=== PATIENT | male | born 1940 | race Hispanic/Latino ===

== ENCOUNTER 2016-03-29 14:00 | Inpatient (IN) | payer MEDICARE, OTHER ==
[2016-03-29] MEDS ORDERED: XOPENEX IH ONE (16:47)
[2016-03-29] MEDS ORDERED: MAGNESIUM SULFATE 2GM/50ML 50 ML IV ONE (16:47)
[2016-03-29] MEDS ORDERED: ATROVENT IH ONE (16:47)
--- NOTE | 2016-03-29 16:55 | Emergency Department Report ---
ED Shortness of Breath HPI - General Chief Complaint: Dyspnea/Respdistress Stated Complaint: DIFF BREATHING Time Seen by Provider: 03/29/16 16:40 Source: patient, EMS, old records reviewed Mode of arrival: Stretcher Limitations: No Limitations - History of Present Illness Initial Comments: 75-year-old male with a past medical history of COPD presents to the hospital complaining of shortness of breath 1 week. Patient using his Combivent without improvement. Symptoms with exertion. Improved with rest. He denies home oxygen or nebulizer use. Patient denies cough, fever, or chest pain. - Related Data Previous Rx's Medication Instructions Recorded Last Taken Type Pantoprazole [Protonix] 40 mg PO QDAY #30 tablet 03/13/16 Unknown Rx Allergies Allergy/AdvReac Type Severity Reaction Status Date / Time No Known Allergies Allergy Verified 03/29/16 15:03 ED Review of Systems ROS: Stated complaint: DIFF BREATHING Other details as noted in HPI Comment: All other systems reviewed and negative Other: Constitutional: No fevers chills Eyes: No eye pain visual changes ENT: No ear pain or throat pain Neck: Denies pain Respiratory: as per hpi Cardiovascular: Denies chest pain, palpitations, syncope GI: Denies abdominal pain, nausea, vomiting, diarrhea, : Denies dysuria, urinary frequency, or urgency Musculoskeletal: Denies back pain, joint swelling Skin: Denies rash, lesions, erythema Neurologic: Denies headache, numbness, weakness Psychiatric: Denies suicidal ideation, hallucinations ED Past Medical Hx - Past Medical History Hx Hypertension: Yes Hx GERD: Yes Hx COPD: Yes Additional medical history: Macular degeneration. SBO. hernia (doesn't remember what type) - Surgical History Hx Appendectomy: Yes Additional Surgical History: BLOOD CLOTS BEHIND RIGHT EYE REMOVED. CATARACT SURGERY BOTH EYES REMOVED. HERNIA REPAIR - Social History Smoking Status: Former Smoker - Medications Home Medications: Home Medications Medication Instructions Recorded Confirmed Last Taken Type Pantoprazole [Protonix] 40 mg PO QDAY #30 tablet 03/13/16 Unknown Rx ED Physical Exam - General Limitations: No Limitations - Other Other exam information: General: No limitations, patient is alert in no acute distress Head exam: Atraumatic, normocephalic Eyes exam: Normal appearance, pupils equal reactive to light, extraocular movements intact ENT: Moist mucous membrane, normal oropharynx Neck exam: Normal inspection, full range of motion, no meningismus nontender Respiratory exam: Inspiratory and expiratory wheeze, tachypnea, accessory muscle use Cardiovascular: Mild tachycardia Abdomen: Soft, nondistended, and nontender, with normal bowel sounds, no rebound, or guarding Extremity: Full range of motion normal inspection no deformity, no calf tenderness, asymmetry, or edema Back: Normal Inspection, full range of motion, no tenderness Neurologic: Alert, oriented x3, cranial nerves intact, no motor or sensory deficit Psychiatric: normal affect, normal mood Skin: Warm, dry, intactm ED Course Vital Signs 03/29/16 16:47 Pulse Rate [ 111 H Anterior Bilateral Throughout] Respiratory 26 H Rate [Anterior Bilateral Throughout] - Reevaluation(s) Reevaluation #1: 03/29/16 17:53 Physician he feels better after breathing treatments but still has significant tachypnea with movement. ED Medical Decision Making - Lab Data Result diagrams: 03/29/16 16:58 03/29/16 16:51 Lab Results 03/29/16 03/29/16 Range/Units 16:51 16:58 WBC 12.5 H (4.5-11.0) K/mm3 RBC 4.37 (3.65-5.03) M/mm3 Hgb 12.4 (11.8-15.2) gm/dl Hct 37.9 (35.5-45.6) % MCV 87 (84-94) fl MCH 28 (28-32) pg MCHC 33 (32-34) % RDW 14.4 (13.2-15.2) % Plt Count 280 (140-440) K/mm3 Lymph % (Auto) 13.8 (13.4-35.0) % [place] % (Auto) 8.3 H (0.0-7.3) % Eos % (Auto) 1.4 (0.0-4.3) % Baso % (Auto) 0.9 (0.0-1.8) % Lymph # 1.7 (1.2-5.4) K/mm3 [place] # 1.0 H (0.0-0.8) K/mm3 Eos # 0.2 (0.0-0.4) K/mm3 Baso # 0.1 (0.0-0.1) K/mm3 Seg Neutrophils % 75.6 H (40.0-70.0) % Seg Neutrophils # 9.4 H (1.8-7.7) K/mm3 Sodium 142 (137-145) mmol/L Potassium 4.0 (3.6-5.0) mmol/L Chloride 97.4 L (98-107) mmol/L Carbon Dioxide 29 (22-30) mmol/L Anion Gap 20 mmol/L BUN 17 (9-20) mg/dL Creatinine 0.5 L (0.8-1.5) mg/dL Estimated GFR > 60 ml/min BUN/Creatinine Ratio 34.00 % Glucose 120 H (75-100) mg/dL Calcium 9.5 (8.4-10.2) mg/dL Total Creatine Kinase 53 L (55-170) units/L CK-MB (CK-2) 1.9 (0.0-4.0) ng/mL CK-MB (CK-2) Rel Index 3.5 (0-4) Troponin T < 0.010 (0.00-0.029) ng/mL NT-Pro-B Natriuret Pep 102.7 (0-900) pg/mL - EKG Data -: EKG Interpreted by Me (sinus tach incomplete RBBB rate 112) - Radiology Data Radiology results: image reviewed (cxr portable: increased interstial markings likley chronic) - Medical Decision Making Patient treated with Xopenex, Atrovent, and Solu-Medrol and will be admitted to the hospital for further treatment of compartment syndrome - Differential Diagnosis COPD, pneumonia, asthma, bronchitis, CHF Critical Care Time: No Critical care attestation.: If time is entered above; I have spent that time in minutes in the direct care of this critically ill patient, excluding procedure time. ED Disposition Clinical Impression: COPD exacerbation Disposition: OP ADMITTED IP TO THIS HOSP Is pt being admited?: Yes Does the pt Need Aspirin: No Condition: Stable Time of Disposition: 17:53 (Dr Peña/hosp)
[2016-03-29 17:28] LABS: Basophils % (Auto) 0.9 % (0.0-1.8); Eosinophils % (Auto) 1.4 % (0.0-4.3); Hematocrit 37.9 % (35.5-45.6); Hemoglobin 12.4 gm/dl (11.8-15.2); Mean Corpuscular HGB Conc 33 % (32-34); Mean Corpuscular Hemoglobin 28 pg (28-32); Mean Corpuscular Volume 87 fl (84-94); Platelet Count 280 K/mm3 (140-440); Red Blood Count 4.37 M/mm3 (3.65-5.03); Red Cell Distribution Width 14.4 % (13.2-15.2); White Blood Count 12.5 K/mm3 (4.5-11.0)
[2016-03-29 17:30] LABS: Creatine Kinase MB 1.9 ng/mL (0.0-4.0)
[2016-03-29 17:31] LABS: Blood Urea Nitrogen 17 mg/dL (9-20); Calcium 9.5 mg/dL (8.4-10.2); Carbon Dioxide 29 mmol/L (22-30); Chloride 97.4 mmol/L (98-107); Creatine Kinase 53 units/L (55-170); Glucose 120 mg/dL (75-100); Sodium 142 mmol/L (137-145)
[2016-03-29 17:32] LABS: Anion Gap 20 mmol/L
[2016-03-29] MEDS ORDERED: APRESOLINE IV PRN (18:41)
--- NOTE | 2016-03-29 18:48 | History and Physical Report ---
History of Present Illness Date of examination: 03/29/16 History of present illness: 75-year-old man with a history of COPD who was just discharged from the hospital today returned with complaints shortness of breath. He has been using his nebulizer treatment without any significant improvement. He denies cough, fever chills Patient denies chest pain, palpitation, abdominal pain, hematochezia, dysuria, frequency, focal weakness, dysarthria, fever chills, polydipsia polyuria, hot or cold intolerance, easy bruisability, or rash or bleeding from mucosal membrane, rhinorrhea, epistaxis, earache, tinnitus, blurry vision, eye discharge , anxiety, depression. Other review of systems negative PAST SURGICAL HISTORY: Appendectomy, hernia repair, cataract extraction SOCIAL HISTORY: Quit smoking 8 years ago, drinks 2 beers a day, no drugs FAMILY HISTORY: Hypertension Medications and Allergies Allergies Allergy/AdvReac Type Severity Reaction Status Date / Time No Known Allergies Allergy Verified 03/29/16 15:03 Home Medications Medication Instructions Recorded Confirmed Last Taken Type Ergocalciferol (Vitamin D2) 400 unit PO DAILY 03/29/16 03/29/16 03/29/16 History [Vitamin D] Ipratropium/Albuter (Nf) 4 puff IH 4XD #1 inha 04/01/16 Unknown Rx [Combivent Inhaler] Levofloxacin [Levaquin] 750 mg PO QDAY #5 tablet 04/01/16 Unknown Rx Pantoprazole [Protonix TAB] 40 mg PO QDAY #30 tablet 04/01/16 Unknown Rx Prednisone [predniSONE 10 mg 10 mg PO .TAPER #1 tab.ds.pk 04/01/16 Unknown Rx (6-Day Pack, 21 Tabs)] Active Meds: Active Medications Hydralazine HCl (Apresoline) 5 mg IV Q6HR PRN PRN Reason: Hypertension Pantoprazole Sodium (Protonix) 40 mg PO QDAY ARSENIO Exam - Physical Exam Narrative exam: Gen. appearance: Patient lying in bed, no apparent distress HEENT: Normocephalic, atraumatic, pupils equally round and reactive to light, extraocular movement intact, and no sclericterus,. No JVD or thyromegaly or nodule,neck supple, no carotid bruit ,mucous membranes moist, no exudate or erythema Heart: S1, S2, regular rate and rhythm Lungs: Decreased air entry, wheezing bilaterally, breathing comfortable Abdomen: Positive bowel sounds, nontender, nondistended, no organomegaly Extremity: No edema, cyanosis, clubbing Skin: No rash, nodules, warm, dry Neuro: Oriented 3, cranial nerves II-12 intact, speech is fluent, motor and sensory intact - Constitutional Vitals: Temp Pulse Resp BP Pulse Ox 108 H 25 H 03/29/16 17:05 03/29/16 17:05 Results - Labs CBC & Chem 7: 03/30/16 04:56 03/30/16 04:56 Labs: Abnormal lab results 03/29/16 03/29/16 Range/Units 16:51 16:58 WBC 12.5 H (4.5-11.0) K/mm3 [place] % (Auto) 8.3 H (0.0-7.3) % [place] # 1.0 H (0.0-0.8) K/mm3 Seg Neutrophils % 75.6 H (40.0-70.0) % Seg Neutrophils # 9.4 H (1.8-7.7) K/mm3 Chloride 97.4 L (98-107) mmol/L Creatinine 0.5 L (0.8-1.5) mg/dL Glucose 120 H (75-100) mg/dL Total Creatine Kinase 53 L (55-170) units/L - Imaging and Cardiology EKG: image reviewed Chest x-ray: image reviewed (nad, read by me) Assessment and Plan COPD exacerbation Elevated blood pressure Admits medicine Start high-dose IV steroids, nebulizer treatments Check cardiac enzymes, d-dimer start IV hydralazine is here for blood pressure control, DVT prophylaxis
[2016-03-29] MEDS ORDERED: TYLENOL PO PRN (20:35)
[2016-03-29] MEDS ORDERED: MILK OF MAGNESIA PO PRN (20:35)
[2016-03-29] MEDS ORDERED: DULCOLAX PR PRN (20:35)
[2016-03-29 21:36] LABS: Creatine Kinase MB 2.2 ng/mL (0.0-4.0)
[2016-03-29 21:37] LABS: Creatine Kinase 57 units/L (55-170)
[2016-03-29] MEDS: ZOFRAN IV PRN (22:29)
[2016-03-29] MEDS: DUONEB 0.5 MG-3 MG/3 ML SOLN IH SCH (22:29)
[2016-03-30] MEDS: DUONEB 0.5 MG-3 MG/3 ML SOLN IH SCH ×4 (03:07→20:44)
[2016-03-30 05:50] LABS: Basophils % (Auto) 0.2 % (0.0-1.8); Hematocrit 33.8 % (35.5-45.6); Hemoglobin 11.3 gm/dl (11.8-15.2); Mean Corpuscular HGB Conc 34 % (32-34); Mean Corpuscular Hemoglobin 29 pg (28-32); Mean Corpuscular Volume 87 fl (84-94); Platelet Count 238 K/mm3 (140-440)
[2016-03-30 06:04] LABS: Anion Gap 20 mmol/L; BUN/Creatinine Ratio 34.28; Blood Urea Nitrogen 24 mg/dL (9-20); Calcium 9.1 mg/dL (8.4-10.2); Carbon Dioxide 29 mmol/L (22-30); Chloride 96.6 mmol/L (98-107); Glucose 215 mg/dL (75-100); Potassium 4.4 mmol/L (3.6-5.0); Sodium 141 mmol/L (137-145)
[2016-03-30 06:06] LABS: Creatine Kinase MB 2.5 ng/mL (0.0-4.0)
[2016-03-30 06:10] LABS: Creatine Kinase 56 units/L (55-170)
--- NOTE | 2016-03-30 08:15 | Progress Note ---
Assessment and Plan Assessment and plan: 1. COPD exacerbation continue steroids, nebs and abx 2. Acute hypoxic respiratory failure due to #1, continue o2 supplementation 3. elevated D-dimer obtain VQ scan 4. Prehypertension patient has been normotensive today, continue prn hydralazine History Interval history: Cough and shortness of breath is mildly improved, Hospitalist Physical - Physical exam Narrative exam: General: Patient appears well in no distress HEENT: MMM, EOMI cardiac: S1-S2 heard lungs: Pituitary wheezing, no crackles abdomen: soft, nontender, nondistended bowel sounds positive extremities: no edema clubbing or cyanosis Skin: no rash or lesion Neuro: no focal deficit Psych: appropriate behavior and mood, cognition intact - Constitutional Vitals: Temp Pulse Resp BP Pulse Ox 97.6 F 92 H 17 130/69 96 03/30/16 04:00 03/30/16 07:46 03/30/16 07:46 03/30/16 04:00 03/30/16 07:46 Results - Labs CBC & Chem 7: 03/30/16 04:56 03/30/16 04:56 Labs: Laboratory Last Values WBC 6.0 K/mm3 (4.5-11.0) 03/30/16 04:56 RBC 3.90 M/mm3 (3.65-5.03) 03/30/16 04:56 Hgb 11.3 gm/dl (11.8-15.2) L 03/30/16 04:56 Hct 33.8 % (35.5-45.6) L 03/30/16 04:56 MCV 87 fl (84-94) 03/30/16 04:56 MCH 29 pg (28-32) 03/30/16 04:56 MCHC 34 % (32-34) 03/30/16 04:56 RDW 14.0 % (13.2-15.2) 03/30/16 04:56 Plt Count 238 K/mm3 (140-440) 03/30/16 04:56 Lymph % (Auto) 10.2 % (13.4-35.0) L 03/30/16 04:56 [place] % (Auto) 1.6 % (0.0-7.3) 03/30/16 04:56 Eos % (Auto) 0.0 % (0.0-4.3) 03/30/16 04:56 Baso % (Auto) 0.2 % (0.0-1.8) 03/30/16 04:56 Lymph # 0.6 K/mm3 (1.2-5.4) L 03/30/16 04:56 [place] # 0.1 K/mm3 (0.0-0.8) 03/30/16 04:56 Eos # 0.0 K/mm3 (0.0-0.4) 03/30/16 04:56 Baso # 0.0 K/mm3 (0.0-0.1) 03/30/16 04:56 Seg Neutrophils % 88.0 % (40.0-70.0) H 03/30/16 04:56 Seg Neutrophils # 5.3 K/mm3 (1.8-7.7) 03/30/16 04:56 D-Dimer 289.96 ng/mlDDU (0-234) H 03/29/16 18:52 Sodium 141 mmol/L (137-145) 03/30/16 04:56 Potassium 4.4 mmol/L (3.6-5.0) 03/30/16 04:56 Chloride 96.6 mmol/L (98-107) L 03/30/16 04:56 Carbon Dioxide 29 mmol/L (22-30) 03/30/16 04:56 Anion Gap 20 mmol/L 03/30/16 04:56 BUN 24 mg/dL (9-20) H 03/30/16 04:56 Creatinine 0.7 mg/dL (0.8-1.5) L 03/30/16 04:56 Estimated GFR > 60 ml/min 03/30/16 04:56 BUN/Creatinine Ratio 34.28 % 03/30/16 04:56 Glucose 215 mg/dL (75-100) H 03/30/16 04:56 Calcium 9.1 mg/dL (8.4-10.2) 03/30/16 04:56 Total Creatine Kinase 56 units/L (55-170) 03/30/16 04:56 CK-MB (CK-2) 2.5 ng/mL (0.0-4.0) 03/30/16 04:56 CK-MB (CK-2) Rel Index 4.4 (0-4) H 03/30/16 04:56 Troponin T < 0.010 ng/mL (0.00-0.029) 03/30/16 04:56 NT-Pro-B Natriuret Pep 102.7 pg/mL (0-900) 03/29/16 16:51 - Imaging and Cardiology Chest x-ray: image reviewed (no infiltrate, cw COPD)
--- NOTE | 2016-03-30 08:59 | Nuclear Medicine Report ---
LUNG SCAN, VENTILATION AND PERFUSION: History: Shortness of breath. Technique: 5mci of Tc99m MAA was infused for the perfusion images. 15mci XE 133 gas was inhaled for the ventilatory images. Correlation is made with a chest x-ray dated 03/29/16. Findings: Inhalation of Xenon gas demonstrates heterogeneous distribution of the activity throughout both lungs. The wash out phases demonstrate mild retention of the radiotracer in the upper lung zones. After injection of Technetium 99m macroaggregated albumin gamma camera imaging of the lungs in multiple projections demonstrates normal pulmonary contours with a heterogeneous distribution of activity. No focal areas of perfusion deficiency are identified. IMPRESSION: Low probability for pulmonary embolus. COPD.
--- NOTE | 2016-03-30 10:24 | Admit Criteria Form ---
Admission Criteria Documentation: COPD Clinical Indications for Admission to Inpatient Care (Place 'X' for any and all applicable criteria): Admission is indicated for ANY ONE of the following (1)(2)(3): [ ]I. Acute exacerbation by high-risk comorbidity (e.g., pneumonia, dysrhythmia, heart failure, pleural effusion, pneumothorax) or severe underlying COPD (e.g., steroid dependent) [X ]II. Inpatient admission required rather than observation care (see Chronic Obstructive Pulmonary Disease: Observation Care) because of ANY ONE of the following: [X ]a) New or pre-existing signs or symptoms of COPD (eg, dyspnea or Tachypnea at rest or with minimal activity) that persist despite outpatient and observation care treatment [ ]b) New-onset hypoxemia (room air SaO2 less than 90%, PO2 less than 60 mm Hg (8.0 kPa)) that persists despite outpatient and observation care treatment [ X]c) Worsening of pre-existing hypoxemia (eg, new or increased requirement for supplemental oxygen to maintain oxygenation at baseline level) that persists despite outpatient and observation care treatment, with oxygen treatment needs performable only in acute inpatient setting [ ]d) Hypercarbia (PCO2 greater than 40 mm Hg (5.3 kPa))-induced respiratory acidosis (pH less than 7.35) that persists despite outpatient and observation care treatment [ ]e) Supplemental oxygen or respiratory treatments for over 24 hours that are performable only in acute inpatient setting [ ]f) Chest tube placement with active evacuation (e.g., suction, drainage) (5) [ ]g) Other condition, treatment or monitoring requiring inpatient admission [ ]III. Planned invasive surgical or diagnostic procedures requiring acute- care hospitalization [ ]IV. Acute respiratory failure (e.g., uncompensated hypercarbia, severe hypoxemia) [ ]V. Severe comorbid condition (e.g., severe steroid myopathy, acute vertebral fracture) that has acutely worsened pulmonary function [ ]. Confusion state, lethargy, obtundation, stupor or coma Extended stay beyond goal length of stay may be needed for (31)(32): [ ]a ) Respiratory Failure. [ ]b) Severe or persisting hypoxemia or hypercarbia [ ]c) Severe or persistent dyspnea [ ]d) Comorbidities (e.g. chronic heart failure, atrial fibrillation with rapid response, pneumonia) [ ]e) Malnutrition The original [facility] content created by [facility] has been revised. The portions of the content which have been revised are identified through the use of italic text or in bold, and [facility]formerly [facility] has neither reviewed nor approved the modified material. All other unmodified content is copyright [facility]. Please see references footnoted in the original [facility] 2016 Admission Criteria Met: Yes
[2016-03-30] MEDS: LEVAQUIN 750MG/150ML 150 ML IV SCH (11:09)
[2016-03-30] MEDS: LOVENOX SUB-Q SCH (11:11)
[2016-03-30] MEDS: PROTONIX PO SCH (11:13)
[2016-03-30] MEDS: ZOFRAN IV PRN (23:50)
[2016-03-31] MEDS: DUONEB 0.5 MG-3 MG/3 ML SOLN IH SCH ×4 (01:50→21:02)
--- NOTE | 2016-03-31 07:16 | XRay Report ---
AP CHEST: HISTORY: Shortness of breath. FINDINGS: Severe emphysematous changes are stable since 03/10/16. There is no evidence for pneumonia, pleural effusion or pneumothorax. Pleural calcifications at the right lung base are noted and may be related to previous asbestos exposure or other pleural insult. Normal heart size and pulmonary vascularity. IMPRESSION: Severe emphysema. No acute process.
[2016-03-31] MEDS: LEVAQUIN 750MG/150ML 150 ML IV SCH (09:36)
[2016-03-31] MEDS: PROTONIX PO SCH (09:37)
[2016-03-31] MEDS: LOVENOX SUB-Q SCH (09:37)
--- NOTE | 2016-03-31 11:33 | Progress Note ---
Assessment and Plan Assessment and plan: 1. COPD exacerbation continue steroids, nebs and abx 2. Acute hypoxic respiratory failure due to #1, continue o2 supplementation will need home o2 set up 3. elevated D-dimer VS scan negative 4. Prehypertension patient has been normotensive today, continue prn hydralazine tentative dc home tomorrow on home oxygen History Interval history: Cough and shortness of breath is mildly improved, Hospitalist Physical - Physical exam Narrative exam: General: Patient appears well in no distress HEENT: MMM, EOMI cardiac: S1-S2 heard lungs: Pituitary wheezing, no crackles abdomen: soft, nontender, nondistended bowel sounds positive extremities: no edema clubbing or cyanosis Skin: no rash or lesion Neuro: no focal deficit Psych: appropriate behavior and mood, cognition intact - Constitutional Vitals: Temp Pulse Resp BP Pulse Ox 98.1 F 105 H 18 145/72 98 03/31/16 07:00 03/31/16 09:30 03/31/16 09:30 03/31/16 07:00 03/31/16 09:40 Results - Labs CBC & Chem 7: 03/30/16 04:56 03/30/16 04:56 Labs: Laboratory Last Values WBC 6.0 K/mm3 (4.5-11.0) 03/30/16 04:56 RBC 3.90 M/mm3 (3.65-5.03) 03/30/16 04:56 Hgb 11.3 gm/dl (11.8-15.2) L 03/30/16 04:56 Hct 33.8 % (35.5-45.6) L 03/30/16 04:56 MCV 87 fl (84-94) 03/30/16 04:56 MCH 29 pg (28-32) 03/30/16 04:56 MCHC 34 % (32-34) 03/30/16 04:56 RDW 14.0 % (13.2-15.2) 03/30/16 04:56 Plt Count 238 K/mm3 (140-440) 03/30/16 04:56 Lymph % (Auto) 10.2 % (13.4-35.0) L 03/30/16 04:56 [place] % (Auto) 1.6 % (0.0-7.3) 03/30/16 04:56 Eos % (Auto) 0.0 % (0.0-4.3) 03/30/16 04:56 Baso % (Auto) 0.2 % (0.0-1.8) 03/30/16 04:56 Lymph # 0.6 K/mm3 (1.2-5.4) L 03/30/16 04:56 [place] # 0.1 K/mm3 (0.0-0.8) 03/30/16 04:56 Eos # 0.0 K/mm3 (0.0-0.4) 03/30/16 04:56 Baso # 0.0 K/mm3 (0.0-0.1) 03/30/16 04:56 Seg Neutrophils % 88.0 % (40.0-70.0) H 03/30/16 04:56 Seg Neutrophils # 5.3 K/mm3 (1.8-7.7) 03/30/16 04:56 D-Dimer 289.96 ng/mlDDU (0-234) H 03/29/16 18:52 Sodium 141 mmol/L (137-145) 03/30/16 04:56 Potassium 4.4 mmol/L (3.6-5.0) 03/30/16 04:56 Chloride 96.6 mmol/L (98-107) L 03/30/16 04:56 Carbon Dioxide 29 mmol/L (22-30) 03/30/16 04:56 Anion Gap 20 mmol/L 03/30/16 04:56 BUN 24 mg/dL (9-20) H 03/30/16 04:56 Creatinine 0.7 mg/dL (0.8-1.5) L 03/30/16 04:56 Estimated GFR > 60 ml/min 03/30/16 04:56 BUN/Creatinine Ratio 34.28 % 03/30/16 04:56 Glucose 215 mg/dL (75-100) H 03/30/16 04:56 Calcium 9.1 mg/dL (8.4-10.2) 03/30/16 04:56 Total Creatine Kinase 56 units/L (55-170) 03/30/16 04:56 CK-MB (CK-2) 2.5 ng/mL (0.0-4.0) 03/30/16 04:56 CK-MB (CK-2) Rel Index 4.4 (0-4) H 03/30/16 04:56 Troponin T < 0.010 ng/mL (0.00-0.029) 03/30/16 04:56 NT-Pro-B Natriuret Pep 102.7 pg/mL (0-900) 03/29/16 16:51
[2016-04-01] MEDS: DUONEB 0.5 MG-3 MG/3 ML SOLN IH SCH ×4 (02:48→21:02)
[2016-04-01] MEDS: PROTONIX PO SCH (09:01)
[2016-04-01] MEDS: LOVENOX SUB-Q SCH (09:01)
[2016-04-01] MEDS: LEVAQUIN 750MG/150ML 150 ML IV SCH (09:01)
--- NOTE | 2016-04-01 10:35 | Discharge Summary ---
Providers - Providers Date of Admission: 03/29/16 18:35 Attending physician: TAMIE LOZANO MD Primary care physician: PRODUCTION OFFICER Hospitalization Condition: Stable Hospital course: 75M with pmh of COPD who presented with SOB, HUMPHREY, and wheezing. 1. COPD exacerbation treated with steroids, nebs and abx 2. Acute hypoxic respiratory failure rx with supplemental oxygen, home oxygen set up prior to discharge 3. elevated D-dimer VS scan was negative 4. Prehypertension patient has been normotensive throughout admission course and did not require medications Disposition: DISCHARGED TO HOME OR SELFCARE Time spent for discharge: 35 minutes Core Measure Documentation - Palliative Care Palliative Care/ Comfort Measures: Not Applicable - Core Measures Any of the following diagnoses?: none Exam - Constitutional Vitals: Temp Pulse Resp BP Pulse Ox 98.2 F 111 H 18 145/68 97 03/31/16 21:38 04/01/16 09:08 04/01/16 09:08 03/31/16 21:38 04/01/16 08:50 General appearance: Present: no acute distress, well-nourished - EENT Eyes: Present: PERRL ENT: hearing intact, clear oral mucosa - Neck Neck: Present: supple, normal ROM - Respiratory Respiratory effort: normal Respiratory: bilateral: CTA - Cardiovascular Heart Sounds: Present: S1 & S2. Absent: rub, click - Extremities Extremities: pulses symmetrical, No edema Peripheral Pulses: within normal limits - Abdominal General gastrointestinal: Present: soft, non-tender, non-distended, normal bowel sounds Male genitourinary: Present: normal - Integumentary Integumentary: Present: clear, warm, dry - Musculoskeletal Musculoskeletal: gait normal, strength equal bilaterally - Psychiatric Psychiatric: appropriate mood/affect, intact judgment & insight - Neurologic Neurologic: CNII-XII intact, moves all extremities Plan Follow up with: PRIMARY CARE, [Primary Care Provider] - 3-5 Days DANIEL MAHMOOD MD [Staff Physician] - 7 Days Prescriptions: Ipratropium/Albuter (Nf) [Combivent Inhaler] 4 puff IH 4XD #1 inha Levofloxacin [Levaquin] 750 mg PO QDAY #5 tablet Pantoprazole [Protonix TAB] 40 mg PO QDAY #30 tablet Prednisone [predniSONE 10 mg (6-Day Pack, 21 Tabs)] 10 mg PO .TAPER #1 tab.ds.pk
[2016-04-01] MEDS ORDERED: LEVAQUIN PO SCH (13:00)
[2016-04-02] MEDS: DUONEB 0.5 MG-3 MG/3 ML SOLN IH SCH ×4 (02:48→20:11)
[2016-04-02] MEDS ORDERED: LEVAQUIN PO SCH (10:00)
[2016-04-02] MEDS: PROTONIX PO SCH (10:00)
[2016-04-02] MEDS: LOVENOX SUB-Q SCH (10:00)
[2016-04-02 10:16] VITALS: BP 169/78
== END 2016-04-02 14:50 | disposition home or self-care (01) | DRG 189 ==
LOC: ED 14:00 → 3A 18:35 → 2B-SURG 03-30 01:07
PROVIDERS: ADMIT Internal Medicine; ATTEND Internal Medicine
DX: J96.01 Acute respiratory failure with hypoxia (principal); J44.1 Chronic obstructive pulmonary disease with (acute) exacerbation; I10 Essential (primary) hypertension; K21.9 Gastro-esophageal reflux disease without esophagitis; Z98.42 Cataract extraction status, left eye; Z98.41 Cataract extraction status, right eye; Z87.891 Personal history of nicotine dependence; Z90.49 Acquired absence of other specified parts of digestive tract; Z82.49 Family history of ischemic heart disease and other diseases of the circulatory system; Z99.81 Dependence on supplemental oxygen
CPT/HCPCS: 36415; 71010; 78582; 80048; 82550; 82553; 83880; 84484; 85025; 85379; 93005; 93010; 94640; 94760; 96374; A9540; A9558; J0360; J1650; J1956; J2405; J2930; J3475

== ENCOUNTER 2017-02-24 20:52 | Emergency (ER) | payer MEDICARE, OTHER ==
[2017-02-24 23:35] LABS: Basophils % (Auto) 1.2 % (0.0-1.8); Eosinophils % (Auto) 2.8 % (0.0-4.3); Hematocrit 41.1 % (35.5-45.6); Hemoglobin 13.7 gm/dl (11.8-15.2); Mean Corpuscular HGB Conc 33 % (32-34); Mean Corpuscular Hemoglobin 31 pg (28-32); Mean Corpuscular Volume 92 fl (84-94); Platelet Count 222 K/mm3 (140-440); Red Blood Count 4.48 M/mm3 (3.65-5.03); Red Cell Distribution Width 13.9 % (13.2-15.2)
[2017-02-24 23:44] LABS: Anion Gap 20 mmol/L; BUN/Creatinine Ratio 34; Blood Urea Nitrogen 27 mg/dL (9-20); Calcium 9.5 mg/dL (8.4-10.2); Carbon Dioxide 29 mmol/L (22-30); Glucose 106 mg/dL (75-100); Potassium 4.6 mmol/L (3.6-5.0); Sodium 145 mmol/L (137-145)
--- NOTE | 2017-02-25 00:14 | XRay Report ---
FINAL REPORT EXAM: XR CHEST ROUTINE 2V HISTORY: chest pain TECHNIQUE: PA and lateral views of the chest were submitted. There are no previous studies available for comparison. FINDINGS: The lungs are emphysematous. There are no localized infiltrates nodules or effusions. The heart size is normal. The lungs are not congested. The skeletal structures reveal generalized osteoporosis. IMPRESSION: Emphysema. No acute process in the chest.
--- NOTE | 2017-02-25 00:50 | Emergency Department Report ---
ED Chest Pain HPI - General Chief Complaint: Chest Pain Stated Complaint: CHEST PAIN Time Seen by Provider: 02/24/17 22:55 Source: patient Mode of arrival: Ambulatory Limitations: No Limitations - History of Present Illness Initial Comments: Patient reports chest pain that started 4 days ago and started with pinpoint pain in the left intercostal ribs but feels it is going higher in the chest. no SOB but does have history of SOB. Does have history of emphysema. No HTN, DM , HL medical history. No exertional chest pain. MD Complaint: chest pain -: days(s) (4) Onset: during rest Pain Location: left chest Pain Radiation: none Severity: moderate Severity scale (0 -10): 8 Quality: sharp Consistency: constant Improves With: nothing Worsens With: palpation re: nausea (denies), diaphoresis (denies), other Other Symptoms: palpitations Treatments Prior to Arrival: none Aspirin use within the Past 7 Days: (0) No - Related Data Home Medications Medication Instructions Recorded Confirmed Last Taken Ergocalciferol(Vitamin D2)(Nf) 400 unit PO DAILY 03/29/16 03/29/16 03/29/16 [Vitamin D (Nf)] Previous Rx's Medication Instructions Recorded Last Taken Type Ipratropium/Albuter (Nf) 4 puff IH 4XD #1 inha 04/01/16 Unknown Rx [Combivent Inhaler] Levofloxacin [Levaquin] 750 mg PO QDAY #5 tablet 04/01/16 Unknown Rx Pantoprazole [Protonix TAB] 40 mg PO QDAY #30 tablet 04/01/16 Unknown Rx Prednisone [predniSONE 10 mg 10 mg PO .TAPER #1 tab.ds.pk 04/01/16 Unknown Rx (6-Day Pack, 21 Tabs)] Cyclobenzaprine [Flexeril] 10 mg PO TID PRN 10 Days #30 tablet 02/25/17 Unknown Rx Allergies Allergy/AdvReac Type Severity Reaction Status Date / Time No Known Allergies Allergy Verified 03/29/16 15:03 Heart Score - HEART Score History: Slightly suspicious EKG: Normal Age: > 65 Risk factors: No known risk factors Troponin: < normal limit HEART Score: 2 ED Review of Systems ROS: Stated complaint: CHEST PAIN Other details as noted in HPI Constitutional: denies: chills, fever Eyes: denies: eye pain, eye discharge, vision change ENT: denies: ear pain, throat pain Respiratory: denies: cough, shortness of breath, wheezing Cardiovascular: chest pain. denies: palpitations Endocrine: no symptoms reported Gastrointestinal: denies: abdominal pain, nausea, diarrhea Genitourinary: denies: urgency, dysuria Musculoskeletal: denies: back pain, joint swelling, arthralgia Skin: denies: rash, lesions Neurological: denies: headache, weakness, paresthesias Psychiatric: denies: anxiety, depression Hematological/Lymphatic: denies: easy bleeding, easy bruising ED Past Medical Hx - Past Medical History Hx Hypertension: Yes Hx GERD: Yes Hx COPD: Yes Additional medical history: Macular degeneration. SBO. hernia (doesn't remember what type) - Surgical History Hx Appendectomy: Yes Additional Surgical History: BLOOD CLOTS BEHIND RIGHT EYE REMOVED. CATARACT SURGERY BOTH EYES REMOVED. HERNIA REPAIR - Social History Smoking Status: Former Smoker - Medications Home Medications: Home Medications Medication Instructions Recorded Confirmed Last Taken Type Ergocalciferol(Vitamin D2)(Nf) 400 unit PO DAILY 03/29/16 03/29/16 03/29/16 History [Vitamin D (Nf)] Ipratropium/Albuter (Nf) 4 puff IH 4XD #1 inha 04/01/16 Unknown Rx [Combivent Inhaler] Levofloxacin [Levaquin] 750 mg PO QDAY #5 tablet 04/01/16 Unknown Rx Pantoprazole [Protonix TAB] 40 mg PO QDAY #30 tablet 04/01/16 Unknown Rx Prednisone [predniSONE 10 mg 10 mg PO .TAPER #1 tab.ds.pk 04/01/16 Unknown Rx (6-Day Pack, 21 Tabs)] Cyclobenzaprine [Flexeril] 10 mg PO TID PRN 10 Days #30 tablet 02/25/17 Unknown Rx ED Physical Exam - General Limitations: No Limitations General appearance: alert, in no apparent distress - Head Head exam: Present: atraumatic, normocephalic - Eye Eye exam: Present: normal appearance - ENT ENT exam: Present: mucous membranes moist - Neck Neck exam: Present: normal inspection - Respiratory Respiratory exam: Present: normal lung sounds bilaterally. Absent: respiratory distress - Cardiovascular Cardiovascular Exam: Present: regular rate, normal rhythm. Absent: systolic murmur, diastolic murmur, rubs, gallop - GI/Abdominal GI/Abdominal exam: Present: soft, normal bowel sounds - Rectal Rectal exam: Present: deferred - Extremities Exam Extremities exam: Present: normal inspection, other (chest wall pain with palpation) - Back Exam Back exam: Present: normal inspection - Neurological Exam Neurological exam: Present: alert, oriented X3 - Psychiatric Psychiatric exam: Present: normal affect, normal mood - Skin Skin exam: Present: warm, dry, intact, normal color. Absent: rash ED Course Vital Signs 02/24/17 02/24/17 21:04 23:53 Temperature 98.1 F Pulse Rate 10 L Respiratory 24 20 Rate Blood Pressure 166/75 O2 Sat by Pulse 94 Oximetry ED Medical Decision Making - Lab Data Result diagrams: 02/24/17 23:07 02/24/17 23:07 Unremarkable labs. - EKG Data -: EKG Interpreted by Me EKG shows normal: sinus rhythm, axis, intervals, ST-T waves Rate: normal - EKG Data Interpretation: no acute changes, normal EKG - Radiology Data CXR: no acute process. has emphysema. - Medical Decision Making Patient with normal cardiac workup. Likely musculoskeletal. Will do flexeril and he can follow up with PCP. Critical care attestation.: If time is entered above; I have spent that time in minutes in the direct care of this critically ill patient, excluding procedure time. ED Disposition Clinical Impression: Chest pain, atypical, Costochondritis, Muscle spasm Disposition: - TO HOME OR SELFCARE Is pt being admited?: No Does the pt Need Aspirin: No Condition: Stable Instructions: Chest Pain (ED) Prescriptions: Cyclobenzaprine [Flexeril] 10 mg PO TID PRN 10 Days #30 tablet PRN Reason: Muscle Spasm Referrals: [facility] [Outside] - 3-5 Days Time of Disposition: 00:55
[2017-02-25 01:11] VITALS: BP 154/71
== END 2017-02-25 01:10 | disposition home or self-care (01) ==
LOC: ED 20:52
DX: M94.0 Chondrocostal junction syndrome [Tietze] (principal); M62.838 Other muscle spasm; R07.89 Other chest pain; I10 Essential (primary) hypertension; K21.9 Gastro-esophageal reflux disease without esophagitis; J44.9 Chronic obstructive pulmonary disease, unspecified
CPT/HCPCS: 36415; 71020; 80048; 84484; 85025; 93005; 93010

== ENCOUNTER 2017-07-01 09:16 | Inpatient (IN) | payer MEDICARE, OTHER ==
[2017-07-01] MEDS ORDERED: DUONEB *Not for PRN Use IH ONE ×2 (09:55→13:41)
--- NOTE | 2017-07-01 09:55 | Emergency Department Report ---
ED General Adult HPI - General Chief complaint: Dyspnea/Respdistress Stated complaint: DIFFICULTY BREATHING Time Seen by Provider: 07/01/17 09:54 Source: patient Mode of arrival: Ambulatory Limitations: No Limitations - History of Present Illness Initial comments: copd resp distress, chronic home o2, sats were worse today w increased wob, here for poss fever, cough worse copd, here for eval worsening of his chronic lung disease with possible fever. Denies any chest pain denies any calf pain or swelling has a history of previous admits with BiPAP here today with worsening respiratory status -: Gradual Radiation: non-radiation Associated Symptoms: cough, diaphoresis, fever/chills, malaise, shortness of breath. denies: chest pain, headaches, loss of appetite, nausea/vomiting, rash , seizure, syncope, weakness - Related Data Home Medications Medication Instructions Recorded Confirmed Last Taken Ergocalciferol(Vitamin D2)(Nf) 400 unit PO DAILY 03/29/16 03/29/16 03/29/16 [Vitamin D (Nf)] Previous Rx's Medication Instructions Recorded Last Taken Type Ipratropium/Albuter (Nf) 4 puff IH 4XD #1 inha 04/01/16 Unknown Rx [Combivent Inhaler] Levofloxacin [Levaquin] 750 mg PO QDAY #5 tablet 04/01/16 Unknown Rx Pantoprazole [Protonix TAB] 40 mg PO QDAY #30 tablet 04/01/16 Unknown Rx Prednisone [predniSONE 10 mg 10 mg PO .TAPER #1 tab.ds.pk 04/01/16 Unknown Rx (6-Day Pack, 21 Tabs)] Cyclobenzaprine [Flexeril] 10 mg PO TID PRN 10 Days #30 tablet 02/25/17 Unknown Rx Allergies Allergy/AdvReac Type Severity Reaction Status Date / Time No Known Allergies Allergy Verified 03/29/16 15:03 ED Review of Systems ROS: Stated complaint: DIFFICULTY BREATHING Other details as noted in HPI Comment: All other systems reviewed and negative Constitutional: fever, malaise Eyes: denies: eye discharge, vision change ENT: denies: dental pain, hearing loss, epistaxis Respiratory: shortness of breath, SOB with exertion, SOB at rest, wheezing. denies: stridor Cardiovascular: denies: chest pain, palpitations, dyspnea on exertion, orthopnea , edema, syncope Gastrointestinal: denies: abdominal pain, nausea, vomiting, diarrhea, constipation, hematemesis, melena, hematochezia Musculoskeletal: denies: back pain, joint swelling, arthralgia, myalgia Skin: denies: rash, lesions Neurological: denies: headache, weakness, numbness, paresthesias, confusion ED Past Medical Hx - Past Medical History Previous Medical History?: Yes Hx Hypertension: Yes Hx GERD: Yes Hx COPD: Yes Additional medical history: Macular degeneration. SBO. hernia (doesn't remember what type) - Surgical History Past Surgical History?: Yes Hx Appendectomy: Yes Additional Surgical History: BLOOD CLOTS BEHIND RIGHT EYE REMOVED. CATARACT SURGERY BOTH EYES REMOVED. HERNIA REPAIR - Social History Smoking Status: Former Smoker Substance Use Type: Alcohol, Prescribed - Medications Home Medications: Home Medications Medication Instructions Recorded Confirmed Last Taken Type Ergocalciferol(Vitamin D2)(Nf) 400 unit PO DAILY 03/29/16 03/29/16 03/29/16 History [Vitamin D (Nf)] Ipratropium/Albuter (Nf) 4 puff IH 4XD #1 inha 04/01/16 Unknown Rx [Combivent Inhaler] Levofloxacin [Levaquin] 750 mg PO QDAY #5 tablet 04/01/16 Unknown Rx Pantoprazole [Protonix TAB] 40 mg PO QDAY #30 tablet 04/01/16 Unknown Rx Prednisone [predniSONE 10 mg 10 mg PO .TAPER #1 tab.ds.pk 04/01/16 Unknown Rx (6-Day Pack, 21 Tabs)] Cyclobenzaprine [Flexeril] 10 mg PO TID PRN 10 Days #30 tablet 02/25/17 Unknown Rx ED Physical Exam - General Limitations: No Limitations General appearance: alert, in distress (moderate respiratory distress) - Head Head exam: Present: atraumatic, normocephalic - Eye Eye exam: Present: PERRL, EOMI - ENT ENT exam: Present: normal exam - Neck Neck exam: Present: normal inspection. Absent: tenderness, meningismus - Respiratory Respiratory exam: Present: respiratory distress, wheezes, rales, rhonchi, accessory muscle use, prolonged expiratory. Absent: stridor - Cardiovascular Cardiovascular Exam: Present: regular rate, tachycardia, normal heart sounds - GI/Abdominal GI/Abdominal exam: Present: soft. Absent: tenderness, guarding, rebound - Extremities Exam Extremities exam: Present: normal inspection, normal capillary refill. Absent: tenderness, pedal edema, joint swelling, calf tenderness - Neurological Exam Neurological exam: Present: alert, oriented X3, CN II-XII intact. Absent: motor sensory deficit ED Course Vital Signs 07/01/17 07/01/17 07/01/17 09:41 09:48 10:00 Temperature 98.1 F Pulse Rate 123 H 120 H Respiratory 24 29 H Rate Blood Pressure 186/89 181/89 O2 Sat by Pulse 93 91 93 Oximetry 07/01/17 07/01/17 07/01/17 10:15 10:30 10:42 Temperature Pulse Rate 120 H 120 H 118 H Respiratory 22 32 H Rate Blood Pressure 177/81 173/84 O2 Sat by Pulse 93 94 Oximetry 07/01/17 07/01/17 07/01/17 10:43 10:45 11:00 Temperature Pulse Rate 116 H 115 H Respiratory 24 30 H 34 H Rate Blood Pressure 174/81 174/83 O2 Sat by Pulse 96 95 95 Oximetry 07/01/17 07/01/17 07/01/17 11:15 11:30 11:45 Temperature Pulse Rate 115 H 114 H 116 H Respiratory 31 H 35 H 34 H Rate Blood Pressure 168/84 153/87 168/89 O2 Sat by Pulse 95 94 93 Oximetry 07/01/17 07/01/17 07/01/17 12:01 12:15 12:30 Temperature Pulse Rate 119 H 113 H 117 H Respiratory 26 H 30 H 32 H Rate Blood Pressure 193/91 164/86 182/90 O2 Sat by Pulse 91 94 94 Oximetry ED Medical Decision Making - Lab Data Result diagrams: 07/01/17 10:09 07/01/17 10:06 - EKG Data EKG shows normal: sinus rhythm Rate: tachycardia - EKG Data When compared to previous EKG there are: no significant change 07/01/17 13:57 Old right bundle branch block no acute ischemic changes appreciated - Radiology Data Radiology results: report reviewed - Medical Decision Making Patient given multiple nebulizers and steroids still with respiratory distress no evidence of pneumonia on x-ray. His white count is elevated from previous visits EKG is unchanged from previous unit admission for further evaluation of COPD exacerbation he was given antibiotics and cultures case will be discussed with Dr. Murphy for admission Critical care attestation.: If time is entered above; I have spent that time in minutes in the direct care of this critically ill patient, excluding procedure time. ED Disposition Clinical Impression: COPD exacerbation, Leukocytosis Disposition: DC-[id number] OP ADMIT IP TO THIS HOSP Is pt being admited?: Yes Condition: Stable Instructions: Chronic Obstructive Pulmonary Disease (ED) Referrals: PRIMARY CARE, [Primary Care Provider] - 3-5 Days Time of Disposition: 13:59
--- NOTE | 2017-07-01 10:29 | XRay Report ---
AP CHEST: HISTORY: Short of breath The lungs are severely hyperinflated consistent with advanced emphysema. No evidence for pneumonia, pleural effusion, mass or pneumothorax. Heart size is within normal limits. The bony structures are grossly intact. IMPRESSION: Advanced emphysema.
[2017-07-01 10:35] LABS: Hematocrit 37.4 % (35.5-45.6); Hemoglobin 12.5 gm/dl (11.8-15.2); Mean Corpuscular HGB Conc 34 % (32-34); Mean Corpuscular Hemoglobin 30 pg (28-32); Mean Corpuscular Volume 90 fl (84-94); Platelet Count 290 K/mm3 (140-440); Red Blood Count 4.16 M/mm3 (3.65-5.03); Red Cell Distribution Width 13.3 % (13.2-15.2)
[2017-07-01 10:45] LABS: BUN/Creatinine Ratio 33; Blood Urea Nitrogen 20 mg/dL (9-20); Calcium 9.4 mg/dL (8.4-10.2); Hemolysis Index 57
[2017-07-01 11:37] LABS: Total Cells Counted 100
[2017-07-01 11:38] LABS: Basophils % (Manual) 0 % (0.0-1.8); Eosinophils % (Manual) 0 % (0.0-4.3); RBC Morphology Normal
[2017-07-01] MEDS ORDERED: ROCEPHIN/NS 1 GM/50 ML 1 GM/50 ML BAG IV ONE (13:43)
[2017-07-01] MEDS ORDERED: NACL 0.9% 500 ML 500 ML IV ONE (13:43)
[2017-07-01] MEDS ORDERED: ZITHROMAX PO ONE (13:43)
--- NOTE | 2017-07-01 14:14 | History and Physical Report ---
History of Present Illness Chief complaint: Cant breathe History of present illness: 75 YO Male with COPD, Chronic Respiratory Failure on Home Oxygen, HTN, GERD, Malnutrition presents to ED for evaluation. Pt states that he has experienced shortness of breath, productive cough of clear sputum over the past 2 weeks, with worsening symptoms over the past 3 days. Pt has been using his nebulizer treatment without any significant improvement. Patient denies chest pain, palpitation, abdominal pain, hematochezia, dysuria, frequency, focal weakness, dysarthria, fever, chills, polydipsia, polyuria, hot or cold intolerance, skin rash, rhinorrhea, epistaxis, earache, tinnitus, blurry vision, eye discharge, anxiety, depression, or recent ill contacts. Pt seen and evaluated in ED and found to have COPD exacerbation, Sepsis, and Acute Hypercapnic Respiratory Failure. PT admitted to medical floor. Past History Past Medical History: COPD, GERD, hypertension Past Surgical History: appendectomy, cataract removal, hernia repair Social history: . denies: smoking, alcohol abuse, prescription drug abuse Family history: no significant family history (reviewed) Medications and Allergies Allergies Allergy/AdvReac Type Severity Reaction Status Date / Time No Known Allergies Allergy Verified 03/29/16 15:03 Home Medications Medication Instructions Recorded Confirmed Last Taken Type Ipratropium/Albuter (Nf) 2 puff IH QID 07/01/17 07/01/17 Unknown History [Combivent (Nf)] Ranitidine HCl [Zantac 150 MG TAB] 150 mg PO DAILY 07/01/17 07/01/17 Unknown History Active Meds: Active Medications Ceftriaxone Sodium 1 gm/ (Sodium Chloride) 20 mls @ 2 mls/min IV ONCE ONE Stop: 07/01/17 14:54 Review of Systems Constitutional: no weight loss, no weight gain, no fever, no chills Ears, nose, mouth and throat: no ear pain, no ear discharge, no tinnitis, no decreased hearing, no nose pain, no nasal congestion, no nasal discharge Cardiovascular: no chest pain, no orthopnea, no palpitations, no syncope, no lightheadedness Respiratory: cough with sputum, excessive sputum, shortness of breath, home oxygen Gastrointestinal: no nausea, no vomiting, no diarrhea, no constipation, no change in bowel habits Genitourinary Male: no hematuria, no flank pain, no discharge, no urinary frequency, no urinary hesitancy, no nocturia Rectal: no pain, no incontinence, no bleeding Musculoskeletal: no neck stiffness, no neck pain, no shooting arm pain, no arm numbness/tingling, no low back pain, no shooting leg pain Integumentary: no rash, no pruritis, no redness, no sores, no wounds, no jaundice Neurological: no head injury, no transient paralysis, no paralysis, no weakness , no parathesias, no numbness, no tingling, no seizures Psychiatric: no anxiety, no memory loss, no change in sleep habits, no sleep disturbances, no insomnia, no hypersomnia, no change in appetite Endocrine: no cold intolerance, no heat intolerance, no polyphagia, no excessive thirst, no polydipsia Hematologic/Lymphatic: no easy bruising, no easy bleeding, no lymphadenopathy, no lymphedema Allergic/Immunologic: no urticaria, no allergic rhinitis, no wheezing, no persistent infections, no anaphylaxis, no angioedema Exam - Constitutional Vitals: Temp Pulse Resp BP Pulse Ox 98.1 F 116 H 39 H 169/81 93 07/01/17 09:41 07/01/17 13:45 07/01/17 13:45 07/01/17 13:45 07/01/17 13:45 General appearance: Present: mild distress, cachectic - EENT Eyes: Present: PERRL, miosis ENT: hearing intact, clear oral mucosa - Neck Neck: Present: supple, normal ROM - Respiratory Respiratory effort: normal Respiratory: bilateral: diminished, rhonchi - Cardiovascular Heart Sounds: Present: S1 & S2. Absent: rub, click - Extremities Extremities: pulses symmetrical, No edema Peripheral Pulses: abnormal (capillary refill greater than 3.6 seconds) - Abdominal General gastrointestinal: Present: soft, non-tender, non-distended Male genitourinary: Present: normal - Integumentary Integumentary: Present: clear, dry, clammy, decreased turgor - Musculoskeletal Musculoskeletal: generalized weakness - Psychiatric Psychiatric: appropriate mood/affect, cooperative - Neurologic Neurologic: CNII-XII intact, moves all extremities Results - Labs CBC & Chem 7: 07/01/17 10:09 07/01/17 10:06 Labs: Abnormal lab results 07/01/17 07/01/17 Range/Units 10:06 10:09 WBC 20.8 H (4.5-11.0) K/mm3 Seg Neuts % (Manual) 89.0 H (40.0-70.0) % Lymphocytes % (Manual) 6.0 L (13.4-35.0) % Seg Neutrophils # Man 18.5 H (1.8-7.7) K/mm3 Monocytes # (Manual) 1.0 H (0.0-0.8) K/mm3 Chloride 94.1 L (98-107) mmol/L Creatinine 0.6 L (0.8-1.5) mg/dL Glucose 193 H (75-100) mg/dL Assessment and Plan - Patient Problems (1) Sepsis Current Visit: Yes Status: Acute Qualifiers: Sepsis type: sepsis due to unspecified organism Qualified Code(s): A41.9 - Sepsis, unspecified organism Plan to address problem: IV abx, IVF resuscitation, blood cultures, urinalysis, chest x ray, monitor uop q shift, serial lactic acid levels, (2) Acute hypercapnic respiratory failure Current Visit: Yes Status: Acute Plan to address problem: supplemental oxygen, nebulizer therpay, ABG, NIPPV as clinically indicated, pulse oximetry (3) COPD exacerbation Current Visit: No Status: Acute Plan to address problem: IV abx, IV steroids, nebulizer therapy, supplemental oxygen, Chest X ray (4) DVT prophylaxis Current Visit: Yes Status: Acute
[2017-07-01] MEDS ORDERED: cefTRIAXone 1 GM in NACL 0.9% 20 ML IV ONE (14:45)
[2017-07-01] MEDS ORDERED: PROVENTIL IH PRN (15:29)
[2017-07-01] MEDS ORDERED: TYLENOL PO PRN (15:29)
[2017-07-01] MEDS ORDERED: ZOFRAN IV PRN (15:29)
[2017-07-01] MEDS ORDERED: SODIUM CHLORIDE FLUSH SYRINGE 10 ML IV PRN (15:29)
[2017-07-01] MEDS ORDERED: VANCOMYCIN VIAL IV ONE (15:32)
[2017-07-01] MEDS ORDERED: NACL 0.9% 1000 ML IV ONE (15:32)
[2017-07-01] MEDS ORDERED: FLEXERIL PO PRN (15:35)
[2017-07-01] MEDS ORDERED: VANCOMYCIN PHARMACY TO DOSE IV SCH (16:00)
[2017-07-01] MEDS ORDERED: PROVENTIL IH ONE (17:30)
[2017-07-01] MEDS: ZOSYN/NS 4.5GM/100ML 4.5 GM/100 ML VIAL IV SCH ×2 (18:17→23:58)
[2017-07-01] MEDS: VANCOMYCIN 1,250 MG in NACL 0.9% 250ML 250 ML IV SCH (18:45)
[2017-07-02] MEDS: SODIUM CHLORIDE FLUSH SYRINGE 10 ML IV SCH ×3 (00:01→22:30)
[2017-07-02] MEDS: ZOSYN/NS 4.5GM/100ML 4.5 GM/100 ML VIAL IV SCH ×2 (05:50→13:10)
[2017-07-02] MEDS ORDERED: D50W (25GM) Syringe IV PRN (09:00)
[2017-07-02] MEDS: VITAMIN D3 PO SCH (09:55)
[2017-07-02] MEDS: PROTONIX PO SCH (09:55)
[2017-07-02] MEDS ORDERED: ERGOCALCIFEROL 400 UNIT PO SCH (10:00)
--- NOTE | 2017-07-02 10:49 | Progress Note ---
Assessment and Plan Assessment and plan: Sepsis, probably sec to acute bronchitis versus early PNA -cont iv antibiotics -blood and urine cultures pending Acute respiratory failure with hypoxia and hypercapnia -off BIPAP -cont 02 supplementation as needed and neb tx Acute COPD exacerbation -improving -cont iv steroid, neb tx and iv antibiotics Hyperglycemia -likely sec to steroid use -started on SSI and lantus HNT -stable Disp: d/c pt when medically stable History Interval history: Patient has no new complaints. His sob has improved, he denies chest pain. Hospitalist Physical - Constitutional Vitals: Temp Pulse Resp BP Pulse Ox 97.6 F 99 H 22 122/58 99 07/02/17 06:27 07/02/17 10:00 07/02/17 06:27 07/02/17 06:27 07/02/17 06:27 General appearance: Present: no acute distress - EENT Eyes: Present: PERRL, EOM intact ENT: hearing intact, clear oral mucosa - Neck Neck: Present: supple - Respiratory Respiratory effort: normal Respiratory: bilateral: diminished - Cardiovascular Rhythm: regular Heart Sounds: Present: S1 & S2 - Extremities Extremities: No edema - Abdominal General gastrointestinal: soft, non-tender, normal bowel sounds - Integumentary Integumentary: Present: warm, dry - Neurologic Neurologic: CNII-XII intact Results - Labs CBC & Chem 7: 07/01/17 10:09 07/01/17 10:06 Labs: Laboratory Last Values WBC 20.8 K/mm3 (4.5-11.0) H 07/01/17 10:09 RBC 4.16 M/mm3 (3.65-5.03) 07/01/17 10:09 Hgb 12.5 gm/dl (11.8-15.2) 07/01/17 10:09 Hct 37.4 % (35.5-45.6) 07/01/17 10:09 MCV 90 fl (84-94) 07/01/17 10:09 MCH 30 pg (28-32) 07/01/17 10:09 MCHC 34 % (32-34) 07/01/17 10:09 RDW 13.3 % (13.2-15.2) 07/01/17 10:09 Plt Count 290 K/mm3 (140-440) 07/01/17 10:09 Add Manual Diff Complete 07/01/17 10:09 Total Counted 100 07/01/17 10:09 Seg Neuts % (Manual) 89.0 % (40.0-70.0) H 07/01/17 10:09 Band Neutrophils % 0 % 07/01/17 10:09 Lymphocytes % (Manual) 6.0 % (13.4-35.0) L 07/01/17 10:09 Reactive Lymphs % (Man) 0 % 07/01/17 10:09 Monocytes % (Manual) 5.0 % (0.0-7.3) 07/01/17 10:09 Eosinophils % (Manual) 0 % (0.0-4.3) 07/01/17 10:09 Basophils % (Manual) 0 % (0.0-1.8) 07/01/17 10:09 Metamyelocytes % 0 % 07/01/17 10:09 Myelocytes % 0 % 07/01/17 10:09 Promyelocytes % 0 % 07/01/17 10:09 Blast Cells % 0 % 07/01/17 10:09 Nucleated RBC % Not Reportable 07/01/17 10:09 Seg Neutrophils # Man 18.5 K/mm3 (1.8-7.7) H 07/01/17 10:09 Band Neutrophils # 0.0 K/mm3 07/01/17 10:09 Lymphocytes # (Manual) 1.2 K/mm3 (1.2-5.4) 07/01/17 10:09 Abs React Lymphs (Man) 0.0 K/mm3 07/01/17 10:09 Monocytes # (Manual) 1.0 K/mm3 (0.0-0.8) H 07/01/17 10:09 Eosinophils # (Manual) 0.0 K/mm3 (0.0-0.4) 07/01/17 10:09 Basophils # (Manual) 0.0 K/mm3 (0.0-0.1) 07/01/17 10:09 Metamyelocytes # 0.0 K/mm3 07/01/17 10:09 Myelocytes # 0.0 K/mm3 07/01/17 10:09 Promyelocytes # 0.0 K/mm3 07/01/17 10:09 Blast Cells # 0.0 K/mm3 07/01/17 10:09 WBC Morphology Not Reportable 07/01/17 10:09 Hypersegmented Neuts Not Reportable 07/01/17 10:09 Hyposegmented Neuts Not Reportable 07/01/17 10:09 Hypogranular Neuts Not Reportable 07/01/17 10:09 Smudge Cells Not Reportable 07/01/17 10:09 Toxic Granulation Not Reportable 07/01/17 10:09 Toxic Vacuolation Not Reportable 07/01/17 10:09 Dohle Bodies Not Reportable 07/01/17 10:09 Pelger-Huet Anomaly Not Reportable 07/01/17 10:09 Sahra Rods Not Reportable 07/01/17 10:09 Platelet Estimate Not Reportable 07/01/17 10:09 Clumped Platelets Not Reportable 07/01/17 10:09 Plt Clumps, EDTA Not Reportable 07/01/17 10:09 Large Platelets Not Reportable 07/01/17 10:09 Giant Platelets Not Reportable 07/01/17 10:09 Platelet Satelliting Not Reportable 07/01/17 10:09 Plt Morphology Comment Not Reportable 07/01/17 10:09 RBC Morphology Normal 07/01/17 10:09 Dimorphic RBCs Not Reportable 07/01/17 10:09 Polychromasia Not Reportable 07/01/17 10:09 Hypochromasia Not Reportable 07/01/17 10:09 Poikilocytosis Not Reportable 07/01/17 10:09 Anisocytosis Not Reportable 07/01/17 10:09 Microcytosis Not Reportable 07/01/17 10:09 Macrocytosis Not Reportable 07/01/17 10:09 Spherocytes Not Reportable 07/01/17 10:09 Pappenheimer Bodies Not Reportable 07/01/17 10:09 Sickle Cells Not Reportable 07/01/17 10:09 Target Cells Not Reportable 07/01/17 10:09 Tear Drop Cells Not Reportable 07/01/17 10:09 Ovalocytes Not Reportable 07/01/17 10:09 Helmet Cells Not Reportable 07/01/17 10:09 [place] Bodies Not Reportable 07/01/17 10:09 Cullen Rings Not Reportable 07/01/17 10:09 [place] Cells Not Reportable 07/01/17 10:09 Bite Cells Not Reportable 07/01/17 10:09 Crenated Cell Not Reportable 07/01/17 10:09 Elliptocytes Not Reportable 07/01/17 10:09 Acanthocytes (Spur) Not Reportable 07/01/17 10:09 Rouleaux Not Reportable 07/01/17 10:09 Hemoglobin C Crystals Not Reportable 07/01/17 10:09 Schistocytes Not Reportable 07/01/17 10:09 Malaria parasites Not Reportable 07/01/17 10:09 Chaitanya Bodies Not Reportable 07/01/17 10:09 Hem Pathologist Commnt No 07/01/17 10:09 POC ABG pH 7.416 (7.35-7.45) 07/01/17 14:14 POC ABG pCO2 57.9 (35-45) H 07/01/17 14:14 POC ABG pO2 77 (80-105) L 07/01/17 14:14 POC ABG HCO3 37.3 07/01/17 14:14 POC ABG Total CO2 39 07/01/17 14:14 POC ABG O2 Sat 95 07/01/17 14:14 POC ABG Base Excess 13 07/01/17 14:14 FiO2 32 % 07/01/17 14:14 Sodium 141 mmol/L (137-145) 07/01/17 10:06 Potassium 4.9 mmol/L (3.6-5.0) 07/01/17 10:06 Chloride 94.1 mmol/L (98-107) L 07/01/17 10:06 Carbon Dioxide 30 mmol/L (22-30) 07/01/17 10:06 Anion Gap 22 mmol/L 07/01/17 10:06 BUN 20 mg/dL (9-20) 07/01/17 10:06 Creatinine 0.6 mg/dL (0.8-1.5) L 07/01/17 10:06 Estimated GFR > 60 ml/min 07/01/17 10:06 BUN/Creatinine Ratio 33 % 07/01/17 10:06 Glucose 193 mg/dL (75-100) H 07/01/17 10:06 POC Glucose 319 (70-105) H 07/01/17 22:15 Lactic Acid 2.00 mmol/L (0.7-2.0) 04/20/18 09:21 Calcium 9.4 mg/dL (8.4-10.2) 07/01/17 10:06 Troponin T < 0.010 ng/mL (0.00-0.029) 07/01/17 10:06
[2017-07-02] MEDS: HumaLOG SUB-Q SCH ×3 (11:15→22:40)
[2017-07-02 11:46] LABS: Bilirubin,Urine NEG (Negative); Blood,Urine NEG (Negative); Color,Urine Yellow (Yellow); Urobilinogen,Urine < 2.0 mg/dL (<2.0)
[2017-07-02] MEDS: PROVENTIL IH SCH ×3 (12:00→19:46)
[2017-07-02] MEDS: VANCOMYCIN 1,250 MG in NACL 0.9% 250ML 250 ML IV SCH (16:45)
[2017-07-02] MEDS: LANTUS SUB-Q SCH (22:35)
[2017-07-03] MEDS: PROVENTIL IH SCH (00:47)
[2017-07-03] MEDS: DUONEB *Not for PRN Use IH SCH ×4 (02:16→19:14)
[2017-07-03] MEDS ORDERED: PROVENTIL IH PRN (03:25)
[2017-07-03 05:43] LABS: BUN/Creatinine Ratio 50; Blood Urea Nitrogen 25 mg/dL (9-20); Calcium 8.3 mg/dL (8.4-10.2); Hemolysis Index 14
[2017-07-03] MEDS: ZOSYN/NS 4.5GM/100ML 4.5 GM/100 ML VIAL IV SCH ×4 (05:51→21:46)
[2017-07-03 06:03] LABS: Hematocrit 33.1 % (35.5-45.6); Hemoglobin 10.8 gm/dl (11.8-15.2); Mean Corpuscular HGB Conc 33 % (32-34); Mean Corpuscular Hemoglobin 30 pg (28-32); Mean Corpuscular Volume 92 fl (84-94); Platelet Count 275 K/mm3 (140-440); Red Cell Distribution Width 14.1 % (13.2-15.2)
[2017-07-03 07:38] LABS: Band Neutrophils # (Manual) 1.4 K/mm3; Basophils % (Manual) 0 % (0.0-1.8); Eosinophils % (Manual) 0 % (0.0-4.3); Total Cells Counted 100
[2017-07-03 07:41] LABS: Anisocytosis Few
[2017-07-03] MEDS: NACL 0.9% 1000 ML 1,000 ML IV SCH ×2 (08:53→17:00)
[2017-07-03] MEDS: HumaLOG SUB-Q SCH ×4 (08:54→23:52)
[2017-07-03] MEDS: VITAMIN D3 PO SCH (09:06)
[2017-07-03] MEDS: PROTONIX PO SCH (09:06)
--- NOTE | 2017-07-03 12:01 | Progress Note ---
Assessment and Plan Assessment and plan: Sepsis, probably sec to acute bronchitis versus early PNA -cont iv antibiotics -blood and urine cultures pending Acute respiratory failure with hypoxia and hypercapnia -off BIPAP -cont 02 supplementation as needed and neb tx Acute COPD exacerbation -improving -cont iv steroid, neb tx and iv antibiotics Hyperglycemia -likely sec to steroid use -controlled on SSI and lantus HTN -stable Disp: for possible d/c in am if medically stable History Interval history: Patient reported feeling better today. He still has some shortness of breath with mild exertion Hospitalist Physical - Constitutional Vitals: Temp Pulse Resp BP Pulse Ox 98.2 F 96 H 18 110/51 94 07/03/17 07:07 07/03/17 07:32 07/03/17 07:32 07/03/17 07:07 07/03/17 07:22 General appearance: Present: no acute distress - EENT Eyes: Present: PERRL, EOM intact ENT: hearing intact - Neck Neck: Present: supple - Respiratory Respiratory effort: normal Respiratory: bilateral: diminished - Cardiovascular Rhythm: regular Heart Sounds: Present: S1 & S2 - Extremities Extremities: No edema - Abdominal General gastrointestinal: soft, non-tender, normal bowel sounds - Neurologic Neurologic: CNII-XII intact Results - Labs CBC & Chem 7: 07/03/17 05:07 07/03/17 05:07 Labs: Laboratory Last Values WBC 14.4 K/mm3 (4.5-11.0) H 07/03/17 05:07 RBC 3.60 M/mm3 (3.65-5.03) L 07/03/17 05:07 Hgb 10.8 gm/dl (11.8-15.2) L 07/03/17 05:07 Hct 33.1 % (35.5-45.6) L 07/03/17 05:07 MCV 92 fl (84-94) 07/03/17 05:07 MCH 30 pg (28-32) 07/03/17 05:07 MCHC 33 % (32-34) 07/03/17 05:07 RDW 14.1 % (13.2-15.2) 07/03/17 05:07 Plt Count 275 K/mm3 (140-440) 07/03/17 05:07 Add Manual Diff Complete 07/03/17 05:07 Total Counted 100 07/03/17 05:07 Seg Neutrophils % Perfumer 07/03/17 05:07 Seg Neuts % (Manual) 81.0 % (40.0-70.0) H 07/03/17 05:07 Band Neutrophils % 10.0 % 07/03/17 05:07 Lymphocytes % (Manual) 6.0 % (13.4-35.0) L 07/03/17 05:07 Reactive Lymphs % (Man) 0 % 07/03/17 05:07 Monocytes % (Manual) 3.0 % (0.0-7.3) 07/03/17 05:07 Eosinophils % (Manual) 0 % (0.0-4.3) 07/03/17 05:07 Basophils % (Manual) 0 % (0.0-1.8) 07/03/17 05:07 Metamyelocytes % 0 % 07/03/17 05:07 Myelocytes % 0 % 07/03/17 05:07 Promyelocytes % 0 % 07/03/17 05:07 Blast Cells % 0 % 07/03/17 05:07 Nucleated RBC % Not Reportable 07/03/17 05:07 Seg Neutrophils # Man 11.7 K/mm3 (1.8-7.7) H 07/03/17 05:07 Band Neutrophils # 1.4 K/mm3 07/03/17 05:07 Lymphocytes # (Manual) 0.9 K/mm3 (1.2-5.4) L 07/03/17 05:07 Abs React Lymphs (Man) 0.0 K/mm3 07/03/17 05:07 Monocytes # (Manual) 0.4 K/mm3 (0.0-0.8) 07/03/17 05:07 Eosinophils # (Manual) 0.0 K/mm3 (0.0-0.4) 07/03/17 05:07 Basophils # (Manual) 0.0 K/mm3 (0.0-0.1) 07/03/17 05:07 Metamyelocytes # 0.0 K/mm3 07/03/17 05:07 Myelocytes # 0.0 K/mm3 07/03/17 05:07 Promyelocytes # 0.0 K/mm3 07/03/17 05:07 Blast Cells # 0.0 K/mm3 07/03/17 05:07 WBC Morphology Not Reportable 07/03/17 05:07 Hypersegmented Neuts Not Reportable 07/03/17 05:07 Hyposegmented Neuts Not Reportable 07/03/17 05:07 Hypogranular Neuts Not Reportable 07/03/17 05:07 Smudge Cells Not Reportable 07/03/17 05:07 Toxic Granulation Not Reportable 07/03/17 05:07 Toxic Vacuolation Not Reportable 07/03/17 05:07 Dohle Bodies Not Reportable 07/03/17 05:07 Pelger-Huet Anomaly Not Reportable 07/03/17 05:07 Sahra Rods Not Reportable 07/03/17 05:07 Platelet Estimate Appears normal 07/03/17 05:07 Clumped Platelets Not Reportable 07/03/17 05:07 Plt Clumps, EDTA Not Reportable 07/03/17 05:07 Large Platelets Not Reportable 07/03/17 05:07 Giant Platelets Not Reportable 07/03/17 05:07 Platelet Satelliting Not Reportable 07/03/17 05:07 Plt Morphology Comment Not Reportable 07/03/17 05:07 RBC Morphology Not Reportable 07/03/17 05:07 Dimorphic RBCs Not Reportable 07/03/17 05:07 Polychromasia Not Reportable 07/03/17 05:07 Hypochromasia Not Reportable 07/03/17 05:07 Poikilocytosis Not Reportable 07/03/17 05:07 Anisocytosis Few 07/03/17 05:07 Microcytosis Not Reportable 07/03/17 05:07 Macrocytosis Not Reportable 07/03/17 05:07 Spherocytes Not Reportable 07/03/17 05:07 Pappenheimer Bodies Not Reportable 07/03/17 05:07 Sickle Cells Not Reportable 07/03/17 05:07 Target Cells Not Reportable 07/03/17 05:07 Tear Drop Cells Not Reportable 07/03/17 05:07 Ovalocytes Not Reportable 07/03/17 05:07 Helmet Cells Not Reportable 07/03/17 05:07 [place] Bodies Not Reportable 07/03/17 05:07 [place] Rings Not Reportable 07/03/17 05:07 [place] Cells Not Reportable 07/03/17 05:07 Bite Cells Not Reportable 07/03/17 05:07 Crenated Cell Not Reportable 07/03/17 05:07 Elliptocytes Not Reportable 07/03/17 05:07 Acanthocytes (Spur) Not Reportable 07/03/17 05:07 Rouleaux Not Reportable 07/03/17 05:07 Hemoglobin C Crystals Not Reportable 07/03/17 05:07 Schistocytes Not Reportable 07/03/17 05:07 Malaria parasites Not Reportable 07/03/17 05:07 Chaitanya Bodies Not Reportable 07/03/17 05:07 Hem Pathologist Commnt No 07/03/17 05:07 POC ABG pH 7.416 (7.35-7.45) 07/01/17 14:14 POC ABG pCO2 57.9 (35-45) H 07/01/17 14:14 POC ABG pO2 77 (80-105) L 07/01/17 14:14 POC ABG HCO3 37.3 07/01/17 14:14 POC ABG Total CO2 39 07/01/17 14:14 POC ABG O2 Sat 95 07/01/17 14:14 POC ABG Base Excess 13 07/01/17 14:14 FiO2 32 % 07/01/17 14:14 Sodium 144 mmol/L (137-145) 07/03/17 05:07 Potassium 3.9 mmol/L (3.6-5.0) D 07/03/17 05:07 Chloride 100.6 mmol/L (98-107) 07/03/17 05:07 Carbon Dioxide 33 mmol/L (22-30) H 07/03/17 05:07 Anion Gap 14 mmol/L 07/03/17 05:07 BUN 25 mg/dL (9-20) H 07/03/17 05:07 Creatinine 0.5 mg/dL (0.8-1.5) L 07/03/17 05:07 Estimated GFR > 60 ml/min 07/03/17 05:07 BUN/Creatinine Ratio 50 % 07/03/17 05:07 Glucose 123 mg/dL (75-100) H 07/03/17 05:07 POC Glucose 157 (70-105) H 07/03/17 07:48 Lactic Acid 1.80 mmol/L (0.7-2.0) 07/02/17 10:27 Calcium 8.3 mg/dL (8.4-10.2) L 07/03/17 05:07 Troponin T < 0.010 ng/mL (0.00-0.029) 07/01/17 10:06 Urine Color Yellow (Yellow) 07/02/17 08:57 Urine Turbidity Clear (Clear) 07/02/17 08:57 Urine pH 5.0 (5.0-7.0) 07/02/17 08:57 Ur Specific [place] 1.032 (1.003-1.030) H 07/02/17 08:57 Urine Protein 100 mg/dl mg/dL (Negative) 07/02/17 08:57 Urine Glucose (UA) 150 mg/dL (Negative) 07/02/17 08:57 Urine Ketones Neg mg/dL (Negative) 07/02/17 08:57 Urine Blood Neg (Negative) 07/02/17 08:57 Urine Nitrite Neg (Negative) 07/02/17 08:57 Urine Bilirubin Neg (Negative) 07/02/17 08:57 Urine Urobilinogen < 2.0 mg/dL (<2.0) 07/02/17 08:57 Ur Leukocyte Esterase Neg (Negative) 07/02/17 08:57 Urine WBC (Auto) 5.0 /HPF (0.0-6.0) 07/02/17 08:57 Urine RBC (Auto) 2.0 /HPF (0.0-6.0) 07/02/17 08:57 U Epithel Cells (Auto) 1.0 /HPF (0-13.0) 07/02/17 08:57 Urine Yeast (Budding) Few /HPF 07/02/17 08:57
[2017-07-03] MEDS: SODIUM CHLORIDE FLUSH SYRINGE 10 ML IV SCH ×2 (14:01→21:48)
[2017-07-03] MEDS: VANCOMYCIN 1,250 MG in NACL 0.9% 250ML 250 ML IV SCH (16:55)
[2017-07-03] MEDS: LANTUS SUB-Q SCH (21:46)
[2017-07-04] MEDS: DUONEB *Not for PRN Use IH SCH ×5 (02:47→19:54)
[2017-07-04] MEDS: ZOSYN/NS 4.5GM/100ML 4.5 GM/100 ML VIAL IV SCH ×3 (05:27→21:09)
[2017-07-04] MEDS: NACL 0.9% 1000 ML 1,000 ML IV SCH ×2 (05:30→21:09)
[2017-07-04] MEDS: HumaLOG SUB-Q SCH ×4 (08:30→22:45)
[2017-07-04] MEDS: VITAMIN D3 PO SCH (10:01)
[2017-07-04] MEDS: PROTONIX PO SCH (10:01)
[2017-07-04] MEDS: SODIUM CHLORIDE FLUSH SYRINGE 10 ML IV SCH ×2 (10:02→21:10)
--- NOTE | 2017-07-04 13:45 | Progress Note ---
Assessment and Plan Assessment and plan: Sepsis, probably sec to acute bronchitis versus early PNA -cont iv antibiotics, wbc level trended down -blood and urine cultures neg so far Acute respiratory failure with hypoxia and hypercapnia -cont BIPAP prn -cont 02 supplementation as needed and neb tx Acute COPD exacerbation -improved -cont iv steroid, neb tx and iv antibiotics Hyperglycemia -probably sec to steroid use -controlled on SSI and lantus -will check HBA1C level HTN -stable Disp: Due to change in pt's respiratory status, will hold discharge for today and monitor him for another 24-48hours. History Interval history: Patient was seen this morning. He was noted to be markedly dyspneic. Patient was given breathing treatment with little improvement Hospitalist Physical - Constitutional Vitals: Temp Pulse Resp BP Pulse Ox 97.8 F 120 H 26 H 155/78 96 07/04/17 07:11 07/04/17 12:55 07/04/17 12:55 07/04/17 07:11 07/04/17 07:28 General appearance: Present: mild distress - EENT Eyes: Present: PERRL, EOM intact ENT: hearing intact - Neck Neck: Present: supple - Respiratory Respiratory effort: normal Respiratory: bilateral: diminished - Cardiovascular Rhythm: other (tachycardia with regular rhythm) Heart Sounds: Present: S1 & S2 - Extremities Extremities: No edema - Abdominal General gastrointestinal: soft, non-tender, normal bowel sounds - Neurologic Neurologic: CNII-XII intact Results - Labs CBC & Chem 7: 07/03/17 05:07 07/03/17 05:07 Labs: Laboratory Last Values WBC 14.4 K/mm3 (4.5-11.0) H 07/03/17 05:07 RBC 3.60 M/mm3 (3.65-5.03) L 07/03/17 05:07 Hgb 10.8 gm/dl (11.8-15.2) L 07/03/17 05:07 Hct 33.1 % (35.5-45.6) L 07/03/17 05:07 MCV 92 fl (84-94) 07/03/17 05:07 MCH 30 pg (28-32) 07/03/17 05:07 MCHC 33 % (32-34) 07/03/17 05:07 RDW 14.1 % (13.2-15.2) 07/03/17 05:07 Plt Count 275 K/mm3 (140-440) 07/03/17 05:07 Add Manual Diff Complete 07/03/17 05:07 Total Counted 100 07/03/17 05:07 Seg Neutrophils % [employer] 07/03/17 05:07 Seg Neuts % (Manual) 81.0 % (40.0-70.0) H 07/03/17 05:07 Band Neutrophils % 10.0 % 07/03/17 05:07 Lymphocytes % (Manual) 6.0 % (13.4-35.0) L 07/03/17 05:07 Reactive Lymphs % (Man) 0 % 07/03/17 05:07 Monocytes % (Manual) 3.0 % (0.0-7.3) 07/03/17 05:07 Eosinophils % (Manual) 0 % (0.0-4.3) 07/03/17 05:07 Basophils % (Manual) 0 % (0.0-1.8) 07/03/17 05:07 Metamyelocytes % 0 % 07/03/17 05:07 Myelocytes % 0 % 07/03/17 05:07 Promyelocytes % 0 % 07/03/17 05:07 Blast Cells % 0 % 07/03/17 05:07 Nucleated RBC % Not Reportable 07/03/17 05:07 Seg Neutrophils # Man 11.7 K/mm3 (1.8-7.7) H 07/03/17 05:07 Band Neutrophils # 1.4 K/mm3 07/03/17 05:07 Lymphocytes # (Manual) 0.9 K/mm3 (1.2-5.4) L 07/03/17 05:07 Abs React Lymphs (Man) 0.0 K/mm3 07/03/17 05:07 Monocytes # (Manual) 0.4 K/mm3 (0.0-0.8) 07/03/17 05:07 Eosinophils # (Manual) 0.0 K/mm3 (0.0-0.4) 07/03/17 05:07 Basophils # (Manual) 0.0 K/mm3 (0.0-0.1) 07/03/17 05:07 Metamyelocytes # 0.0 K/mm3 07/03/17 05:07 Myelocytes # 0.0 K/mm3 07/03/17 05:07 Promyelocytes # 0.0 K/mm3 07/03/17 05:07 Blast Cells # 0.0 K/mm3 07/03/17 05:07 WBC Morphology Not Reportable 07/03/17 05:07 Hypersegmented Neuts Not Reportable 07/03/17 05:07 Hyposegmented Neuts Not Reportable 07/03/17 05:07 Hypogranular Neuts Not Reportable 07/03/17 05:07 Smudge Cells Not Reportable 07/03/17 05:07 Toxic Granulation Not Reportable 07/03/17 05:07 Toxic Vacuolation Not Reportable 07/03/17 05:07 Dohle Bodies Not Reportable 07/03/17 05:07 Pelger-Huet Anomaly Not Reportable 07/03/17 05:07 Sahra Rods Not Reportable 07/03/17 05:07 Platelet Estimate Appears normal 07/03/17 05:07 Clumped Platelets Not Reportable 07/03/17 05:07 Plt Clumps, EDTA Not Reportable 07/03/17 05:07 Large Platelets Not Reportable 07/03/17 05:07 Giant Platelets Not Reportable 07/03/17 05:07 Platelet Satelliting Not Reportable 07/03/17 05:07 Plt Morphology Comment Not Reportable 07/03/17 05:07 RBC Morphology Not Reportable 07/03/17 05:07 Dimorphic RBCs Not Reportable 07/03/17 05:07 Polychromasia Not Reportable 07/03/17 05:07 Hypochromasia Not Reportable 07/03/17 05:07 Poikilocytosis Not Reportable 07/03/17 05:07 Anisocytosis Few 07/03/17 05:07 Microcytosis Not Reportable 07/03/17 05:07 Macrocytosis Not Reportable 07/03/17 05:07 Spherocytes Not Reportable 07/03/17 05:07 Pappenheimer Bodies Not Reportable 07/03/17 05:07 Sickle Cells Not Reportable 07/03/17 05:07 Target Cells Not Reportable 07/03/17 05:07 Tear Drop Cells Not Reportable 07/03/17 05:07 Ovalocytes Not Reportable 07/03/17 05:07 Helmet Cells Not Reportable 07/03/17 05:07 [place] Bodies Not Reportable 07/03/17 05:07 [place] Rings Not Reportable 07/03/17 05:07 [place] Cells Not Reportable 07/03/17 05:07 Bite Cells Not Reportable 07/03/17 05:07 Crenated Cell Not Reportable 07/03/17 05:07 Elliptocytes Not Reportable 07/03/17 05:07 Acanthocytes (Spur) Not Reportable 07/03/17 05:07 Rouleaux Not Reportable 07/03/17 05:07 Hemoglobin C Crystals Not Reportable 07/03/17 05:07 Schistocytes Not Reportable 07/03/17 05:07 Malaria parasites Not Reportable 07/03/17 05:07 Chaitanya Bodies Not Reportable 07/03/17 05:07 Hem Pathologist Commnt No 07/03/17 05:07 POC ABG pH 7.416 (7.35-7.45) 07/01/17 14:14 POC ABG pCO2 57.9 (35-45) H 07/01/17 14:14 POC ABG pO2 77 (80-105) L 07/01/17 14:14 POC ABG HCO3 37.3 07/01/17 14:14 POC ABG Total CO2 39 07/01/17 14:14 POC ABG O2 Sat 95 07/01/17 14:14 POC ABG Base Excess 13 07/01/17 14:14 FiO2 32 % 07/01/17 14:14 Sodium 144 mmol/L (137-145) 07/03/17 05:07 Potassium 3.9 mmol/L (3.6-5.0) D 07/03/17 05:07 Chloride 100.6 mmol/L (98-107) 07/03/17 05:07 Carbon Dioxide 33 mmol/L (22-30) H 07/03/17 05:07 Anion Gap 14 mmol/L 07/03/17 05:07 BUN 25 mg/dL (9-20) H 07/03/17 05:07 Creatinine 0.5 mg/dL (0.8-1.5) L 07/03/17 05:07 Estimated GFR > 60 ml/min 07/03/17 05:07 BUN/Creatinine Ratio 50 % 07/03/17 05:07 Glucose 123 mg/dL (75-100) H 07/03/17 05:07 POC Glucose 188 (70-105) H 07/04/17 11:36 Lactic Acid 1.80 mmol/L (0.7-2.0) 07/02/17 10:27 Calcium 8.3 mg/dL (8.4-10.2) L 07/03/17 05:07 Troponin T < 0.010 ng/mL (0.00-0.029) 07/01/17 10:06 Urine Color Yellow (Yellow) 07/02/17 08:57 Urine Turbidity Clear (Clear) 07/02/17 08:57 Urine pH 5.0 (5.0-7.0) 07/02/17 08:57 Ur Specific [place] 1.032 (1.003-1.030) H 07/02/17 08:57 Urine Protein 100 mg/dl mg/dL (Negative) 07/02/17 08:57 Urine Glucose (UA) 150 mg/dL (Negative) 07/02/17 08:57 Urine Ketones Neg mg/dL (Negative) 07/02/17 08:57 Urine Blood Neg (Negative) 07/02/17 08:57 Urine Nitrite Neg (Negative) 07/02/17 08:57 Urine Bilirubin Neg (Negative) 07/02/17 08:57 Urine Urobilinogen < 2.0 mg/dL (<2.0) 07/02/17 08:57 Ur Leukocyte Esterase Neg (Negative) 07/02/17 08:57 Urine WBC (Auto) 5.0 /HPF (0.0-6.0) 07/02/17 08:57 Urine RBC (Auto) 2.0 /HPF (0.0-6.0) 07/02/17 08:57 U Epithel Cells (Auto) 1.0 /HPF (0-13.0) 07/02/17 08:57 Urine Yeast (Budding) Few /HPF 07/02/17 08:57
[2017-07-04] MEDS ORDERED: APRESOLINE IV PRN (13:48)
[2017-07-04] MEDS: VANCOMYCIN 1,250 MG in NACL 0.9% 250ML 250 ML IV SCH (17:35)
[2017-07-04] MEDS: LANTUS SUB-Q SCH (21:10)
[2017-07-05] MEDS: ZOSYN/NS 4.5GM/100ML 4.5 GM/100 ML VIAL IV SCH ×3 (05:32→21:18)
[2017-07-05] MEDS: NACL 0.9% 1000 ML 1,000 ML IV SCH ×2 (05:38→16:46)
[2017-07-05] MEDS: HumaLOG SUB-Q SCH ×4 (07:50→22:34)
[2017-07-05] MEDS: DUONEB *Not for PRN Use IH SCH ×4 (08:57→19:14)
[2017-07-05] MEDS ORDERED: XOPENEX IH PRN (10:07)
[2017-07-05] MEDS: PROTONIX PO SCH (10:26)
[2017-07-05] MEDS: VITAMIN D3 PO SCH (10:27)
[2017-07-05] MEDS: SODIUM CHLORIDE FLUSH SYRINGE 10 ML IV SCH ×2 (10:27→21:28)
--- NOTE | 2017-07-05 12:14 | Progress Note ---
Assessment and Plan Assessment and plan: Sepsis, probably sec to acute bronchitis versus early PNA -cont iv antibiotics, wbc level trended down -blood and urine cultures neg so far Acute respiratory failure with hypoxia and hypercapnia -cont BIPAP prn -cont 02 supplementation as needed and neb tx Acute COPD exacerbation -cont iv steroid, neb tx and iv antibiotics -due to the persistent tachypnea, will do further eval with chest CT scan -will consult pulmonology Hyperglycemia -probably sec to steroid use -controlled on SSI and lantus -HBA1C level: 5.9 HTN with sinus tachycardia -oral diltiazem started Disp: will d/c pt when medically stable History Interval history: Pt continues to be dyspneic with mild exertion. He denies chest pain. Hospitalist Physical - Constitutional Vitals: Temp Pulse Resp BP Pulse Ox 97.5 F L 117 H 20 135/74 98 07/05/17 07:17 07/05/17 10:00 07/05/17 07:17 07/05/17 07:17 07/05/17 09:00 General appearance: Present: mild distress - EENT Eyes: Present: PERRL, EOM intact ENT: hearing intact, clear oral mucosa - Neck Neck: Present: supple - Respiratory Respiratory effort: normal Respiratory: bilateral: diminished - Cardiovascular Heart Sounds: Present: S1 & S2 (tachycardia with regular rhythm) - Extremities Extremities: No edema - Abdominal General gastrointestinal: soft, non-tender, normal bowel sounds - Integumentary Integumentary: Present: warm, dry - Neurologic Neurologic: CNII-XII intact Results - Labs CBC & Chem 7: 07/03/17 05:07 07/03/17 05:07 Labs: Laboratory Last Values WBC 14.4 K/mm3 (4.5-11.0) H 07/03/17 05:07 RBC 3.60 M/mm3 (3.65-5.03) L 07/03/17 05:07 Hgb 10.8 gm/dl (11.8-15.2) L 07/03/17 05:07 Hct 33.1 % (35.5-45.6) L 07/03/17 05:07 MCV 92 fl (84-94) 07/03/17 05:07 MCH 30 pg (28-32) 07/03/17 05:07 MCHC 33 % (32-34) 07/03/17 05:07 RDW 14.1 % (13.2-15.2) 07/03/17 05:07 Plt Count 275 K/mm3 (140-440) 07/03/17 05:07 Add Manual Diff Complete 07/03/17 05:07 Total Counted 100 07/03/17 05:07 Seg Neutrophils % Hose Operator 07/03/17 05:07 Seg Neuts % (Manual) 81.0 % (40.0-70.0) H 07/03/17 05:07 Band Neutrophils % 10.0 % 07/03/17 05:07 Lymphocytes % (Manual) 6.0 % (13.4-35.0) L 07/03/17 05:07 Reactive Lymphs % (Man) 0 % 07/03/17 05:07 Monocytes % (Manual) 3.0 % (0.0-7.3) 07/03/17 05:07 Eosinophils % (Manual) 0 % (0.0-4.3) 07/03/17 05:07 Basophils % (Manual) 0 % (0.0-1.8) 07/03/17 05:07 Metamyelocytes % 0 % 07/03/17 05:07 Myelocytes % 0 % 07/03/17 05:07 Promyelocytes % 0 % 07/03/17 05:07 Blast Cells % 0 % 07/03/17 05:07 Nucleated RBC % Not Reportable 07/03/17 05:07 Seg Neutrophils # Man 11.7 K/mm3 (1.8-7.7) H 07/03/17 05:07 Band Neutrophils # 1.4 K/mm3 07/03/17 05:07 Lymphocytes # (Manual) 0.9 K/mm3 (1.2-5.4) L 07/03/17 05:07 Abs React Lymphs (Man) 0.0 K/mm3 07/03/17 05:07 Monocytes # (Manual) 0.4 K/mm3 (0.0-0.8) 07/03/17 05:07 Eosinophils # (Manual) 0.0 K/mm3 (0.0-0.4) 07/03/17 05:07 Basophils # (Manual) 0.0 K/mm3 (0.0-0.1) 07/03/17 05:07 Metamyelocytes # 0.0 K/mm3 07/03/17 05:07 Myelocytes # 0.0 K/mm3 07/03/17 05:07 Promyelocytes # 0.0 K/mm3 07/03/17 05:07 Blast Cells # 0.0 K/mm3 07/03/17 05:07 WBC Morphology Not Reportable 07/03/17 05:07 Hypersegmented Neuts Not Reportable 07/03/17 05:07 Hyposegmented Neuts Not Reportable 07/03/17 05:07 Hypogranular Neuts Not Reportable 07/03/17 05:07 Smudge Cells Not Reportable 07/03/17 05:07 Toxic Granulation Not Reportable 07/03/17 05:07 Toxic Vacuolation Not Reportable 07/03/17 05:07 Dohle Bodies Not Reportable 07/03/17 05:07 Pelger-Huet Anomaly Not Reportable 07/03/17 05:07 Sahra Rods Not Reportable 07/03/17 05:07 Platelet Estimate Appears normal 07/03/17 05:07 Clumped Platelets Not Reportable 07/03/17 05:07 Plt Clumps, EDTA Not Reportable 07/03/17 05:07 Large Platelets Not Reportable 07/03/17 05:07 Giant Platelets Not Reportable 07/03/17 05:07 Platelet Satelliting Not Reportable 07/03/17 05:07 Plt Morphology Comment Not Reportable 07/03/17 05:07 RBC Morphology Not Reportable 07/03/17 05:07 Dimorphic RBCs Not Reportable 07/03/17 05:07 Polychromasia Not Reportable 07/03/17 05:07 Hypochromasia Not Reportable 07/03/17 05:07 Poikilocytosis Not Reportable 07/03/17 05:07 Anisocytosis Few 07/03/17 05:07 Microcytosis Not Reportable 07/03/17 05:07 Macrocytosis Not Reportable 07/03/17 05:07 Spherocytes Not Reportable 07/03/17 05:07 Pappenheimer Bodies Not Reportable 07/03/17 05:07 Sickle Cells Not Reportable 07/03/17 05:07 Target Cells Not Reportable 07/03/17 05:07 Tear Drop Cells Not Reportable 07/03/17 05:07 Ovalocytes Not Reportable 07/03/17 05:07 Helmet Cells Not Reportable 07/03/17 05:07 [place] Bodies Not Reportable 07/03/17 05:07 [place] Rings Not Reportable 07/03/17 05:07 [place] Cells Not Reportable 07/03/17 05:07 Bite Cells Not Reportable 07/03/17 05:07 Crenated Cell Not Reportable 07/03/17 05:07 Elliptocytes Not Reportable 07/03/17 05:07 Acanthocytes (Spur) Not Reportable 07/03/17 05:07 Rouleaux Not Reportable 07/03/17 05:07 Hemoglobin C Crystals Not Reportable 07/03/17 05:07 Schistocytes Not Reportable 07/03/17 05:07 Malaria parasites Not Reportable 07/03/17 05:07 Chaitanya Bodies Not Reportable 07/03/17 05:07 Hem Pathologist Commnt No 07/03/17 05:07 POC ABG pH 7.416 (7.35-7.45) 07/01/17 14:14 POC ABG pCO2 57.9 (35-45) H 07/01/17 14:14 POC ABG pO2 77 (80-105) L 07/01/17 14:14 POC ABG HCO3 37.3 07/01/17 14:14 POC ABG Total CO2 39 07/01/17 14:14 POC ABG O2 Sat 95 07/01/17 14:14 POC ABG Base Excess 13 07/01/17 14:14 FiO2 32 % 07/01/17 14:14 Sodium 144 mmol/L (137-145) 07/03/17 05:07 Potassium 3.9 mmol/L (3.6-5.0) D 07/03/17 05:07 Chloride 100.6 mmol/L (98-107) 07/03/17 05:07 Carbon Dioxide 33 mmol/L (22-30) H 07/03/17 05:07 Anion Gap 14 mmol/L 07/03/17 05:07 BUN 25 mg/dL (9-20) H 07/03/17 05:07 Creatinine 0.5 mg/dL (0.8-1.5) L 07/03/17 05:07 Estimated GFR > 60 ml/min 07/03/17 05:07 BUN/Creatinine Ratio 50 % 07/03/17 05:07 Glucose 123 mg/dL (75-100) H 07/03/17 05:07 POC Glucose 145 (70-105) H 07/05/17 11:27 Hemoglobin A1c 5.9 % (4-6) 07/05/17 04:52 Lactic Acid 1.80 mmol/L (0.7-2.0) 07/02/17 10:27 Calcium 8.3 mg/dL (8.4-10.2) L 07/03/17 05:07 Troponin T < 0.010 ng/mL (0.00-0.029) 07/01/17 10:06 Urine Color Yellow (Yellow) 07/02/17 08:57 Urine Turbidity Clear (Clear) 07/02/17 08:57 Urine pH 5.0 (5.0-7.0) 07/02/17 08:57 Ur Specific [place] 1.032 (1.003-1.030) H 07/02/17 08:57 Urine Protein 100 mg/dl mg/dL (Negative) 07/02/17 08:57 Urine Glucose (UA) 150 mg/dL (Negative) 07/02/17 08:57 Urine Ketones Neg mg/dL (Negative) 07/02/17 08:57 Urine Blood Neg (Negative) 07/02/17 08:57 Urine Nitrite Neg (Negative) 07/02/17 08:57 Urine Bilirubin Neg (Negative) 07/02/17 08:57 Urine Urobilinogen < 2.0 mg/dL (<2.0) 07/02/17 08:57 Ur Leukocyte Esterase Neg (Negative) 07/02/17 08:57 Urine WBC (Auto) 5.0 /HPF (0.0-6.0) 07/02/17 08:57 Urine RBC (Auto) 2.0 /HPF (0.0-6.0) 07/02/17 08:57 U Epithel Cells (Auto) 1.0 /HPF (0-13.0) 07/02/17 08:57 Urine Yeast (Budding) Few /HPF 07/02/17 08:57
[2017-07-05] MEDS: CARDIZEM PO SCH ×2 (12:21→18:03)
--- NOTE | 2017-07-05 15:31 | Consultation ---
History of Present Illness Consult date: 07/05/17 Requesting physician: RADUEL TOLBERT Reason for consult: COPD History of present illness: 77 y/o male admitted with COPD exacerbation. Followed by Dr. De Leon on the outside whom the patient states takes care of his lungs. Consulted by hospitalist service after 4 days of admission. Patient states that his breathing is stable. He has received a large amount of fluid over the last several days. 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 Past History Past Medical History: COPD, GERD, hypertension Past Surgical History: appendectomy, cataract removal, hernia repair Social history: . denies: smoking, alcohol abuse, prescription drug abuse Family history: no significant family history (reviewed) Medications and Allergies Allergies Allergy/AdvReac Type Severity Reaction Status Date / Time No Known Allergies Allergy Verified 03/29/16 15:03 Home Medications Medication Instructions Recorded Confirmed Last Taken Type Ipratropium/Albuter (Nf) 2 puff IH QID 07/01/17 07/01/17 Unknown History [Combivent Inhaler] Ranitidine HCl [Zantac 150 MG TAB] 150 mg PO DAILY 07/01/17 07/01/17 Unknown History ALBUTEROL Inhaler [ProAir HFA 2 puff IH QID PRN #1 inhalation 07/04/17 Unknown Rx Inhaler] Levofloxacin [Levaquin TAB] 750 mg PO QDAY #7 tablet 07/04/17 Unknown Rx methylPREDNISolone [Medrol Dose 4 mg PO DAILY #1 pack 07/04/17 Unknown Rx Kian] Active Meds: Active Medications Acetaminophen (Tylenol) 650 mg PO Q4H PRN PRN Reason: Pain MILD(1-3)/Fever >100.5/DUBON Albuterol/Ipratropium (Duoneb *Not For Prn Use*) 1 ampul IH Q6HRT [facility] Last Admin: 07/05/17 08:57 Dose: 1 ampul Cholecalciferol (Vitamin D3) 400 unit PO QDAY [facility] Last Admin: 07/05/17 10:27 Dose: 400 unit Cyclobenzaprine HCl (Flexeril) 10 mg PO TID PRN PRN Reason: Muscle Spasm Dextrose (D50w (25gm) Syringe) 50 ml IV PRN PRN PRN Reason: Hypoglycemia Diltiazem HCl (Cardizem) 30 mg PO Q6HR [facility] Last Admin: 07/05/17 12:21 Dose: 30 mg Hydralazine HCl (Apresoline) 10 mg IV Q4HR PRN PRN Reason: HTN SBP>160/DBP>90 Last Admin: 07/05/17 05:33 Dose: 10 mg Piperacillin Sod/Tazobactam Sod (Zosyn/Ns 4.5gm/100ml) 4.5 gm in 100 mls @ 200 mls/hr IV Q8HR [facility]; Protocol Last Admin: 07/05/17 14:22 Dose: 200 mls/hr Vancomycin HCl 1,250 mg/ (Sodium Chloride) 262.5 mls @ 131.25 mls/hr IV Q24H [facility] Last Admin: 07/04/17 17:35 Dose: 131.25 mls/hr Sodium Chloride (Nacl 0.9% 1000 Ml) 1,000 mls @ 125 mls/hr IV DIRECT [facility] Last Admin: 07/05/17 05:38 Dose: 125 mls/hr Insulin Glargine (Lantus) 10 units SUB-Q QHS [facility] Last Admin: 07/04/17 21:10 Dose: 10 units Insulin Human Lispro (Humalog) 0 unit SUB-Q ACHS [facility]; Protocol Last Admin: 07/05/17 11:54 Dose: Not Given Levalbuterol HCl (Xopenex) 1.25 mg IH Q6HRT PRN PRN Reason: Shortness Of Breath Methylprednisolone Sodium Succinate (Solu-Medrol) 40 mg IV Q8HR [facility] Last Admin: 07/05/17 14:22 Dose: 40 mg Ondansetron HCl (Zofran) 4 mg IV Q8H PRN PRN Reason: Nausea And Vomiting Pantoprazole Sodium (Protonix) 40 mg PO QDAY [facility] Last Admin: 07/05/17 10:26 Dose: 40 mg Sodium Chloride (Sodium Chloride Flush Syringe 10 Ml) 10 ml IV BID [facility] Last Admin: 07/05/17 10:27 Dose: 10 ml Sodium Chloride (Sodium Chloride Flush Syringe 10 Ml) 10 ml IV PRN PRN PRN Reason: LINE FLUSH Last Admin: 07/03/17 08:57 Dose: 10 ml Vancomycin HCl (Vancomycin Pharmacy To Dose) 1 each IV PKCONSULT [facility] Physical Examination Vital signs: Vital Signs Temp Pulse Resp BP Pulse Ox 98.1 F 123 H 24 186/89 93 07/01/17 09:41 07/01/17 09:41 07/01/17 09:41 07/01/17 09:41 07/01/17 09:41 Results - Laboratory Findings CBC and BMP: 07/03/17 05:07 07/03/17 05:07 ABG POC ABG pH 7.416 (7.35-7.45) 07/01/17 14:14 POC ABG pCO2 57.9 (35-45) H 07/01/17 14:14 POC ABG pO2 77 (80-105) L 07/01/17 14:14 POC ABG HCO3 37.3 07/01/17 14:14 POC ABG Total CO2 39 07/01/17 14:14 POC ABG O2 Sat 95 07/01/17 14:14 Abnormal lab findings: Abnormal Labs 07/01/17 07/01/17 07/01/17 10:06 10:09 14:14 WBC 20.8 H RBC Hgb Hct Seg Neuts % (Manual) 89.0 H Lymphocytes % (Manual) 6.0 L Seg Neutrophils # Man 18.5 H Lymphocytes # (Manual) Monocytes # (Manual) 1.0 H POC ABG pCO2 57.9 H POC ABG pO2 77 L Chloride 94.1 L Carbon Dioxide BUN Creatinine 0.6 L Glucose 193 H POC Glucose Lactic Acid Calcium Ur Specific [place] 07/01/17 07/01/17 07/02/17 21:14 22:15 08:57 WBC RBC Hgb Hct Seg Neuts % (Manual) Lymphocytes % (Manual) Seg Neutrophils # Man Lymphocytes # (Manual) Monocytes # (Manual) POC ABG pCO2 POC ABG pO2 Chloride Carbon Dioxide BUN Creatinine Glucose POC Glucose 319 H Lactic Acid 4.80 H* Calcium Ur Specific [place] 1.032 H 07/02/17 07/02/17 07/02/17 11:14 16:28 22:56 WBC RBC Hgb Hct Seg Neuts % (Manual) Lymphocytes % (Manual) Seg Neutrophils # Man Lymphocytes # (Manual) Monocytes # (Manual) POC ABG pCO2 POC ABG pO2 Chloride Carbon Dioxide BUN Creatinine Glucose POC Glucose 202 H 233 H 332 H Lactic Acid Calcium Ur Specific [place] 07/03/17 07/03/17 07/03/17 05:07 05:07 07:48 WBC 14.4 H RBC 3.60 L Hgb 10.8 L Hct 33.1 L Seg Neuts % (Manual) 81.0 H Lymphocytes % (Manual) 6.0 L Seg Neutrophils # Man 11.7 H Lymphocytes # (Manual) 0.9 L Monocytes # (Manual) POC ABG pCO2 POC ABG pO2 Chloride Carbon Dioxide 33 H BUN 25 H Creatinine 0.5 L Glucose 123 H POC Glucose 157 H Lactic Acid Calcium 8.3 L Ur Specific [place] 07/03/17 07/03/17 07/03/17 11:23 16:33 23:28 WBC RBC Hgb Hct Seg Neuts % (Manual) Lymphocytes % (Manual) Seg Neutrophils # Man Lymphocytes # (Manual) Monocytes # (Manual) POC ABG pCO2 POC ABG pO2 Chloride Carbon Dioxide BUN Creatinine Glucose POC Glucose 259 H 244 H 195 H Lactic Acid Calcium Ur Specific [place] 07/04/17 07/04/17 07/04/17 07:19 11:36 21:40 WBC RBC Hgb Hct Seg Neuts % (Manual) Lymphocytes % (Manual) Seg Neutrophils # Man Lymphocytes # (Manual) Monocytes # (Manual) POC ABG pCO2 POC ABG pO2 Chloride Carbon Dioxide BUN Creatinine Glucose POC Glucose 126 H 188 H 168 H Lactic Acid Calcium Ur Specific [place] 07/05/17 07/05/17 07:27 11:27 WBC RBC Hgb Hct Seg Neuts % (Manual) Lymphocytes % (Manual) Seg Neutrophils # Man Lymphocytes # (Manual) Monocytes # (Manual) POC ABG pCO2 POC ABG pO2 Chloride Carbon Dioxide BUN Creatinine Glucose POC Glucose 114 H 145 H Lactic Acid Calcium Ur Specific [place] Assessment and Plan 77 y/o male with COPD, admitted with COPD exacerbation. 1. Agree with current dose of steroid 2. Continue schedule neb treatments 3. Follow up CT results 4. Stop IVF's 5. Will check BNP 6. If elevated with need lasix therapy. May need to consider echo to evaluate right sided pressures.
[2017-07-05] MEDS: VANCOMYCIN 1,250 MG in NACL 0.9% 250ML 250 ML IV SCH (16:19)
[2017-07-05] MEDS: LANTUS SUB-Q SCH (21:19)
[2017-07-06] MEDS: DUONEB *Not for PRN Use IH SCH ×4 (02:10→20:08)
[2017-07-06] MEDS: CARDIZEM PO SCH ×4 (02:35→17:17)
[2017-07-06] MEDS: NACL 0.9% 1000 ML 1,000 ML IV SCH ×3 (03:13→21:11)
[2017-07-06] MEDS: ZOSYN/NS 4.5GM/100ML 4.5 GM/100 ML VIAL IV SCH (05:42)
[2017-07-06] MEDS: HumaLOG SUB-Q SCH ×3 (07:32→16:58)
--- NOTE | 2017-07-06 08:11 | Cat Scan Report ---
FINAL REPORT EXAM: CT CHEST W CON HISTORY: hypoxia with tachycardia, r/o PE TECHNIQUE: CT angiography of the chest was performed. IV contrast was administered. Axial images and coronal and sagittal reformat images were obtained. PRIORS: None. FINDINGS: There is no aortic dissection seen. There are coronary artery atherosclerotic calcifications. There is no significant mediastinal or hilar mass seen. There are no filling defects seen within the pulmonary arterial circulation to suggest pulmonary embolism. There are small bilateral pleural effusions, left more than right. There is marked emphysema. There is some right a hemidiaphragm calcification/plaque. There is a spiculated soft tissue density abutting this calcified plaque measuring about 9 x 6 mm. This is probably adjacent scarring. A small mass is not excluded. Suggest three-month follow-up to confirm stability. There is no pneumothorax seen. IMPRESSION: There is no pulmonary embolism or aortic dissection seen. Marked emphysema. Calcified pleural plaques along right hemidiaphragm. Adjacent 9 x 6 mm soft tissue density at the right lung base may be scarring. Developing mass not excluded. If stability cannot be established by comparison to old studies, recommend three-month follow-up. Consider PET scan correlation. Small left and trace right pleural effusions.
[2017-07-06] MEDS: SODIUM CHLORIDE FLUSH SYRINGE 10 ML IV SCH ×2 (10:21→21:14)
[2017-07-06] MEDS: PROTONIX PO SCH (10:22)
[2017-07-06] MEDS: VITAMIN D3 PO SCH (10:22)
[2017-07-06] MEDS ORDERED: LASIX IV ONE (13:28)
--- NOTE | 2017-07-06 13:49 | Progress Note ---
Assessment and Plan 77 y/o male with COPD, admitted with COPD exacerbation. Today: ordered BNP stat as I did not order yesterday. Ordered a one time dose of lasix. Otherwise same recs as below. Dr. De Leon is here and he knows the patient. Will see PRN or more if he wants our help. Per the patient, Dr. De Leon has managed his lung disease for years and he is seeing him today. 1. Agree with current dose of steroid 2. Continue schedule neb treatments 3. Follow up CT results 4. Stop IVF's 5. Will check BNP 6. If elevated with need lasix therapy. May need to consider echo to evaluate right sided pressures. Subjective Date of service: 07/06/17 Interval history: No acute events. Lying flat in bed. Objective Vital Signs - 12hr 07/06/17 07/06/17 07/06/17 02:12 02:29 03:00 Temperature 98.6 F Pulse Rate 105 H Pulse Rate [ 97 H 99 H Anterior Bilateral Throughout] Pulse Rate [ Anterior Bilateral] Respiratory 20 Rate Respiratory 16 16 Rate [Anterior Bilateral Throughout] Respiratory Rate [Anterior Bilateral] Blood Pressure 128/59 O2 Sat by Pulse 96 Oximetry 07/06/17 07/06/17 07/06/17 07:01 09:55 10:00 Temperature 98.8 F Pulse Rate 120 H Pulse Rate [ 95 H Anterior Bilateral Throughout] Pulse Rate [ 100 H Anterior Bilateral] Respiratory 20 Rate Respiratory 18 Rate [Anterior Bilateral Throughout] Respiratory 18 Rate [Anterior Bilateral] Blood Pressure 132/62 O2 Sat by Pulse 97 Oximetry 07/06/17 12:20 Temperature Pulse Rate 93 H Pulse Rate [ Anterior Bilateral Throughout] Pulse Rate [ Anterior Bilateral] Respiratory Rate Respiratory Rate [Anterior Bilateral Throughout] Respiratory Rate [Anterior Bilateral] Blood Pressure 136/58 O2 Sat by Pulse Oximetry CBC and BMP: 07/03/17 05:07 07/03/17 05:07 ABG, PT/INR, D-dimer: ABG POC ABG pH 7.416 (7.35-7.45) 07/01/17 14:14 POC ABG pCO2 57.9 (35-45) H 07/01/17 14:14 POC ABG pO2 77 (80-105) L 07/01/17 14:14 POC ABG HCO3 37.3 07/01/17 14:14 POC ABG Total CO2 39 07/01/17 14:14 POC ABG O2 Sat 95 07/01/17 14:14 Abnormal lab findings: Abnormal Labs 07/01/17 07/01/17 07/01/17 10:06 10:09 14:14 WBC 20.8 H RBC Hgb Hct Seg Neuts % (Manual) 89.0 H Lymphocytes % (Manual) 6.0 L Seg Neutrophils # Man 18.5 H Lymphocytes # (Manual) Monocytes # (Manual) 1.0 H POC ABG pCO2 57.9 H POC ABG pO2 77 L Chloride 94.1 L Carbon Dioxide BUN Creatinine 0.6 L Glucose 193 H POC Glucose Lactic Acid Calcium Ur Specific [place] 07/01/17 07/01/17 07/02/17 21:14 22:15 08:57 WBC RBC Hgb Hct Seg Neuts % (Manual) Lymphocytes % (Manual) Seg Neutrophils # Man Lymphocytes # (Manual) Monocytes # (Manual) POC ABG pCO2 POC ABG pO2 Chloride Carbon Dioxide BUN Creatinine Glucose POC Glucose 319 H Lactic Acid 4.80 H* Calcium Ur Specific [place] 1.032 H 07/02/17 07/02/17 07/02/17 11:14 16:28 22:56 WBC RBC Hgb Hct Seg Neuts % (Manual) Lymphocytes % (Manual) Seg Neutrophils # Man Lymphocytes # (Manual) Monocytes # (Manual) POC ABG pCO2 POC ABG pO2 Chloride Carbon Dioxide BUN Creatinine Glucose POC Glucose 202 H 233 H 332 H Lactic Acid Calcium Ur Specific [place] 07/03/17 07/03/17 07/03/17 05:07 05:07 07:48 WBC 14.4 H RBC 3.60 L Hgb 10.8 L Hct 33.1 L Seg Neuts % (Manual) 81.0 H Lymphocytes % (Manual) 6.0 L Seg Neutrophils # Man 11.7 H Lymphocytes # (Manual) 0.9 L Monocytes # (Manual) POC ABG pCO2 POC ABG pO2 Chloride Carbon Dioxide 33 H BUN 25 H Creatinine 0.5 L Glucose 123 H POC Glucose 157 H Lactic Acid Calcium 8.3 L Ur Specific [place] 07/03/17 07/03/17 07/03/17 11:23 16:33 23:28 WBC RBC Hgb Hct Seg Neuts % (Manual) Lymphocytes % (Manual) Seg Neutrophils # Man Lymphocytes # (Manual) Monocytes # (Manual) POC ABG pCO2 POC ABG pO2 Chloride Carbon Dioxide BUN Creatinine Glucose POC Glucose 259 H 244 H 195 H Lactic Acid Calcium Ur Specific [place] 07/04/17 07/04/17 07/04/17 07:19 11:36 21:40 WBC RBC Hgb Hct Seg Neuts % (Manual) Lymphocytes % (Manual) Seg Neutrophils # Man Lymphocytes # (Manual) Monocytes # (Manual) POC ABG pCO2 POC ABG pO2 Chloride Carbon Dioxide BUN Creatinine Glucose POC Glucose 126 H 188 H 168 H Lactic Acid Calcium Ur Specific [place] 07/05/17 07/05/17 07/05/17 07:27 11:27 22:23 WBC RBC Hgb Hct Seg Neuts % (Manual) Lymphocytes % (Manual) Seg Neutrophils # Man Lymphocytes # (Manual) Monocytes # (Manual) POC ABG pCO2 POC ABG pO2 Chloride Carbon Dioxide BUN Creatinine Glucose POC Glucose 114 H 145 H 159 H Lactic Acid Calcium Ur Specific [place] 07/06/17 07/06/17 07:09 11:58 WBC RBC Hgb Hct Seg Neuts % (Manual) Lymphocytes % (Manual) Seg Neutrophils # Man Lymphocytes # (Manual) Monocytes # (Manual) POC ABG pCO2 POC ABG pO2 Chloride Carbon Dioxide BUN Creatinine Glucose POC Glucose 119 H 156 H Lactic Acid Calcium Ur Specific [place]
--- NOTE | 2017-07-06 14:08 | Progress Note ---
Assessment and Plan Assessment and Plan: Sepsis, probably sec to acute bronchitis versus early PNA -cont iv antibiotics, wbc level trended down -blood and urine cultures neg so far Acute respiratory failure with hypoxia and hypercapnia -cont BIPAP prn -cont 02 supplementation as needed and neb tx Improving May need home O2 Acute COPD exacerbation -cont iv steroid, neb tx and iv antibiotics -due to the persistent tachypnea, Hyperglycemia -probably sec to steroid use -controlled on SSI and lantus -HBA1C level: 5.9 HTN with sinus tachycardia -oral diltiazem started Disp: will d/c pt when medically stable Probably tomorrow Subjective Date of service: 07/06/17 Principal diagnosis: Acute resp failure Interval history: Still SOB .Wheezing+++ Objective - Exam Narrative Exam: Still uncomfortable - Constitutional Vitals: Vital Signs - 12hr 07/06/17 07/06/17 07/06/17 02:12 02:29 03:00 Temperature 98.6 F Pulse Rate 105 H Pulse Rate [ 97 H 99 H Anterior Bilateral Throughout] Pulse Rate [ Anterior Bilateral] Respiratory 20 Rate Respiratory 16 16 Rate [Anterior Bilateral Throughout] Respiratory Rate [Anterior Bilateral] Blood Pressure 128/59 O2 Sat by Pulse 96 Oximetry 07/06/17 07/06/17 07/06/17 07:01 09:55 10:00 Temperature 98.8 F Pulse Rate 120 H Pulse Rate [ 95 H Anterior Bilateral Throughout] Pulse Rate [ 100 H Anterior Bilateral] Respiratory 20 Rate Respiratory 18 Rate [Anterior Bilateral Throughout] Respiratory 18 Rate [Anterior Bilateral] Blood Pressure 132/62 O2 Sat by Pulse 97 Oximetry 07/06/17 12:20 Temperature Pulse Rate 93 H Pulse Rate [ Anterior Bilateral Throughout] Pulse Rate [ Anterior Bilateral] Respiratory Rate Respiratory Rate [Anterior Bilateral Throughout] Respiratory Rate [Anterior Bilateral] Blood Pressure 136/58 O2 Sat by Pulse Oximetry General appearance: Present: mild distress, well-nourished - EENT Eyes: PERRL, EOM intact ENT: hearing intact, clear oral mucosa Ears: bilateral: normal - Neck Neck: supple, normal ROM - Respiratory Respiratory effort: normal Respiratory: bilateral: rhonchi, wheezing - Breasts Breasts: normal - Cardiovascular Rhythm: regular Heart Sounds: Present: S1 & S2. Absent: gallop, rub Extremities: no ischemia, pulses intact, No edema, normal color, Full ROM - Gastrointestinal General gastrointestinal: Present: soft, non-tender, non-distended, normal bowel sounds - Genitourinary Male genitourinary: normal - Integumentary Integumentary: clear, warm, dry - Musculoskeletal Musculoskeletal: 1, strength equal bilaterally - Neurologic Neurologic: moves all extremities - Psychiatric Psychiatric: memory intact, appropriate mood/affect, intact judgment & insight - Labs CBC & Chem 7: 07/03/17 05:07 07/03/17 05:07 Labs: Abnormal lab results 07/05/17 07/06/17 07/06/17 Range/Units 22:23 07:09 11:58 POC Glucose 159 H 119 H 156 H (70-105)
[2017-07-06] MEDS: LANTUS SUB-Q SCH (21:13)
[2017-07-07] MEDS: HumaLOG SUB-Q SCH ×3 (00:11→11:50)
[2017-07-07] MEDS: CARDIZEM PO SCH ×3 (00:11→12:03)
[2017-07-07] MEDS: DUONEB *Not for PRN Use IH SCH ×3 (02:15→13:49)
[2017-07-07] MEDS: NACL 0.9% 1000 ML 1,000 ML IV SCH (05:23)
[2017-07-07] MEDS: PROTONIX PO SCH (08:59)
[2017-07-07] MEDS: VITAMIN D3 PO SCH (08:59)
[2017-07-07] MEDS: SODIUM CHLORIDE FLUSH SYRINGE 10 ML IV SCH (08:59)
--- NOTE | 2017-07-07 09:29 | Progress Note ---
Assessment and Plan Assessment and Plan: Sepsis, probably sec to acute bronchitis versus early PNA -cont iv antibiotics, wbc level trended down -blood and urine cultures neg so far Acute respiratory failure with hypoxia and hypercapnia -cont BIPAP prn -cont 02 supplementation as needed and neb tx Improving May need home O2 Acute COPD exacerbation -cont iv steroid, neb tx and iv antibiotics -due to the persistent tachypnea, Hyperglycemia -probably sec to steroid use -controlled on SSI and lantus -HBA1C level: 5.9 HTN with sinus tachycardia -oral diltiazem started Disp: will d/c pt when medically stable Probably tomorrow Subjective Date of service: 07/07/17 Principal diagnosis: Acute resp failure Interval history: Still SOB .Wheezing+++ Objective - Exam Narrative Exam: Still uncomfortable - Constitutional Vitals: Vital Signs - 12hr 07/06/17 07/07/17 07/07/17 22:00 02:00 05:23 Temperature 98.4 F Pulse Rate 98 H 87 Pulse Rate [ Anterior Bilateral Throughout] Pulse Rate [ 98 H From Monitor] Respiratory 18 20 Rate Respiratory Rate [Anterior Bilateral Throughout] Blood Pressure 130/68 130/68 Blood Pressure 130/68 [Right] O2 Sat by Pulse 98 97 Oximetry 07/07/17 07/07/17 07/07/17 07:13 09:00 09:04 Temperature 98.4 F Pulse Rate 96 H Pulse Rate [ 105 H Anterior Bilateral Throughout] Pulse Rate [ From Monitor] Respiratory 20 Rate Respiratory 20 Rate [Anterior Bilateral Throughout] Blood Pressure 143/73 Blood Pressure [Right] O2 Sat by Pulse 97 97 Oximetry 07/07/17 09:15 Temperature Pulse Rate Pulse Rate [ 110 H Anterior Bilateral Throughout] Pulse Rate [ From Monitor] Respiratory Rate Respiratory 20 Rate [Anterior Bilateral Throughout] Blood Pressure Blood Pressure [Right] O2 Sat by Pulse Oximetry General appearance: Present: no acute distress, well-nourished - EENT Eyes: PERRL, EOM intact ENT: hearing intact, clear oral mucosa Ears: bilateral: normal - Neck Neck: supple, normal ROM - Respiratory Respiratory effort: normal Respiratory: bilateral: CTA - Breasts Breasts: normal - Cardiovascular Rhythm: regular Heart Sounds: Present: S1 & S2. Absent: gallop, rub Extremities: pulses intact, No edema, normal color, Full ROM - Gastrointestinal General gastrointestinal: Present: soft, non-tender, non-distended, normal bowel sounds - Genitourinary Male genitourinary: normal - Integumentary Integumentary: clear, warm, dry - Musculoskeletal Musculoskeletal: 1, strength equal bilaterally - Neurologic Neurologic: moves all extremities - Psychiatric Psychiatric: memory intact, appropriate mood/affect, intact judgment & insight - Labs CBC & Chem 7: 07/03/17 05:07 07/03/17 05:07 Labs: Abnormal lab results 07/06/17 07/06/17 07/06/17 Range/Units 11:58 13:57 16:57 POC Glucose 156 H 147 H (70-105) NT-Pro-B Natriuret Pep 8925 H (0-900) pg/mL 07/06/17 07/07/17 Range/Units 22:39 07:21 POC Glucose 303 H 129 H (70-105) NT-Pro-B Natriuret Pep (0-900) pg/mL
[2017-07-07 15:01] VITALS: BP 140/62
--- NOTE | 2017-07-07 15:08 | Discharge Summary ---
Providers - Providers Date of Admission: 07/01/17 15:29 Date of discharge: 07/07/17 Attending physician: AAMIR TANNER 07/03/17 11:56 Physical Therapy Evaluation and Treat [CONS] Urgent Comment: Reason For Exam: deconditioning Primary care physician: [employer] Hospitalization Condition: Stable Disposition: [id number] STILL A PATIENT Exam - Constitutional Vitals: Temp Pulse Resp BP Pulse Ox 98.1 F 79 20 140/62 97 07/07/17 13:23 07/07/17 14:01 07/07/17 14:01 07/07/17 13:23 07/07/17 13:23 Plan Follow up with: PRIMARY CARE, [Primary Care Provider] - 3-5 Days Prescriptions: ALBUTEROL Inhaler [ProAir HFA Inhaler] 2 puff IH QID PRN #1 inhalation PRN Reason: Shortness Of Breath Levofloxacin [Levaquin TAB] 750 mg PO QDAY #7 tablet methylPREDNISolone [Medrol Dose Kian] 4 mg PO DAILY #1 pack
== END 2017-07-07 16:46 | disposition home or self-care (01) | DRG 871 ==
LOC: ED 09:16 → 2B-ACE 15:29
PROVIDERS: ADMIT Internal Medicine; ATTEND Internal Medicine
PROC: 4A033R1 Measurement of Arterial Saturation, Peripheral, Percutaneous Approach (ICD-10-PCS; principal; 2017-07-01)
PROC: 5A09357 Assistance with Respiratory Ventilation, Less than 24 Consecutive Hours, Continuous Positive Airway Pressure (ICD-10-PCS; 2017-07-01)
DX: A41.9 Sepsis, unspecified organism (principal); J96.02 Acute respiratory failure with hypercapnia; J96.01 Acute respiratory failure with hypoxia; J18.9 Pneumonia, unspecified organism; J44.1 Chronic obstructive pulmonary disease with (acute) exacerbation; J44.0 Chronic obstructive pulmonary disease with (acute) lower respiratory infection; R73.9 Hyperglycemia, unspecified; T38.0X5A Adverse effect of glucocorticoids and synthetic analogues, initial encounter; I10 Essential (primary) hypertension; K21.9 Gastro-esophageal reflux disease without esophagitis; Z90.49 Acquired absence of other specified parts of digestive tract; Z87.891 Personal history of nicotine dependence; Z79.899 Other long term (current) drug therapy; Z98.49 Cataract extraction status, unspecified eye; Y92.89 Other specified places as the place of occurrence of the external cause
CPT/HCPCS: 36415; 71045; 71260; 80048; 81001; 82140; 82803; 82962; 83036; 83880; 84484; 85007; 85025; 87040; 87086; 93005; 93010; 93306; 94640; 94660; 94760; 96365; 96375; G8978-GP; G8979-GP; G8980-GP; J0360; J0696; J1815; J1940; J2543; J2920; J2930; J3370; J7030; J7040; J7050; Q9967

== ENCOUNTER 2017-10-05 14:07 | Emergency (ER) | payer MEDICARE, OTHER ==
[2017-10-05] MEDS ORDERED: XOPENEX IH ONE (14:49)
[2017-10-05] MEDS ORDERED: ATROVENT IH ONE (14:49)
--- NOTE | 2017-10-05 14:57 | Emergency Department Report ---
HPI - General Chief Complaint: Dyspnea/Respdistress Time Seen by Provider: 10/05/17 14:41 - HPI HPI: Room 4 The patient is a 77-year-old male presenting with a chief complaint of shortness of breath. The patient states last night he became short of breath. Patient states he's had a cough that has been nonproductive. Patient denies fever. The patient states this morning he had 10 minutes of pain in the right chest/right shoulder which resolved. Patient currently denies any form of pain. Location: Lungs Duration: Since last night Quality: Shortness Of breath Severity: Moderate Modifying factors: [see above] Context: [see above] Mode of transportation: [not driving] ED Past Medical Hx - Past Medical History Previous Medical History?: Yes Hx Hypertension: Yes Hx GERD: Yes Hx COPD: Yes Additional medical history: Macular degeneration. SBO. hernia (doesn't remember what type). emphysema - Surgical History Past Surgical History?: Yes Hx Appendectomy: Yes Additional Surgical History: BLOOD CLOTS BEHIND RIGHT EYE REMOVED. CATARACT SURGERY BOTH EYES REMOVED. HERNIA REPAIR - Family History Family history: no significant - Social History Smoking Status: Former Smoker (none 10 years) Substance Use Type: Alcohol (rarely) - Medications Home Medications: Home Medications Medication Instructions Recorded Confirmed Last Taken Type Ranitidine HCl [Zantac 150 MG TAB] 150 mg PO DAILY 07/01/17 10/05/17 Unknown History Levofloxacin [Levaquin TAB] 750 mg PO QDAY #7 tablet 07/04/17 10/05/17 Unknown Rx methylPREDNISolone [Medrol Dose 4 mg PO DAILY #1 pack 07/04/17 10/05/17 Unknown Rx Kian] Glimepiride 1 mg PO QDAY #30 tablet 07/07/17 10/05/17 Unknown Rx Ipratropium/Albuter (Nf) 2 puff IH QID #1 inha 07/07/17 10/05/17 Unknown Rx [Combivent Inhaler] ALBUTEROL Inhaler [ProAir HFA 2 puff IH QID PRN #1 inhalation 10/05/17 Unknown Rx Inhaler] Amoxicillin 500 mg PO BID #14 capsule 10/05/17 Unknown Rx Ipratropium/Albuterol Sulfate 1 ampul IH Q6HR #100 ampul.neb 10/05/17 Unknown Rx [DUONEB *Not for PRN Use*] Prednisone [predniSONE 10 mg 10 mg PO .TAPER #1 tab.ds.pk 10/05/17 Unknown Rx (6-Day Pack, 21 Tabs)] ED Review of Systems ROS: Stated complaint: BREATHING/CHEST Other details as noted in HPI Constitutional: denies: fever Eyes: denies: eye pain ENT: denies: throat pain Respiratory: cough, shortness of breath Cardiovascular: denies: chest pain Endocrine: no symptoms reported Gastrointestinal: denies: abdominal pain Genitourinary: denies: dysuria Musculoskeletal: myalgia Neurological: denies: headache Physical Exam - Physical Exam Vital Signs: Vital Signs 10/05/17 14:27 Temperature 98.2 F Pulse Rate 120 H Respiratory 20 Rate Blood Pressure 193/85 O2 Sat by Pulse 95 Oximetry Physical Exam: GENERAL: The patient is well-developed well-nourished male sitting on stretcher not appearing to be in acute distress. [] HEENT: Normocephalic. Atraumatic. Extraocular motions are intact. Patient has moist mucous membranes. NECK: Supple. Trachea midline CHEST/LUNGS: No wheezing auscultated. Slightly diminished breath sounds left base. There is no respiratory distress noted. HEART/CARDIOVASCULAR: Regular. There is tachycardia. There is no gallop rub or murmur. ABDOMEN: Abdomen is soft, nontender. Patient has normal bowel sounds. There is no abdominal distention. SKIN: There is no rash. There is no diaphoresis. NEURO: The patient is awake, alert, and oriented. The patient is cooperative. The patient has normal speech MUSCULOSKELETAL: There is no evidence of acute injury. ED Course Vital Signs 10/05/17 14:27 Temperature 98.2 F Pulse Rate 120 H Respiratory 20 Rate Blood Pressure 193/85 O2 Sat by Pulse 95 Oximetry - Reevaluation(s) Reevaluation #1: 10/05/17 17:52 Patient states he feels good after receiving nebulizer. Strong warnings given ED Medical Decision Making - Lab Data Result diagrams: 10/05/17 14:55 10/05/17 14:55 Laboratory Tests 10/05/17 10/05/17 10/05/17 14:55 14:55 15:04 WBC 13.1 H RBC 4.08 Hgb 12.2 Hct 36.9 MCV 91 MCH 30 MCHC 33 RDW 15.5 H Plt Count 147 Lymph % (Auto) 6.9 L Waller % (Auto) 5.3 Eos % (Auto) 0.8 Baso % (Auto) 0.5 Lymph # 0.9 L Waller # 0.7 Eos # 0.1 Baso # 0.1 Seg Neutrophils % 86.5 H Seg Neutrophils # 11.3 H D-Dimer 256.35 H Sodium 141 Potassium 4.2 Chloride 97.1 L Carbon Dioxide 33 H Anion Gap 15 BUN 17 Creatinine 0.5 L Estimated GFR > 60 BUN/Creatinine Ratio 34 Glucose 173 H Calcium 9.4 Troponin T < 0.010 - EKG Data -: EKG Interpreted by Ia EKG shows normal: sinus rhythm Rate: tachycardia (114 bpm) - EKG Data When compared to previous EKG there are: no significant change Interpretation: unchanged when compared t (07/01/2017) - Radiology Data Radiology results: report reviewed (CT chest), image reviewed (CT chest) [facility] [address] [place] [address] Cat Scan Report Signed Patient: LETY YANCEY MR#: [id number] : 1940 Acct:[id number] Age/Sex: 77 / M ADM Date: 10/05/17 Loc: ED Attending Dr: Ordering Physician: MILVIA ROSENBERG MD Date of Service: 10/05/17 Procedure(s): CT angio chest Accession Number(s): [id number] cc: MILVIA ROSENBERG MD FINAL REPORT EXAM: CT ANGIO CHEST HISTORY: shortness of breath TECHNIQUE: CTA of the chest was performed after the administration of intravenous contrast. Reconstructions were included in the coronal and sagittal planes. Rotating MIPS were included. PRIORS: CT of the chest from 07/05/2017. FINDINGS: Pulmonary arteries and thoracic aorta: The study is adequate for diagnostic purposes. No central or segmental pulmonary embolism. The thoracic aorta is normal in caliber. Atherosclerotic calculi are seen in the thoracic aorta. Lungs and airways: No pleural effusion. No airspace consolidation. The airways are patent. Multifocal bronchiectasis and bronchial wall thickening is seen. Unchanged previously seen calcified pleural plaques over the right hemidiaphragm. Small adjacent soft tissue nodule along the superior margin of the pleural plaque is grossly similar measuring 8 x 7 millimeters on series 2, image 122. Unchanged subpleural nodule in the right middle lobe measuring 5 millimeters on series 2, image 102. Probable linear scarring is seen within the anterior aspect of the left lower lobe. Unchanged severe emphysematous changes. Mediastinum, heart, pericardium: Several scattered mildly prominent mediastinal lymph nodes are seen. Coronary artery calculi are again seen. No cardiac chamber enlargement. No pericardial effusion. Thoracic inlet, chest wall, axilla: No chest wall masses. The visualized portions of the thyroid gland demonstrate no focal lesion. No axillary lymphadenopathy. Upper abdomen: A focal hyper attenuating lesion is seen within the right hepatic lobe measuring 9 millimeters which was more difficult to see on the prior study likely secondary to phase of contrast. No other attic lesions are seen. Two simple left renal cysts seen. Bones: Degenerative changes are seen in the spine. IMPRESSION: 1. No central or segmental pulmonary embolism. 2. Grossly similar calcified right lower pleural plaques with adjacent soft tissue nodule which may represent scarring or a pulmonary nodule. Three to six-month follow-up chest CT from the initial chest CT date of 07/05/2017 is recommended. 3. Unchanged 5 millimeter right middle lobe pulmonary nodule. 4. Unchanged severe pulmonary emphysema. 5. Hypoattenuating right hepatic lesion may represent a flash fill hemangioma or other soft tissue neoplasm. If further characterization is needed, recommend dedicated hepatic CT or MRI. Transcribed By: MG Dictated By: BRANDAN LECHUGA MD Electronically Authenticated By: BRANDAN GALVAN MD Signed Date/Time: 10/05/171741 DD/ 41 TD/TT: 10/05/171741 - Differential Diagnosis pneumonia, COPD exacerbation, pneumothorax, Critical care attestation.: If time is entered above; I have spent that time in minutes in the direct care of this critically ill patient, excluding procedure time. ED Disposition Clinical Impression: COPD exacerbation, Shortness of breath, Cough, Pulmonary nodules, Liver lesion Disposition: DC-01 TO HOME OR SELFCARE Is pt being admited?: No Does the pt Need Aspirin: No Condition: Stable Instructions: Chronic Obstructive Pulmonary Disease (ED) Additional Instructions: Return to the emergency department immediately should you develop worsening symptoms, fever, inability to tolerate food or liquid or any other concerns. Prescriptions: ALBUTEROL Inhaler [ProAir HFA Inhaler] 2 puff IH QID PRN #1 inhalation PRN Reason: Shortness Of Breath Amoxicillin 500 mg PO BID #14 capsule Ipratropium/Albuterol Sulfate [DUONEB *Not for PRN Use*] 1 ampul IH Q6HR #100 ampul.neb Prednisone [predniSONE 10 mg (6-Day Pack, 21 Tabs)] 10 mg PO .TAPER #1 tab.ds.pk Referrals: AAMIR TANNER MD [Staff Physician] - 3-5 Days BETSY PINA MD [Staff Physician] - 3-5 Days (Dr. Pina is a fabric inspector. Please follow-up with him or her primary physician for further evaluation of your pulmonary nodules) AICHA ROOT MD [Staff Physician] - 3-5 Days (Dr. Root is a movie machine operator. Please follow-up with him for further evaluation of the possible hemangioma seen on your liver via CT scan) Time of Disposition: 17:57
[2017-10-05 15:13] LABS: Basophils # (Auto) 0.1 K/mm3 (0.0-0.1); Basophils % (Auto) 0.5 % (0.0-1.8); Eosinophils # (Auto) 0.1 K/mm3 (0.0-0.4); Eosinophils % (Auto) 0.8 % (0.0-4.3); Hematocrit 36.9 % (35.5-45.6); Hemoglobin 12.2 gm/dl (11.8-15.2); Lymphocytes # (Auto) 0.9 K/mm3 (1.2-5.4); Lymphocytes % (Auto) 6.9 % (13.4-35.0); Mean Corpuscular HGB Conc 33 % (32-34); Mean Corpuscular Hemoglobin 30 pg (28-32); Mean Corpuscular Volume 91 fl (84-94); Monocytes # (Auto) 0.7 K/mm3 (0.0-0.8); Monocytes % (Auto) 5.3 % (0.0-7.3); Platelet Count 147 K/mm3 (140-440); Red Blood Count 4.08 M/mm3 (3.65-5.03); Red Cell Distribution Width 15.5 % (13.2-15.2)
--- NOTE | 2017-10-05 15:19 | XRay Report ---
AP CHEST: HISTORY: Shortness of breath The lungs are hyperinflated suggesting underlying emphysema. No evidence for infiltrate, pleural effusion or pneumothorax. Normal heart and mediastinal structures. IMPRESSION: Emphysema. No acute process.
[2017-10-05 15:30] LABS: BUN/Creatinine Ratio 34; Blood Urea Nitrogen 17 mg/dL (9-20); Calcium 9.4 mg/dL (8.4-10.2); Hemolysis Index 4
[2017-10-05 16:40] VITALS: BP 127/63
--- NOTE | 2017-10-05 17:47 | Cat Scan Report ---
FINAL REPORT EXAM: CT ANGIO CHEST HISTORY: shortness of breath TECHNIQUE: CTA of the chest was performed after the administration of intravenous contrast. Reconstructions were included in the coronal and sagittal planes. Rotating MIPS were included. PRIORS: CT of the chest from 07/05/2017. FINDINGS: Pulmonary arteries and thoracic aorta: The study is adequate for diagnostic purposes. No central or segmental pulmonary embolism. The thoracic aorta is normal in caliber. Atherosclerotic calculi are seen in the thoracic aorta. Lungs and airways: No pleural effusion. No airspace consolidation. The airways are patent. Multifocal bronchiectasis and bronchial wall thickening is seen. Unchanged previously seen calcified pleural plaques over the right hemidiaphragm. Small adjacent soft tissue nodule along the superior margin of the pleural plaque is grossly similar measuring 8 x 7 millimeters on series 2, image 122. Unchanged subpleural nodule in the right middle lobe measuring 5 millimeters on series 2, image 102. Probable linear scarring is seen within the anterior aspect of the left lower lobe. Unchanged severe emphysematous changes. Mediastinum, heart, pericardium: Several scattered mildly prominent mediastinal lymph nodes are seen. Coronary artery calculi are again seen. No cardiac chamber enlargement. No pericardial effusion. Thoracic inlet, chest wall, axilla: No chest wall masses. The visualized portions of the thyroid gland demonstrate no focal lesion. No axillary lymphadenopathy. Upper abdomen: A focal hyper attenuating lesion is seen within the right hepatic lobe measuring 9 millimeters which was more difficult to see on the prior study likely secondary to phase of contrast. No other attic lesions are seen. Two simple left renal cysts seen. Bones: Degenerative changes are seen in the spine. IMPRESSION: 1. No central or segmental pulmonary embolism. 2. Grossly similar calcified right lower pleural plaques with adjacent soft tissue nodule which may represent scarring or a pulmonary nodule. Three to six-month follow-up chest CT from the initial chest CT date of 07/05/2017 is recommended. 3. Unchanged 5 millimeter right middle lobe pulmonary nodule. 4. Unchanged severe pulmonary emphysema. 5. Hypoattenuating right hepatic lesion may represent a flash fill hemangioma or other soft tissue neoplasm. If further characterization is needed, recommend dedicated hepatic CT or MRI.
== END 2017-10-05 18:13 | disposition home or self-care (01) ==
LOC: ED 14:07
DX: J44.1 Chronic obstructive pulmonary disease with (acute) exacerbation (principal); K76.9 Liver disease, unspecified; R91.1 Solitary pulmonary nodule; R05 Cough; I10 Essential (primary) hypertension; K52.9 Noninfective gastroenteritis and colitis, unspecified; Z90.49 Acquired absence of other specified parts of digestive tract; Z87.891 Personal history of nicotine dependence
CPT/HCPCS: 36415; 71045; 71275; 80048; 84484; 85025; 85379; 93005; 93010; 94640; 99284; Q9967

== ENCOUNTER 2018-09-29 12:05 | Outpatient (CLI) | payer MEDICARE, OTHER ==
[2018-09-29 12:31] LABS: Hemoglobin 13.4 gm/dl (11.8-15.2); Mean Corpuscular HGB Conc 34 % (32-34); Mean Corpuscular Volume 92 fl (84-94); Platelet Count 185 K/mm3 (140-440); Red Blood Count 4.33 M/mm3 (3.65-5.03); Red Cell Distribution Width 14.2 % (13.2-15.2)
[2018-09-29 12:45] LABS: Alanine Aminotransferase 20 units/L (7-56); Albumin 4.2 g/dL (3.9-5); BUN/Creatinine Ratio 34; Blood Urea Nitrogen 27 mg/dL (9-20); Calcium 9.8 mg/dL (8.4-10.2); Hemolysis Index 7
--- NOTE | 2018-09-29 13:57 | Cat Scan Report ---
CT CHEST WITH CONTRAST INDICATION / CLINICAL INFORMATION: FOLLOW UP ON PLEURAL PLAQUE AND PULMONARY NODULE. TECHNIQUE: Axial CT images were obtained through the chest after Omnipaque 300 100 cc of IV contrast. Sagittal a nd coronal reformatted images. All CT scans at this location are performed using CT dose reduction fo r ALARA by means of automated exposure control. COMPARISON: 02/23/2018. FINDINGS: HEART: Heart size is normal. Mild coronary artery calcifications are noted. No pericardial abnormalit y. THORACIC AORTA: Demond caliber. Mild scattered calcific plaques are identified. No aneurysm, dissecti on or stenosis. MEDIASTINUM and ELO: No significant abnormality. LUNGS: Severe centrilobular emphysematous changes are again identified. No pulmonary nodule is ident ified on today's exam. PLEURA: No significant pleural effusion. No pneumothorax. The previously described calcified pleural plaque at the right lung base appears stable in size and configuration measuring 5.7 x 4.8 cm in axia l plane. No new pleural plaque. SKELETAL SYSTEM: Osteopenia. Mild thoracic spondylosis is stable. No fracture or suspicious bony lesi on. UPPER ABDOMEN: Stable 3.6 cm cyst at the superior pole of the left kidney. ADDITIONAL FINDINGS: None. IMPRESSION: Essentially no change since 02/23/2018. Severe emphysema. Stable calcified plaque of the right hemidi aphragm. The previously described right lower lobe nodule is no longer seen. Signer Name: Tanvir Roman Jr, MD Signed: 09/29/2018 1:52 PM Workstation Name: [id number]
== END 2018-09-29 12:06 | disposition home or self-care (01) ==
LOC: CT 12:05
PROVIDERS: ATTEND Internal Medicine
DX: J43.8 Other emphysema (principal); I25.10 Atherosclerotic heart disease of native coronary artery without angina pectoris; M85.88 Other specified disorders of bone density and structure, other site; M47.814 Spondylosis without myelopathy or radiculopathy, thoracic region; I10 Essential (primary) hypertension; K21.9 Gastro-esophageal reflux disease without esophagitis
CPT/HCPCS: 36415; 71260; 80053; 85027; Q9967

== ENCOUNTER 2018-12-30 21:32 | Emergency (ER) | payer MEDICARE, OTHER ==
--- NOTE | 2018-12-30 22:18 | Event Note ---
ED Screening Note Date of service: 12/30/18 Time: 22:15 ED Screening Note: Pt complains of low heart rate x today. States HR as low as 42 today. Denies CP. chornically on home ixygen 2L-hx of COPD. Denies new meds, hx of afib, or hx of bradycardia This initial assessment/diagnostic orders/clinical plan/treatment(s) is/are subject to change based on patients health status, clinical progression and re- assessment by fellow clinical providers in the ED. Further treatment and workup at subsequent clinical providers discretion. Patient/guardian urged not to elope from the ED as their condition may be serious if not clinically assessed and managed. Initial orders include: labs CXR ECG
[2018-12-30 23:25] LABS: Basophils # (Auto) 0.2 K/mm3 (0.0-0.1); Basophils % (Auto) 2.3 % (0.0-1.8); Eosinophils # (Auto) 0.3 K/mm3 (0.0-0.4); Eosinophils % (Auto) 3.6 % (0.0-4.3); Hematocrit 39.9 % (35.5-45.6); Hemoglobin 13.2 gm/dl (11.8-15.2); Lymphocytes % (Auto) 26.1 % (13.4-35.0); Mean Corpuscular HGB Conc 33 % (32-34); Mean Corpuscular Volume 92 fl (84-94); Monocytes # (Auto) 0.6 K/mm3 (0.0-0.8); Monocytes % (Auto) 8.4 % (0.0-7.3); Platelet Count 171 K/mm3 (140-440); Red Blood Count 4.36 M/mm3 (3.65-5.03); Red Cell Distribution Width 14.4 % (13.2-15.2)
--- NOTE | 2018-12-30 23:25 | XRay Report ---
CHEST 2 VIEWS INDICATION / CLINICAL INFORMATION: low heart rate. COMPARISON: None available. FINDINGS: SUPPORT DEVICES: None. HEART / MEDIASTINUM: No significant abnormality. LUNGS / PLEURA: Lungs are hyperexpanded with emphysematous change. No evidence of pneumothorax. Signer Name: Malcolm Whiteside MD Signed: 12/30/2018 11:21 PM Workstation Name: [id number]
[2018-12-30 23:40] LABS: BUN/Creatinine Ratio 29; Blood Urea Nitrogen 23 mg/dL (9-20); Calcium 9.7 mg/dL (8.4-10.2); Hemolysis Index 2
[2018-12-31] MEDS ORDERED: DELTASONE PO ONE (04:27)
[2018-12-31] MEDS ORDERED: DUONEB *Not for PRN Use IH ONE (04:27)
--- NOTE | 2018-12-31 06:05 | Emergency Department Report ---
HPI - General Chief Complaint: Arrhythmia/Palpitations Time Seen by Provider: 12/31/18 04:10 - HPI HPI: 78-year-old male presents to the emergency department to be evaluated regarding some low heart rate but he noticed. The patient has a history of emphysema and says that he uses a Combivent inhaler multiple times per day. When he does so, he usually checks his pulse ox and found his heart rate to be in the 40s. He then used his blood pressure cuff and a different pulse oximeter any chest heart rate was in the 40s. This was concerning to him so he came in for further evaluation. He denies any chest pain, shortness of breath, palpitat ions or any other new or acute physical complaints. He has oxygen dependent at home. He has a past mental history of hypertension, macular degeneration and GERD. His primary care physician is Dr. Hurst and his library media assistant is Dr. Flores. ED Past Medical Hx - Past Medical History Previous Medical History?: Yes Hx Hypertension: Yes Hx GERD: Yes Hx COPD: Yes (O2 at home) Additional medical history: Macular degeneration. SBO. hernia (doesn't remember what type). emphysema - Surgical History Hx Appendectomy: Yes Additional Surgical History: BLOOD CLOTS BEHIND RIGHT EYE REMOVED. CATARACT SURGERY BOTH EYES REMOVED. HERNIA REPAIR - Social History Smoking Status: Current Every Day Smoker Substance Use Type: None - Medications Home Medications: Home Medications Medication Instructions Recorded Confirmed Last Taken Type raNITIdine HCl [Zantac] 150 mg PO DAILY 07/01/17 10/05/17 Unknown History levoFLOXacin [Levaquin TAB] 750 mg PO QDAY #7 tablet 07/04/17 10/05/17 Unknown Rx methylPREDNISolone [Medrol Dose 4 mg PO DAILY #1 pack 07/04/17 10/05/17 Unknown Rx Kian] Glimepiride 1 mg PO QDAY #30 tablet 07/07/17 10/05/17 Unknown Rx Ipratropium/Albuter (Nf) 2 puff IH QID #1 inha 07/07/17 10/05/17 Unknown Rx [Combivent Inhaler] ALBUTEROL Inhaler (OR & NICU) 2 puff IH QID PRN #1 inhalation 10/05/17 Unknown Rx [ProAir HFA Inhaler] Amoxicillin 500 mg PO BID #14 capsule 07/24/18 Unknown Rx Ipratropium/Albuterol Sulfate 1 ampul IH Q6HR #100 ampul.neb 10/05/17 Unknown Rx [DUONEB *Not for PRN Use*] Prednisone [predniSONE 10 mg 10 mg PO .TAPER #1 tab.ds.pk 10/05/17 Unknown Rx (6-Day Pack, 21 Tabs)] ED Review of Systems ROS: Stated complaint: BREATHING Other details as noted in HPI Comment: All other systems reviewed and negative Constitutional: denies: chills, fever Respiratory: denies: cough, shortness of breath Cardiovascular: denies: chest pain, palpitations Gastrointestinal: denies: abdominal pain, vomiting Genitourinary: denies: dysuria, discharge Musculoskeletal: denies: back pain, arthralgia Neurological: denies: headache, weakness Physical Exam - Physical Exam Vital Signs: Vital Signs 12/30/18 12/31/18 12/31/18 21:36 03:53 04:35 Temperature 97.3 F L 98 F 97.6 F Pulse Rate 59 L 85 94 H Pulse Rate [ Anterior] Respiratory 18 19 24 Rate Respiratory Rate [Anterior] Blood Pressure 191/72 Blood Pressure 102/69 160/80 [Right] O2 Sat by Pulse 94 95 100 Oximetry 12/31/18 04:50 Temperature Pulse Rate Pulse Rate [ 74 Anterior] Respiratory Rate Respiratory 18 Rate [Anterior] Blood Pressure Blood Pressure [Right] O2 Sat by Pulse Oximetry Physical Exam: GENERAL: The patient is well-developed well-nourished. HENT: Normocephalic. Atraumatic. Patient has moist mucous membranes. EYES: Extraocular motions are intact. Pupils equal reactive to light bilaterally. NECK: Supple. Trachea is midline. CHEST/LUNGS: Mild wheezing throughout the chest. No tachypnea or accessory muscle use. There is no respiratory distress noted. HEART/CARDIOVASCULAR: Regular. There is no tachycardia. There is no murmur. ABDOMEN: Abdomen is soft, nontender. Patient has normal bowel sounds. There is no abdominal distention. SKIN: Skin is warm and dry. NEURO: The patient is awake, alert, and oriented. The patient is cooperative. The patient has no focal neurologic deficits. Normal speech. MUSCULOSKELETAL: There is no tenderness or deformity. There is no evidence of acute injury. ED Course Vital Signs 12/30/18 12/31/18 12/31/18 21:36 03:53 04:35 Temperature 97.3 F L 98 F 97.6 F Pulse Rate 59 L 85 94 H Pulse Rate [ Anterior] Respiratory 18 19 24 Rate Respiratory Rate [Anterior] Blood Pressure 191/72 Blood Pressure 102/69 160/80 [Right] O2 Sat by Pulse 94 95 100 Oximetry 12/31/18 04:50 Temperature Pulse Rate Pulse Rate [ 74 Anterior] Respiratory Rate Respiratory 18 Rate [Anterior] Blood Pressure Blood Pressure [Right] O2 Sat by Pulse Oximetry ED Medical Decision Making - Lab Data Result diagrams: 12/30/18 22:56 12/30/18 22:56 - EKG Data -: EKG Interpreted by Me EKG shows normal: sinus rhythm (with PVCs), axis, intervals, QRS complexes (RBBB), ST-T waves Rate: normal - EKG Data When compared to previous EKG there are: no significant change Interpretation: unchanged when compared t (10/05/17) - Radiology Data Radiology results: image reviewed interpreted by me: Chest x-ray appears consistent with COPD/emphysema. No pneumonia, pneumothorax or pleural effusions. - Medical Decision Making This patient presents to the emergency department with complaint of having a low heart rate. However the patient only noticed because he was using a pulse oximeter, as he does when he uses his inhaler, but he denies any chest pain, palpitations, shortness of breath or any other physical complaints. One of his vitals checks did show some mild bradycardia but overall his heart rate has been within the normal range. Chest x-ray did not show any acute process. He had some mild wheezing, with his history of COPD, so he was given a breathing treatment and a dose of steroids. EKG did not show any signs of ST elevation VA or dysrhythmia. Patient will be discharged home to follow up with primary care, pulmonology and will return to the ER with any worsening of his symptoms or any acute distress. - Differential Diagnosis dysrhythmia, hypoglycemia, hypothyroidism Critical Care Time: No Critical care attestation.: If time is entered above; I have spent that time in minutes in the direct care of this critically ill patient, excluding procedure time. ED Disposition Clinical Impression: Hypertension Qualifiers: Hypertension type: essential hypertension Qualified Code(s): I10 - Essential (primary) hypertension COPD (chronic obstructive pulmonary disease) Qualifiers: COPD type: unspecified COPD Qualified Code(s): J44.9 - Chronic obstructive pulmonary disease, unspecified Disposition: TO HOME OR SELFCARE Is pt being admited?: No Condition: Stable Instructions: Chronic Obstructive Pulmonary Disease (ED), Hypertension (ED) Additional Instructions: Please follow-up with your primary care physician and library media assistant. Return to the emergency department with any worsening of your symptoms, or with any acute distress. Referrals: AAMIR TANNER MD [Primary Care Provider] - 2-3 Days BETSY GONZALEZ MD [Staff Physician] - 2-3 Days Time of Disposition: 06:05
[2018-12-31 06:26] VITALS: BP 126/75
== END 2018-12-31 06:20 | disposition home or self-care (01) ==
LOC: ED 21:32
DX: J44.9 Chronic obstructive pulmonary disease, unspecified (principal); I10 Essential (primary) hypertension; K21.9 Gastro-esophageal reflux disease without esophagitis; F17.200 Nicotine dependence, unspecified, uncomplicated; Z90.49 Acquired absence of other specified parts of digestive tract; Z98.890 Other specified postprocedural states; Z79.899 Other long term (current) drug therapy
CPT/HCPCS: 36415; 71046; 80048; 84443; 84484; 85025; 93005; 93010; 94640; 99283; J7512; 94644

== ENCOUNTER 2019-01-01 23:23 | Observation (INO) | payer MEDICARE, OTHER ==
--- NOTE | 2019-01-02 00:20 | XRay Report ---
CHEST 1 VIEW INDICATION / CLINICAL INFORMATION: Chest Pain. COMPARISON: None available. FINDINGS: SUPPORT DEVICES: None. HEART / MEDIASTINUM: No significant abnormality. LUNGS / PLEURA: Hyperexpanded lungs secondary to emphysema. No airspace disease. Pleural calcificatio ns noted along the lung bases bilaterally. Signer Name: Malcolm Whiteside MD Signed: 01/02/2019 12:15 AM Workstation Name: [email or web address]
[2019-01-02 00:29] LABS: Basophils # (Auto) 0.2 K/mm3 (0.0-0.1); Basophils % (Auto) 2.6 % (0.0-1.8); Eosinophils # (Auto) 0.3 K/mm3 (0.0-0.4); Eosinophils % (Auto) 3.7 % (0.0-4.3); Hematocrit 37.7 % (35.5-45.6); Hemoglobin 12.6 gm/dl (11.8-15.2); Lymphocytes # (Auto) 2.3 K/mm3 (1.2-5.4); Lymphocytes % (Auto) 28.2 % (13.4-35.0); Mean Corpuscular HGB Conc 34 % (32-34); Mean Corpuscular Volume 91 fl (84-94); Monocytes # (Auto) 0.7 K/mm3 (0.0-0.8); Monocytes % (Auto) 8.4 % (0.0-7.3); Platelet Count 167 K/mm3 (140-440); Red Blood Count 4.13 M/mm3 (3.65-5.03); Red Cell Distribution Width 14.7 % (13.2-15.2)
[2019-01-02 00:49] LABS: BUN/Creatinine Ratio 36; Blood Urea Nitrogen 32 mg/dL (9-20); Calcium 9.5 mg/dL (8.4-10.2); Hemolysis Index 6
[2019-01-02 01:24] LABS: INR 0.96 (0.87-1.13)
[2019-01-02 01:25] LABS: Partial Thromboplastin Time 32.4 Sec. (24.2-36.6)
--- NOTE | 2019-01-02 01:26 | Cat Scan Report ---
CT head without contrast INDICATION : Left-sided facial numbness. TECHNIQUE: Axial imaging performed from the skull apex through the skull base without the use of con trast. All CT examinations performed at this facility utilize dose modulation, iterative reconstruct ion or weight-based dosing, when appropriate, to reduce radiation dose to as low as reasonably achiev able. COMPARISON: None FINDINGS: No acute intracranial hemorrhage or parenchymal abnormality. There is prominent encephalom alacia throughout the right temporal lobe with some asymmetric dilatation of the right temporal horn, suggesting chronicity. No extra-axial collection is identified. No acute intracranial infarct is geoffrey reciated. The orbits are unremarkable. The paranasal sinuses are clear. IMPRESSION: No acute intracranial hemorrhage. 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 Signer Name: Malcolm Whiteside MD Signed: 01/02/2019 1:21 AM Workstation Name: [id number]
--- NOTE | 2019-01-02 01:37 | Emergency Department Report ---
ED General Adult HPI - General Chief complaint: Chest Pain Stated complaint: FACE NUMBNESS, CHEST PAIN Time Seen by Provider: 01/02/19 00:30 Source: patient Mode of arrival: Ambulatory Limitations: Other - History of Present Illness Initial comments: pt is a 78 yo male who presents to the ED with c/o left sided facial numbness that began tonight around 9 PM. he states also at the same time he began have left sided chest tightness. he denies any fever, cough, LE edema, chills, nausea, vomiting, diaphoresis, any other symptoms. he states that his breathing feels at baseline. he has a hx of COPD and is on 2L home oxygen. he denies any cardiac hx. he last had a stress test in 2016 which was normal. he states he is a former smoker quit 11 years ago. - Related Data Home Medications Medication Instructions Recorded Confirmed Last Taken raNITIdine HCl [Zantac] 150 mg PO DAILY 07/01/17 01/02/19 Unknown Previous Rx's Medication Instructions Recorded Last Taken Type levoFLOXacin [Levaquin TAB] 750 mg PO QDAY #7 tablet 07/04/17 Unknown Rx methylPREDNISolone [Medrol Dose 4 mg PO DAILY #1 pack 07/04/17 Unknown Rx Kian] Glimepiride 1 mg PO QDAY #30 tablet 07/07/17 Unknown Rx Ipratropium/Albuter (Nf) 2 puff IH QID #1 inha 07/07/17 Unknown Rx [Combivent Inhaler] ALBUTEROL Inhaler (OR & NICU) 2 puff IH QID PRN #1 inhalation 10/05/17 Unknown Rx [ProAir HFA Inhaler] Amoxicillin 500 mg PO BID #14 capsule 10/05/17 Unknown Rx Ipratropium/Albuterol Sulfate 1 ampul IH Q6HR #100 ampul.neb 10/05/17 Unknown Rx [DUONEB *Not for PRN Use*] Prednisone [predniSONE 10 mg 10 mg PO .TAPER #1 tab.ds.pk 10/05/17 Unknown Rx (6-Day Pack, 21 Tabs)] Allergies Allergy/AdvReac Type Severity Reaction Status Date / Time No Known Allergies Allergy Verified 03/29/16 15:03 ED Review of Systems ROS: Stated complaint: FACE NUMBNESS, CHEST PAIN Other details as noted in HPI Comment: All other systems reviewed and negative ED Past Medical Hx - Past Medical History Previous Medical History?: Yes Hx Hypertension: Yes Hx GERD: Yes Hx COPD: Yes (O2 at home) Additional medical history: Macular degeneration. SBO. hernia (doesn't remember what type). emphysema - Surgical History Past Surgical History?: Yes Hx Appendectomy: Yes Additional Surgical History: BLOOD CLOTS BEHIND RIGHT EYE REMOVED. CATARACT SURGERY BOTH EYES REMOVED. HERNIA REPAIR - Social History Smoking Status: Former Smoker - Medications Home Medications: Home Medications Medication Instructions Recorded Confirmed Last Taken Type raNITIdine HCl [Zantac] 150 mg PO DAILY 07/01/17 01/02/19 Unknown History levoFLOXacin [Levaquin TAB] 750 mg PO QDAY #7 tablet 07/04/17 01/02/19 Unknown Rx methylPREDNISolone [Medrol Dose 4 mg PO DAILY #1 pack 07/04/17 01/02/19 Unknown Rx Kian] Glimepiride 1 mg PO QDAY #30 tablet 07/07/17 01/02/19 Unknown Rx Ipratropium/Albuter (Nf) 2 puff IH QID #1 inha 07/07/17 01/02/19 Unknown Rx [Combivent Inhaler] ALBUTEROL Inhaler (OR & NICU) 2 puff IH QID PRN #1 inhalation 10/05/17 01/02/19 Unknown Rx [ProAir HFA Inhaler] Amoxicillin 500 mg PO BID #14 capsule 10/05/17 01/02/19 Unknown Rx Ipratropium/Albuterol Sulfate 1 ampul IH Q6HR #100 ampul.neb 10/05/17 01/02/19 Unknown Rx [DUONEB *Not for PRN Use*] Prednisone [predniSONE 10 mg 10 mg PO .TAPER #1 tab.ds.pk 10/05/17 01/02/19 Unknown Rx (6-Day Pack, 21 Tabs)] ED Physical Exam - General Limitations: Other General appearance: alert, in no apparent distress - Head Head exam: Present: atraumatic, normocephalic - Eye Eye exam: Present: normal appearance - ENT ENT exam: Present: mucous membranes moist - Respiratory Respiratory exam: Present: normal lung sounds bilaterally. Absent: respiratory distress, wheezes, rales, rhonchi, stridor, chest wall tenderness, accessory muscle use, decreased breath sounds, prolonged expiratory - Cardiovascular Cardiovascular Exam: Present: regular rate, normal rhythm, normal heart sounds. Absent: systolic murmur, diastolic murmur, rubs, gallop - Neurological Exam Neurological exam: Present: alert, oriented X3, CN II-XII intact, other (normal sensation and motor to the face, no focal neuro deficits). Absent: motor sensory deficit - Psychiatric Psychiatric exam: Present: normal affect, normal mood - Skin Skin exam: Present: warm, dry, intact ED Course Vital Signs 01/01/19 01/02/19 01/02/19 23:41 00:39 00:40 Temperature 97.7 F Pulse Rate 57 L 102 H 100 H Respiratory 22 20 21 Rate Blood Pressure 170/59 146/81 O2 Sat by Pulse 97 97 98 Oximetry 01/02/19 01/02/19 01/02/19 00:41 00:43 00:45 Temperature Pulse Rate 103 H 98 H Respiratory 20 26 H 19 Rate Blood Pressure 146/81 146/81 126/71 O2 Sat by Pulse 98 98 96 Oximetry 01/02/19 01/02/19 01/02/19 01:01 01:15 01:30 Temperature Pulse Rate 103 H 102 H Respiratory 22 18 Rate Blood Pressure 126/71 136/79 149/69 O2 Sat by Pulse 97 96 Oximetry 01/02/19 01/02/19 01/02/19 01:45 02:07 02:15 Temperature Pulse Rate 91 H 104 H Respiratory 21 16 Rate Blood Pressure 132/73 132/73 135/79 O2 Sat by Pulse 97 99 97 Oximetry 01/02/19 01/02/19 01/02/19 02:30 02:45 03:00 Temperature Pulse Rate 102 H 97 H 97 H Respiratory 19 21 19 Rate Blood Pressure 138/90 141/79 150/81 O2 Sat by Pulse 99 98 96 Oximetry 01/02/19 01/02/19 01/02/19 03:15 03:30 03:41 Temperature Pulse Rate 93 H 80 Respiratory 24 22 Rate Blood Pressure 150/81 160/76 160/76 O2 Sat by Pulse 91 96 99 Oximetry 01/02/19 01/02/19 01/02/19 03:51 04:00 04:11 Temperature Pulse Rate 87 78 77 Respiratory 19 21 24 Rate Blood Pressure 150/81 136/64 136/64 O2 Sat by Pulse 98 97 98 Oximetry 01/02/19 04:21 Temperature Pulse Rate 89 Respiratory 25 H Rate Blood Pressure 138/64 O2 Sat by Pulse 100 Oximetry - Consultations Consultation #1: 01/02/19 02:[address] Raines, hospitalist who will accept and resume care of patient, will admit to hospital, advised to write admit orders to telemetry ED Medical Decision Making - Lab Data Result diagrams: 01/02/19 00:07 01/02/19 00:07 Lab Results 01/02/19 01/02/19 01/02/19 Range/Units 00:07 00:07 00:59 WBC 8.1 (4.5-11.0) K/mm3 RBC 4.13 (3.65-5.03) M/mm3 Hgb 12.6 (11.8-15.2) gm/dl Hct 37.7 (35.5-45.6) % MCV 91 (84-94) fl MCH 31 (28-32) pg MCHC 34 (32-34) % RDW 14.7 (13.2-15.2) % Plt Count 167 (140-440) K/mm3 Lymph % (Auto) 28.2 (13.4-35.0) % [place] % (Auto) 8.4 H (0.0-7.3) % Eos % (Auto) 3.7 (0.0-4.3) % Baso % (Auto) 2.6 H (0.0-1.8) % Lymph # 2.3 (1.2-5.4) K/mm3 [place] # 0.7 (0.0-0.8) K/mm3 Eos # 0.3 (0.0-0.4) K/mm3 Baso # 0.2 H (0.0-0.1) K/mm3 Seg Neutrophils % 57.1 (40.0-70.0) % Seg Neutrophils # 4.6 (1.8-7.7) K/mm3 PT 12.5 (12.2-14.9) Sec. INR 0.96 (0.87-1.13) APTT 32.4 (24.2-36.6) Sec. D-Dimer 135.00 (0-234) ng/mlDDU Sodium 145 (137-145) mmol/L Potassium 4.9 (3.6-5.0) mmol/L Chloride 98.2 (98-107) mmol/L Carbon Dioxide 33 H (22-30) mmol/L Anion Gap 19 mmol/L BUN 32 H (9-20) mg/dL Creatinine 0.9 (0.8-1.5) mg/dL Estimated GFR > 60 ml/min BUN/Creatinine Ratio 36 % Glucose 102 H (75-100) mg/dL Calcium 9.5 (8.4-10.2) mg/dL Phosphorus (2.5-4.5) mg/dL Magnesium (1.7-2.3) mg/dL Troponin T < 0.010 (0.00-0.029) ng/mL 01/02/19 01/02/19 Range/Units 00:59 02:27 WBC (4.5-11.0) K/mm3 RBC (3.65-5.03) M/mm3 Hgb (11.8-15.2) gm/dl Hct (35.5-45.6) % MCV (84-94) fl MCH (28-32) pg MCHC (32-34) % RDW (13.2-15.2) % Plt Count (140-440) K/mm3 Lymph % (Auto) (13.4-35.0) % [place] % (Auto) (0.0-7.3) % Eos % (Auto) (0.0-4.3) % Baso % (Auto) (0.0-1.8) % Lymph # (1.2-5.4) K/mm3 [place] # (0.0-0.8) K/mm3 Eos # (0.0-0.4) K/mm3 Baso # (0.0-0.1) K/mm3 Seg Neutrophils % (40.0-70.0) % Seg Neutrophils # (1.8-7.7) K/mm3 PT (12.2-14.9) Sec. INR (0.87-1.13) APTT (24.2-36.6) Sec. D-Dimer (0-234) ng/mlDDU Sodium (137-145) mmol/L Potassium (3.6-5.0) mmol/L Chloride (98-107) mmol/L Carbon Dioxide (22-30) mmol/L Anion Gap mmol/L BUN (9-20) mg/dL Creatinine (0.8-1.5) mg/dL Estimated GFR ml/min BUN/Creatinine Ratio % Glucose (75-100) mg/dL Calcium (8.4-10.2) mg/dL Phosphorus 3.50 (2.5-4.5) mg/dL Magnesium 2.60 H (1.7-2.3) mg/dL Troponin T < 0.010 (0.00-0.029) ng/mL - Radiology Data Radiology results: report reviewed CT head without contrast INDICATION : Left-sided facial numbness. TECHNIQUE: Axial imaging performed from the skull apex through the skull base without the use of contrast. All CT examinations performed at this facility utilize dose modulation, iterative reconstruction or weight-based dosing, when appropriate, to reduce radiation dose to as low as reasonably achievable. COMPARISON: None FINDINGS: No acute intracranial hemorrhage or parenchymal abnormality. There is prominent encephalomalacia throughout the right temporal lobe with some asymmetric dilatation of the right temporal horn, suggesting chronicity. No extra-axial collection is identified. No acute intracranial infarct is appreciated. The orbits are unremarkable. The paranasal sinuses are clear. IMPRESSION: No acute intracranial hemorrhage. 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 Signer Name: Malcolm Whiteside MD Signed: 01/02/2019 1:21 AM Workstation Name: [id number] Transcribed By: DENISE Dictated By: Malcolm Whiteside MD Electronically Authenticated By: Malcolm Whiteside MD Signed Date/Time: 01/02/19 0121 CHEST 1 VIEW INDICATION / CLINICAL INFORMATION: Chest Pain. COMPARISON: None available. FINDINGS: SUPPORT DEVICES: None. HEART / MEDIASTINUM: No significant abnormality. LUNGS / PLEURA: Hyperexpanded lungs secondary to emphysema. No airspace disease. Pleural calcifications noted along the lung bases bilaterally. Signer Name: Malcolm Whiteside MD Signed: 01/02/2019 12:15 AM Workstation Name: [id number] Transcribed By: DENISE Dictated By: Malcolm Whiteside MD Electronically Authenticated By: Malcolm Whiteside MD Signed Date/Time: 01/02/19 0015 - Medical Decision Making pt is a 78 yo male who presents to the ED with c/o left sided facial numbness that began tonight around 9 PM. he states also at the same time he began have left sided chest tightness. he denies any fever, cough, LE edema, chills, nausea, vomiting, diaphoresis, any other symptoms. he states that his breathing feels at baseline. he has a hx of COPD and is on 2L home oxygen. he denies any cardiac hx. he last had a stress test in 2016 which was normal. he states he is a former smoker quit 11 years ago. no focal neuro deficits. labs are stable. trop negative x2. d-dimer is negative. CXR: Hyperexpanded lungs secondary to emphysema. No airspace disease. Pleural calcifications noted along the lung bases bilaterally. CT head: No acute intracranial hemorrhage. 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 Spok e with Dr. Urias who agreed with admission of the patient. Patient admitted for further evaluation of his chest pain and his symptom of left facial numbness. Spoke to Dr. Raines, hospitalist who will accept and resume care of patient, will admit to hospital, advised to write admit orders to telemetry. pt admitted to the hospital. - Differential Diagnosis ACS, PE, COPD, CHF, valve dysfunction, CVA, TIA, SDH, SAH, mass Critical care attestation.: If time is entered above; I have spent that time in minutes in the direct care of this critically ill patient, excluding procedure time. ED Disposition Clinical Impression: Numbness and tingling of left side of face Chest pain Qualifiers: Chest pain type: unspecified Qualified Code(s): R07.9 - Chest pain, unspecified Disposition: OP ADMIT IP TO THIS HOSP Is pt being admited?: Yes Does the pt Need Aspirin: Yes Condition: Fair Time of Disposition: 02:03
[2019-01-02] MEDS ORDERED: BABY ASPIRIN PO ONE (02:03)
[2019-01-02] MEDS ORDERED: MORPHINE IV PRN (02:44)
[2019-01-02] MEDS ORDERED: NITROSTAT SL PRN (02:44)
[2019-01-02] MEDS ORDERED: ZOFRAN IV PRN (02:45)
[2019-01-02] MEDS ORDERED: TYLENOL PO PRN (02:45)
--- NOTE | 2019-01-02 04:28 | History and Physical Report ---
CHIEF COMPLAINT: Numbness on the left side of the face. OTHER COMPLAINT: Includes chest pain. HISTORY OF PRESENT ILLNESS: The patient is an 78-year-old male who said he started feeling numbness on the left side of the face last night and was worried about it and at the same time he said he started feeling tightness in the chest and denied any radiation of chest pain and said the pain is in the precordial area. Pain was not associated with shortness of breath, diaphoresis, nausea or vomiting and the patient said his numbness on the face got a little better after some time and denied any weakness of the limbs or any impairment of speech. There was also no history of visual impairment. The patient also denied history of cough and fever. PAST MEDICAL HISTORY: Pertinent for hypertension, gastroesophageal reflux disease, COPD with home O2 dependent, macular degeneration, small-bowel obstruction, emphysema. PAST SURGICAL HISTORY: Pertinent for appendectomy, removal of blood clot from behind the right eye. Also, the patient has past surgical history of cataract surgery in both eyes and hernia repair. SOCIAL HISTORY: The patient is a former cigarette smoker, quit about 11 years ago. Does not drink alcohol and does not use illicit drugs. FAMILY HISTORY: Noncontributory. MEDICATIONS: The patient is on the following medications, Zantac 150 mg by mouth daily, Levaquin 250 mg by mouth daily, Medrol Dosepak 4 mg according to the instruction, glimepiride 1 mg by mouth daily, Combivent inhaler 2 puffs by inhalation q.i.d. Also, the patient is on Duo nebulizer every 6 hours and on prednisone Dosepak. ALLERGIES: There are no known drug allergies. REVIEW OF SYSTEMS: CONSTITUTIONAL: There is no fever, no chills, no diaphoresis. HEENT: There is no headache or sore throat. CARDIOVASCULAR SYSTEM: Chest pain is present. No orthopnea. RESPIRATORY SYSTEM: There is no shortness of breath or cough. GASTROINTESTINAL SYSTEM: There is no nausea, no vomiting, no abdominal pain, diarrhea or constipation. NEUROLOGICAL SYSTEM: Numbness on the left side of the face noted. No weakness of the limbs. No speech impairment. No blurry vision. MUSCULOSKELETAL SYSTEM: There is no joint pain or swelling. DERMATOLOGICAL SYSTEM: There is no skin rash or itching. GENITOURINARY SYSTEM: There is no dysuria, hematuria, or flank pain. Rest of system review is normal. PHYSICAL EXAMINATION: GENERAL: At the time of exam, the patient was found to be alert, oriented x 3 and not in acute distress. VITAL SIGNS: At the initial time of presentation showed temperature of 97.7 degrees Fahrenheit, pulse of 57, respirations 22, blood pressure 170/59, O2 sat of 97% on room air. HEENT: Showed pupils to be equal, round, reactive to light and accommodating. Extraocular muscles are intact. NECK: Supple with no JVD or carotid bruit. CARDIOVASCULAR SYSTEM: Showed normal first and second heart sounds with no gallops or murmurs. RESPIRATORY SYSTEM: Showed good air entry on both sides of the lungs with no abnormal breath sounds. GASTROINTESTINAL SYSTEM: Show abdomen to be full, soft, nontender with no organomegaly or rigidity. NEUROLOGIC: Shows no focal deficit. MUSCULOSKELETAL SYSTEM: Show no joint swelling or tenderness. DERMATOLOGICAL SYSTEM: Showed no skin rash. GENITOURINARY SYSTEM: Show no costovertebral angle tenderness. PERTINENT LABORATORY AND IMAGING STUDIES: The patient has CT of the head without contrast done that shows no acute intracranial hemorrhage. There is finding of chronic-appearing encephalomalacia of the right temporoparietal region and especially the right temporal lobe, which the radiologist said could be from prior right middle cerebral artery distribution infarct. Chest x-ray, the patient had chest x-ray done that shows hyperexpanded lungs secondary to emphysema with no airspace disease found. Both pleural calcifications were noted along the lung bases bilaterally. Lab results, the patient has CBC done, which came back unremarkable except for CBC differential with elevated monocyte count of 8.4% and elevated basophil count of 2.6% and the patient coagulations studies were unremarkable. The patient's chemistry was unremarkable. DIAGNOSES: 1. Facial numbness. 2. Chest pain. PLAN OF CARE: 1. The patient will be admitted to telemetry. 2. The patient will have cardiac enzymes involving troponin, total CK, and CK-MB checked serially every 6 hours x 2 more levels. 3. The patient will be n.p.o. and will have Lexiscan stress test done this morning. 4. The patient will have MRI of the brain without contrast done this morning because of numbness on the left side of the face. 5. The patient will have Neurology consult with Dr. Dixon Cabello this morning because of the numbness to the left side of the face. 6. The patient will be on aspirin 325 mg by mouth daily and will be on Tylenol 650 mg by mouth every 4 hours for fever and headache. 7. The patient will be on IV morphine 2 mg every 3 hours as needed for pain and IV Zofran 4 mg every 8 hours as needed for nausea and vomiting. 8. The patient will be on nitro paste half inch to anterior chest wall q.i.d. and Nitrostat 0.4 mg every 5 minutes as needed for breakthrough chest pain. 9. The patient will be on oxygen by nasal cannula 2 liters per minute. 10. The patient will be on sequential compressive device for DVT prophylaxis. JOB# [id number] OCN/NTS
[2019-01-02] MEDS: NITRO-BID 2% TP SCH ×5 (07:45→19:18)
[2019-01-02] MEDS ORDERED: LEXISCAN IV ONE ×2 (08:14→08:23)
[2019-01-02] MEDS: ASPIRIN PO SCH (10:46)
[2019-01-02 13:25] LABS: Chol/HDL Ratio 3.62 %
[2019-01-02 13:57] LABS: Creatine Kinase MB 3.4 ng/mL (0.0-4.0)
--- NOTE | 2019-01-02 15:21 | Event Note ---
Date: 01/02/19 Patient seen and examined Patient with history of COPD, chronic respiratory failure on 2 L nasal cannula at home Admitted with the chest pain and stroke like symptoms Stress test this morning was normal CT head showed no acute infarct MRI of the brain, 2-D echocardiogram pending Patient now asymptomatic Possible discharge tomorrow if the radiological study is normal
--- NOTE | 2019-01-02 18:33 | Consultation ---
History of Present Illness Consult date: 01/02/19 Reason for Consult: Left facial numbness Chief complaint: Left facial numbness History of present illness: Patient is an 78 y/o man w/ a h/o HTN, COPD, GERD, macular degneration. He p/w left facial numbness, which began yesterday evening, and lasted for about 2 hours before resolving. He also experienced chest tightness along with these symptoms. Patient lives alone at home. 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 He does not note any significant residual symptoms from that TBI. Past History Past Medical History: other (HTN, COPD, GERD, macular degneration, TBI) Social history: Lives alone Family history: no significant family history Medications and Allergies Allergies Allergy/AdvReac Type Severity Reaction Status Date / Time No Known Allergies Allergy Verified 03/29/16 15:03 Home Medications Medication Instructions Recorded Confirmed Last Taken Type raNITIdine HCl [Zantac] 150 mg PO DAILY 07/01/17 01/02/19 Unknown History levoFLOXacin [Levaquin TAB] 750 mg PO QDAY #7 tablet 07/04/17 01/02/19 Unknown Rx methylPREDNISolone [Medrol Dose 4 mg PO DAILY #1 pack 07/04/17 01/02/19 Unknown Rx Kian] Glimepiride 1 mg PO QDAY #30 tablet 07/07/17 01/02/19 Unknown Rx Ipratropium/Albuter (Nf) 2 puff IH QID #1 inha 07/07/17 01/02/19 Unknown Rx [Combivent Inhaler] ALBUTEROL Inhaler (OR & NICU) 2 puff IH QID PRN #1 inhalation 10/05/17 01/02/19 Unknown Rx [ProAir HFA Inhaler] Amoxicillin 500 mg PO BID #14 capsule 10/05/17 01/02/19 Unknown Rx Ipratropium/Albuterol Sulfate 1 ampul IH Q6HR #100 ampul.neb 10/05/17 01/02/19 Unknown Rx [DUONEB *Not for PRN Use*] Prednisone [predniSONE 10 mg 10 mg PO .TAPER #1 tab.ds.pk 10/05/17 01/02/19 Unknown Rx (6-Day Pack, 21 Tabs)] Active Meds: Active Medications Acetaminophen (Tylenol) 650 mg PO Q4H PRN PRN Reason: Headache Albuterol/Ipratropium (Duoneb *Not For Prn Use*) 1 ampul IH Q6HR [facility] Aspirin (Aspirin) 325 mg PO QDAY [facility] Last Admin: 01/02/19 10:46 Dose: Not Given Documented by: Atorvastatin Calcium (Lipitor) 40 mg PO QHS [facility] Enoxaparin Sodium (Lovenox) 40 mg SUB-Q QDAY@2200 [facility] Morphine Sulfate (Morphine) 2 mg IV Q3H PRN PRN Reason: Pain, Moderate (4-6) Nitroglycerin (Nitro-Bid 2%) 0.5 inch TP QIDNTG [facility]; Protocol Last Admin: 01/02/19 14:02 Dose: 0.5 inch Documented by: Nitroglycerin (Nitrostat) 0.4 mg SL .Q5MIN PRN PRN Reason: Chest Pain Ondansetron HCl (Zofran) 4 mg IV Q8H PRN PRN Reason: Nausea And Vomiting Review of Systems All systems: negative Cardiovascular: chest pain Neurological: numbness Physical Examination - Vital Signs Vital Signs: Vital Signs Temp Pulse Resp BP Pulse Ox 97.7 F 57 L 22 170/59 97 01/01/19 23:41 01/01/19 23:41 01/01/19 23:41 01/01/19 23:41 01/01/19 23:41 - Physical Exam Narrative exam: Patient is awake, alert, oriented x4, follows complex commands. EOMI, PERRL, no facial weakness noted, tongue midline, no dysarthia/aphasia noted, b/l intact to LT. B/l intact to LT in all extremities. 5/5 strength in all extremities. 2+ reflexes throughout. B/l intact to HTS and FTN. - Constitutional General appearance: comfortable - EENT EENT: Present: ATNC, PERRL, mucous membranes moist, hearing intact, vision intact - Respiratory Respiratory: Present: lungs clear, normal breath sounds - Cardiovascular Cardiovascular: Present: regular rate, normal S1, normal S2 Extremities: Present: no clubbing, cyanosis, no inflammation - Gastrointestinal Gastrointestinal: Present: normoactive bowel sounds, soft, non-tender - Integumentary Integumentary: Present: normal - Musculoskeletal Musculoskeletal: Present: no fluid collection, normal range of motion - Psychiatric Psychiatric: Present: mood/affect appropriate - Level of Consciousness 1a. Level of Consciousness: alert/keenly responsive - LOC Questions 1b. LOC Questions: answers both correctly - LOC Command 1c. LOC Commands: performs tasks correctly - Best Gaze 2. Best Gaze: normal - Visual 3. Visual: no visual loss - Facial Palsy 4. Facial Palsy: normal symmetrical movement - Motor Arm 5a. Motor Arm Left: no drift 5b. Motor Arm Right: no drift - Motor Leg 6a. Motor Leg Left: no drift 6b. Motor Leg Right: no drift - Limb Ataxia 7. Limb Ataxia: absent - Sensory 8. Sensory: normal - Best Language 9. Best Language: no aphasia - Dysarthria 10. Dysarthria: normal - Extinction and Inattention 11. Extinction/Inattention: no abnormality - Scoring Total Score: 0 Stroke Severity: No Stroke Symptoms Results - Laboratory Findings CBC and BMP: 01/02/19 00:07 01/02/19 00:07 Abnormal Lab Findings: Abnormal Labs 01/02/19 01/02/19 01/02/19 00:07 00:07 00:59 [place] % (Auto) 8.4 H Baso % (Auto) 2.6 H Baso # 0.2 H Carbon Dioxide 33 H BUN 32 H Glucose 102 H Magnesium 2.60 H Assessment and Plan Patient is an 78 y/o man w/ a h/o HTN, COPD, GERD, macular degneration, who p/w left facial numbness and chest tightness. According to patient's clinical findings, it is possible that he has had a TIA. Plan: 1. TIA: - MRI pending - MRA head/neck pending - CT head showed Rt. temporal encephalomalacia, which is likely from previous TBI which occurred at age 28. - Echo: EF 40-45%, bubble study negative, LA size normal - Cont. ASA - Cont. statin - PT/OT/ST - DVT Ppx: Recommend lovenox - Telemetry monitoring while in house 2. Hypertension: - Recommend target normotension, as symptoms have resolved 3. Chest pain: - Further w/u per primary/cardiology - Will continue to follow patient Thank you for allowing me to take part in the care of this patient. Dixon Cabello MD Neurology
[2019-01-02] MEDS: DUONEB *Not for PRN Use IH SCH (20:11)
[2019-01-02] MEDS ORDERED: ENOXAPARIN SUB-Q SCH (22:00)
[2019-01-03] MEDS: DUONEB *Not for PRN Use IH SCH ×4 (01:21→15:03)
[2019-01-03 04:28] LABS: Bilirubin,Urine NEG (Negative); Blood,Urine NEG (Negative); Color,Urine Yellow (Yellow); Mucus,Urine FEW /HPF; Protein,Urine <15 mg/dL mg/dL (Negative); RBC,Urine < 1.0 /HPF (0.0-6.0); Urobilinogen,Urine < 2.0 mg/dL (<2.0)
--- NOTE | 2019-01-03 05:32 | Treadmill Report ---
NUCLEAR STRESS TEST REPORT The patient is brought to the Cardiology lab and a Lexiscan stress test is performed. The patient tolerated the procedure well. Post-stress images revealed fairly homogeneous distribution of the isotope. Mild apical defect is noted with minimal reversibility of questionable significance. Accompanying gated study shows good systolic function with ejection fraction of 58%. IMPRESSION: 1. Left ventricular systolic function is normal. Ejection fraction is noted to be 58%. 2. No significant reversible areas are noted to indicate definite ischemia. Suggest clinical correlation. JOB# [id number] KBM/NTS
[2019-01-03] MEDS: NITRO-BID 2% TP SCH ×3 (06:03→13:32)
[2019-01-03] MEDS: ASPIRIN PO SCH (09:00)
--- NOTE | 2019-01-03 12:41 | Magnetic Resonance Report ---
MR MRA/MRV head wo con INDICATION / CLINICAL INFORMATION: 78 years Male; TIA. TECHNIQUE: 3-D time of flight. NASCET type criteria used to evaluate stenoses. Some motion artifact. COMPARISON: None available. FINDINGS: INTERNAL CAROTID ARTERIES: No significant narrowing appreciated. VERTEBROBASILAR SYSTEM: No significant narrowing appreciated. DISTAL BRANCHES: Distal branches of the anterior, middle, and posterior cerebral arteries are fairly symmetric in appearance and number. The P1 segment on the right is hypoplastic-normal variant. A bradley rity of blood flow to the posterior cerebral circulation is via the posterior communicating artery. ANEURYSM: None identified. ADDITIONAL FINDINGS: Encephalomalacia seen in the right temporal lobe region. Prior surgery may have been performed. Please clinically correlate. IMPRESSION: No significant abnormality appreciated on this MRA of the brain. Signer Name: Filiberto Mcclellan MD, III Signed: 01/03/2019 12:36 PM Workstation Name: [id number]
--- NOTE | 2019-01-03 12:48 | Magnetic Resonance Report ---
MR MRA/MRV neck wo con INDICATION / CLINICAL INFORMATION: 78 years Male; TIA. TECHNIQUE: 2-D time of flight performed prior to contrast. NASCET criteria used for stenosis evaluati on. COMPARISON: None available. FINDINGS: ARCH: Aortic arch and proximal great vessels are not well visualized on this exam. CAROTID ARTERIES: The visualized common and internal carotid arteries are widely patent. VERTEBRAL ARTERIES: Codominant vertebral system seen. No significant stenosis appreciated. IMPRESSION: No significant stenosis appreciated on this unenhanced MRA of the neck. Signer Name: Filiberto Mcclellan MD, III Signed: 01/03/2019 12:44 PM Workstation Name: [id number]
--- NOTE | 2019-01-03 13:06 | Progress Note ---
Assessment and Plan Patient is an 78 y/o man w/ a h/o HTN, COPD, GERD, macular degneration, who p/w left facial numbness and chest tightness. According to patient's clinical findings, it is possible that he has had a TIA. Plan: 1. TIA: - MRI did not reveal any acute abnormality. 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 - MRA head/neck: unremarkable - CT head showed Rt. temporal encephalomalacia, which is likely from previous TBI which occurred at age 28. - Echo: EF 40-45%, bubble study negative, LA size normal - Cont. ASA - Start patient on dual anti-platelet therapy with ASA 81mg daily and Plavix 75mg daily for 90 days, after which Plavix can be stopped. Risks/benefits of dual antiplatelet therapy discussed with patient, and he agreed to start this. - Cont. statin - PT/OT/ST - DVT Ppx: Recommend lovenox - Telemetry monitoring while in house 2. Hypertension: - Recommend target normotension, as symptoms have resolved 3. Chest pain: - Further w/u per primary/cardiology - Will sign off, as neurologic investigations are complete, and treatment plan is in place. Please call with any questions. Thank you for allowing me to take part in the care of this patient. Dixon Cabello MD Neurology Subjective Date of service: 01/03/19 Principal diagnosis: TIA Interval history: No acute events overnight. Objective - Exam Narrative Exam: Patient is awake, alert, oriented x4, follows complex commands. EOMI, PERRL, VFF, no facial weakness noted, tongue midline, no dysarthia/aphasia noted, b/l intact to LT. B/l intact to LT in all extremities. 5/5 strength in all extremities. 2+ reflexes throughout. B/l intact to HTS and FTN. - Vital Sign Vital Signs - 12hr 01/03/19 01/03/19 01/03/19 03:56 06:03 07:57 Temperature 98.1 F 97.4 F L Pulse Rate 91 H 91 H 91 H Respiratory 16 16 Rate Blood Pressure 117/58 117/58 134/60 O2 Sat by Pulse 98 99 Oximetry 01/03/19 01/03/19 01/03/19 09:01 10:00 11:00 Temperature Pulse Rate 91 H 85 Respiratory 21 Rate Blood Pressure 134/60 O2 Sat by Pulse Oximetry - General Apperance Constitutional: comfortable - EENT EENT: ATNC, PERRL, mucous membranes moist, hearing intact, vision intact - Respiratory Respiratory: lungs clear, normal breath sounds - Cardiovascular Cardiovascular: regular rate, normal S1, normal S2 Extremities: no clubbing, cyanosis, no inflammation - Gastrointestinal Gastrointestinal: normoactive bowel sounds, soft, non-tender - Integumentary Integumentary: normal - Musculoskeletal Musculoskeletal: no fluid collection, no pain, normal range of motion - Psychiatric Psychiatric: mood/affect appropriate - Laboratory Findings CBC and BMP: 01/02/19 00:07 01/02/19 00:07 Abnormal Lab Findings: Abnormal Labs 01/02/19 01/02/19 01/02/19 00:07 00:07 00:59 [place] % (Auto) 8.4 H Baso % (Auto) 2.6 H Baso # 0.2 H Carbon Dioxide 33 H BUN 32 H Glucose 102 H Magnesium 2.60 H
--- NOTE | 2019-01-03 13:17 | Magnetic Resonance Report ---
MRI BRAIN 01/03/2019 INDICATION / CLINICAL INFORMATION: NUMBNESS OF LEFT SIDE OF FACE. TECHNIQUE: Multiplanar, multisequence MR images of the brain were obtained. COMPARISON: CT brain 01/02/2019 FINDINGS: BRAIN / INTRACRANIAL CONTENTS: Unenhanced MR images of the brain were obtained. There is no evidence of acute abnormality. Ventricles and sulci are slightly prominent in size, consistent with normal age-related atrophic bailey ge. Encephalomalacia of the right anterior temporal lobe is noted, associated with a right temporal c raniotomy defect. This is presumably associated with prior postsurgical change and or changes associa lynda with the underlying lesion or abnormality. There is no evidence of acute ischemic injury, hemorrhage, or mass. There are no abnormal extra-axial fluid collections. EXTRACRANIAL: Unremarkable CRANIOCERVICAL JUNCTION: No significant abnormality. VASCULAR FLOW-VOIDS: No significant abnormality. IMPRESSION: No acute abnormality. Right temporal lobe encephalomalacia and postoperative change. Signer Name: Tono Sandhu MD Signed: 01/03/2019 1:13 PM Workstation Name: [id number]
[2019-01-03 13:33] VITALS: BP 130/60
--- NOTE | 2019-01-03 14:30 | Discharge Summary ---
Providers - Providers Date of Admission: 01/02/19 03:43 Date of discharge: 01/03/19 Attending physician: ALLEN HERNANDEZ 01/02/19 06:00 Consult to Physician [CONS] Routine Comment: Consulting Provider: NOREEN DODGE Physician Instructions: Reason For Exam: NUMBNESS OF LEFT SIDE OF FACE 01/02/19 17:05 Occupational Therapy Evaluate and Treat [CONS] Routine Comment: Reason For Exam: CVA WORK-UP Physical Therapy Evaluation and Treat [CONS] Routine Comment: Reason For Exam: CVA WORK-UP Primary care physician: CONTROL SUPERVISOR Hospitalization Condition: Stable Hospital course: Patient is a 78 yo man with a history of hypertension, GERD, COPD with home o2, ex smoker and macular degeneration who presented with left sided facial transient numbness and transient chest pains that has resolved. Chest pains felt like heartburn that he had before. * TTE Conclusions: Est EF 40-45%, abnormal LV diastolic filling, c/w impaired r elaxation Discharge Diagnoses: TIA Chest pains, atypical suspect GERD related Chronic hypoxic respiratory failure COPD by history Disposition: DC-01 TO HOME OR SELFCARE Time spent for discharge: 36 minutes Core Measure Documentation - Palliative Care Palliative Care/ Comfort Measures: Not Applicable - Core Measures Any of the following diagnoses?: none - VTE Discharge Requirements Deep Vein Thrombosis/Pulmonary Embolism Present on Admission: No Has pt received <5 days of overlap therapy or INR<2.0: No Anticoagulant overlap therapy prescribed at discharge: No Contraindication No Overlap Therapy order at DC: Not Indicated Exam - Physical Exam Narrative exam: Gen: WDWN, NAD, Awake, Alert, Orientated HEENT: NCAT, EOMI, PERRL, OP Clear Neck: supple, no adenopathy, no thyromegaly, no JVD CVS/Heart: RRR, normal S1S2, pulses present bilaterally Chest/Lungs: CTA B, Symmetrical chest expansion, good air entry bilaterally GI/Abdomen: soft, NTND, good bowel sounds, no guarding or rebound /Bladder: no suprapubic tenderness, no CVA or paraspinal tenderness Extermity/Skin: no c/c/e, no obvious rash MSK: FROM x 4 Neuro: CN 2-12 grossly intact, no new focal deficits Psych: calm - Constitutional Vitals: Temp Pulse Resp BP Pulse Ox 97.4 F L 91 H 21 130/60 96 10/22/19 07:57 01/03/19 13:32 01/03/19 11:00 01/03/19 13:32 01/03/19 14:14 Plan Activity: other (no strenous activity unless cleared by Remote Control Assembler) Diet: low salt Special Instructions: record daily weights, record daily BP diary Follow up with: PRIMARY CARE, [Primary Care Provider] - 7 Days TOMEKA MIXON MD [Staff Physician] - 7 Days Prescriptions: AtorvaSTATin [Lipitor] 40 mg PO QHS #30 tablet Aspirin 325 mg PO QDAY #30 tablet Pantoprazole [Protonix] 40 mg PO QDAY #30 tablet
[2019-01-03] MEDS ORDERED: DUONEB *Not for PRN Use IH SCH (20:00)
[2019-01-04] MEDS ORDERED: HALFPRIN EC PO SCH (10:00)
[2019-01-04] MEDS ORDERED: PLAVIX PO SCH (10:00)
== END 2019-01-03 16:10 | disposition home or self-care (01) ==
LOC: ED 23:23 → 4A 01-02 03:43
PROVIDERS: ADMIT Internal Medicine; ATTEND Internal Medicine
DX: R20.2 Paresthesia of skin (principal); R07.89 Other chest pain; I10 Essential (primary) hypertension; K21.9 Gastro-esophageal reflux disease without esophagitis; G93.89 Other specified disorders of brain; J44.9 Chronic obstructive pulmonary disease, unspecified; Z90.49 Acquired absence of other specified parts of digestive tract; Z87.891 Personal history of nicotine dependence
CPT/HCPCS: 36415; 70450; 70544; 70547; 70551; 71045; 78452; 80048; 80061; 81001; 82550; 82553; 83735; 84100; 84484; 85025; 85379; 85610; 85730; 93005; 93010; 93017; 93306; 94640; 94760; 96372; 97161; 99284; A9270; A9502; G0378; J1650; J2785

== ENCOUNTER 2019-01-09 20:51 | Emergency (ER) | payer MEDICARE, OTHER ==
--- NOTE | 2019-01-09 21:14 | Emergency Department Report ---
Blank Doc - Documentation Documentation: 78-year-old male that presents with right flank pain. This initial assessment/diagnostic orders/clinical plan/treatment(s) is/are subject to change based on patient's health status, clinical progression and re- assessment by fellow clinical providers in the ED. Further treatment and workup at subsequent clinical providers discretion. Patient/guardians urged not to elope from the ED as their condition may be serious if not clinically assessed and managed. Initial orders include: 1- Patient sent to Main ED for further evaluation and treatment 2- UA
[2019-01-09 22:02] LABS: Basophils # (Auto) 0.1 K/mm3 (0.0-0.1); Basophils % (Auto) 1.3 % (0.0-1.8); Eosinophils # (Auto) 0.3 K/mm3 (0.0-0.4); Hematocrit 39.1 % (35.5-45.6); Hemoglobin 12.7 gm/dl (11.8-15.2); Lymphocytes # (Auto) 1.6 K/mm3 (1.2-5.4); Lymphocytes % (Auto) 18.6 % (13.4-35.0); Mean Corpuscular HGB Conc 33 % (32-34); Mean Corpuscular Volume 92 fl (84-94); Monocytes # (Auto) 0.6 K/mm3 (0.0-0.8); Monocytes % (Auto) 7.5 % (0.0-7.3); Platelet Count 167 K/mm3 (140-440); Red Blood Count 4.23 M/mm3 (3.65-5.03); Red Cell Distribution Width 14.7 % (13.2-15.2)
[2019-01-09 22:11] LABS: Alanine Aminotransferase 20 units/L (7-56); Albumin 4.5 g/dL (3.9-5); BUN/Creatinine Ratio 33; Blood Urea Nitrogen 23 mg/dL (9-20); Calcium 9.7 mg/dL (8.4-10.2); Hemolysis Index 20
[2019-01-09 22:48] LABS: Amorphous Crystals,Urine Few; Bilirubin,Urine NEG (Negative); Blood,Urine NEG (Negative); Color,Urine Yellow (Yellow); Mucus,Urine FEW /HPF; Protein,Urine <15 mg/dL mg/dL (Negative); Urobilinogen,Urine < 2.0 mg/dL (<2.0)
[2019-01-09 22:50] LABS: WBC,Urine < 1.0 /HPF (0.0-6.0)
[2019-01-10 00:44] VITALS: BP 141/84
--- NOTE | 2019-01-10 04:25 | Cat Scan Report ---
CT ABDOMEN AND PELVIS WITHOUT CONTRAST INDICATION: R. FLANK PAIN CONTRAST: Without IV COMPARISON: CT chest 09/29/2018, CT abdomen and pelvis 03/13/[address] scans at this location are performed using CT dose reduction for ALARA by means of automated e xposure control. Note: Motion artifact degrades the study, particularly in the upper pelvic region. FINDINGS: Chronic changes are again seen in the lung bases including large area of calcification tex g the right hemidiaphragm. Small hiatal hernia is noted. Gallbladder is mildly distended and appears to show mild dependent sludge but no definite calculi or wall thickening are seen. No biliary dilatat ion is noted. Pancreas shows no abnormalities. Cysts are again seen in the left kidney. No other mass es are seen. Atherosclerotic changes are seen without aneurysmal dilatation. No free fluid is seen. N o lymphadenopathy is noted. No evidence of bowel obstruction is seen. No focal inflammatory changes a re noted. Appendix is not clearly seen. No renal or ureteral calculi are seen. No obstructive changes are noted. A calculus is noted in the b ladder dependently. Prostate is mildly enlarged and impinges mildly on the base of the bladder. Semin al vesicles are not enlarged. IMPRESSION: 1. No acute abnormalities are seen 2. Small bladder calculus Signer Name: Edward Torres MD Signed: 01/10/2019 4:21 AM Workstation Name: [id number]
--- NOTE | 2019-01-10 04:51 | Emergency Department Report ---
ED Abdominal Pain HPI - General Chief Complaint: Back Pain/Injury Stated Complaint: RIGHT KIDNEY PAIN Time Seen by Provider: 01/09/19 21:13 Source: patient Mode of arrival: Ambulatory Limitations: Other - History of Present Illness Initial Comments: 78-year-old male that presents with right flank pain x one day, radiating to groin, pain on onset 10/10, sharp, but currently 3/10. no hematuria. no fever, chills or night sweats. MD Complaint: abdominal pain, flank pain Severity scale (0 -10): 5 - Related Data Previous Rx's Medication Instructions Recorded Last Taken Type Glimepiride 1 mg PO QDAY #30 tablet 07/07/17 Unknown Rx Ipratropium/Albuter (Nf) 2 puff IH QID #1 inha 07/07/17 Unknown Rx [Combivent Inhaler] ALBUTEROL Inhaler (OR & NICU) 2 puff IH QID PRN #1 inhalation 10/05/17 Unknown Rx [ProAir HFA Inhaler] Ipratropium/Albuterol Sulfate 1 ampul IH Q6HR #100 ampul.neb 10/05/17 Unknown Rx [DUONEB *Not for PRN Use*] Acetaminophen [Acetaminophen TAB] 1 tab PO Q4H PRN #10 tablet 01/03/19 Unknown Rx Aspirin [Aspirin BABY CHEW TAB] 81 mg PO QDAY #30 tab.chew 01/03/19 Unknown Rx AtorvaSTATin [Lipitor] 40 mg PO QHS #30 tablet 01/03/19 Unknown Rx Pantoprazole [Protonix] 40 mg PO QDAY #30 tablet 01/03/19 Unknown Rx raNITIdine HCl [Zantac] 150 mg PO DAILY #30 01/03/19 Unknown Rx Cyclobenzaprine [Flexeril] 10 mg PO TID PRN #15 tablet 01/10/19 Unknown Rx Allergies Allergy/AdvReac Type Severity Reaction Status Date / Time No Known Allergies Allergy Verified 03/29/16 15:03 ED Review of Systems ROS: Stated complaint: RIGHT KIDNEY PAIN Other details as noted in HPI Comment: All other systems reviewed and negative Gastrointestinal: abdominal pain. denies: nausea Genitourinary: denies: urgency Skin: denies: rash Neurological: denies: headache ED Past Medical Hx - Past Medical History Hx Hypertension: Yes Hx GERD: Yes Hx COPD: Yes (O2 at home) Additional medical history: Macular degeneration, HEARING AIDS. SBO. hernia (doesn't remember what type). emphysema - Surgical History Hx Appendectomy: Yes Additional Surgical History: BLOOD CLOTS BEHIND RIGHT EYE REMOVED. CATARACT SURGERY BOTH EYES REMOVED. HERNIA REPAIR - Social History Smoking Status: Former Smoker - Medications Home Medications: Home Medications Medication Instructions Recorded Confirmed Last Taken Type Glimepiride 1 mg PO QDAY #30 tablet 07/07/17 01/02/19 Unknown Rx Ipratropium/Albuter (Nf) 2 puff IH QID #1 inha 07/07/17 01/02/19 Unknown Rx [Combivent Inhaler] ALBUTEROL Inhaler (OR & NICU) 2 puff IH QID PRN #1 inhalation 10/05/17 01/02/19 Unknown Rx [ProAir HFA Inhaler] Ipratropium/Albuterol Sulfate 1 ampul IH Q6HR #100 ampul.neb 10/05/17 01/02/19 Unknown Rx [DUONEB *Not for PRN Use*] Acetaminophen [Acetaminophen TAB] 1 tab PO Q4H PRN #10 tablet 01/03/19 Unknown Rx Aspirin [Aspirin BABY CHEW TAB] 81 mg PO QDAY #30 tab.chew 01/03/19 Unknown Rx AtorvaSTATin [Lipitor] 40 mg PO QHS #30 tablet 01/03/19 Unknown Rx Pantoprazole [Protonix] 40 mg PO QDAY #30 tablet 01/03/19 Unknown Rx raNITIdine HCl [Zantac] 150 mg PO DAILY #30 01/03/19 01/02/19 Unknown Rx Cyclobenzaprine [Flexeril] 10 mg PO TID PRN #15 tablet 01/10/19 Unknown Rx ED Physical Exam - General Limitations: No Limitations, Other General appearance: alert, in no apparent distress - Head Head exam: Present: atraumatic, normocephalic - Eye Eye exam: Present: normal appearance, PERRL, EOMI Pupils: Present: normal accommodation - Neck Neck exam: Present: normal inspection - Respiratory Respiratory exam: Present: normal lung sounds bilaterally - Cardiovascular Cardiovascular Exam: Present: regular rate, normal rhythm - GI/Abdominal GI/Abdominal exam: Present: soft - Neurological Exam Neurological exam: Present: alert, oriented X3, CN II-XII intact - Psychiatric Psychiatric exam: Present: normal affect - Skin Skin exam: Present: warm ED Course Vital Signs 01/10/19 00:43 Temperature 97.8 F Pulse Rate 77 Respiratory 20 Rate Blood Pressure 141/84 [Right] O2 Sat by Pulse 95 Oximetry ED Medical Decision Making - Lab Data Result diagrams: 01/09/19 21:40 01/09/19 21:40 - Medical Decision Making ct findings explained to patient he is pain free, wants to go home. Critical care attestation.: If time is entered above; I have spent that time in minutes in the direct care of this critically ill patient, excluding procedure time. ED Disposition Clinical Impression: Bladder calculus, Right flank pain Disposition: DC-01 TO HOME OR SELFCARE Is pt being admited?: No Does the pt Need Aspirin: No Condition: Stable Instructions: Kidney Stones (ED), How to Strain Your Urine (ED), Flank Pain ( ED) Prescriptions: Cyclobenzaprine [Flexeril] 10 mg PO TID PRN #15 tablet PRN Reason: Muscle Spasm Referrals: PRIMARY CARE, [Primary Care Provider] - 3-5 Days
== END 2019-01-10 04:57 | disposition home or self-care (01) ==
LOC: ED 20:51
DX: N21.0 Calculus in bladder (principal); I10 Essential (primary) hypertension; K21.9 Gastro-esophageal reflux disease without esophagitis; J43.9 Emphysema, unspecified; Z98.890 Other specified postprocedural states; F17.200 Nicotine dependence, unspecified, uncomplicated; Z79.899 Other long term (current) drug therapy; Z79.82 Long term (current) use of aspirin
CPT/HCPCS: 36415; 74176; 80053; 81001; 85025; 87086; 99284

== ENCOUNTER 2019-05-28 22:24 | Emergency (ER) | payer MEDICARE, OTHER ==
[2019-05-28 22:30] VITALS: BP 180/77
== END 2019-05-28 23:23 | disposition left against medical advice (07) ==
LOC: ED 22:24
DX: M79.602 Pain in left arm (principal); Z53.21 Procedure and treatment not carried out due to patient leaving prior to being seen by health care provider

== ENCOUNTER 2020-07-22 10:21 | Outpatient (CLI) | payer MEDICARE, OTHER ==
[2020-07-22 11:05] LABS: Basophils # (Auto) 0.1 K/mm3 (0.0-0.1); Basophils % (Auto) 1.5 % (0.0-1.8); Eosinophils # (Auto) 0.3 K/mm3 (0.0-0.4); Eosinophils % (Auto) 4.7 % (0.0-4.3); Hemoglobin 12.9 gm/dl (11.8-15.2); Lymphocytes # (Auto) 0.9 K/mm3 (1.2-5.4); Lymphocytes % (Auto) 13.3 % (13.4-35.0); Mean Corpuscular HGB Conc 33 % (32-34); Mean Corpuscular Volume 94 fl (84-94); Monocytes # (Auto) 0.3 K/mm3 (0.0-0.8); Monocytes % (Auto) 5.4 % (0.0-7.3); Platelet Count 143 K/mm3 (140-440); Red Blood Count 4.17 M/mm3 (3.65-5.03); Red Cell Distribution Width 14.6 % (13.2-15.2)
[2020-07-22 11:26] LABS: Alanine Aminotransferase 27 units/L (7-56); Albumin 4.2 g/dL (3.9-5); Blood Urea Nitrogen 26 mg/dL (9-20); Calcium 9.1 mg/dL (8.4-10.2); Chol/HDL Ratio 2.25 %; HDL Cholesterol 56 mg/dL (40-59); Hemolysis Index 6; LDL Cholesterol,Direct 64 mg/dL (50-130)
[2020-07-22 11:27] LABS: BUN/Creatinine Ratio 52
[2020-07-22 11:37] LABS: Free T4 (Free Thyroxine) 1.42 ng/dL (0.76-1.46)
--- NOTE | 2020-07-22 12:22 | XRay Report ---
CHEST 1 VIEW INDICATION: PLEURAL PLAQUES. COMPARISON: 01/02/2019 FINDINGS: Support devices: None. Heart: Within normal limits. Lungs/Pleura: Advanced emphysematous changes are evident. No evidence for infiltrate, mass, pleural f luid or pneumothorax. Approximate 4.8 cm calcified pleural plaque at the right lung base is unchanged since 01/02/2019. This probably represents a previous right pleural insult such as complex pleural e ffusion. This is not the typical appearance of previous asbestos exposure as it is unilateral. Additional findings: None. IMPRESSION: Advanced emphysema. Stable focal calcified pleural plaque along the right hemidiaphragm. See above. No change since 01/02/2019. Signer Name: Tanvir Roman Jr, MD Signed: 07/22/2020 12:17 PM Workstation Name: [id number]
--- NOTE | 2020-07-22 13:24 | Cat Scan Report ---
CT CHEST WITH CONTRAST INDICATION / CLINICAL INFORMATION: COPD. TECHNIQUE: Axial CT images were obtained through the chest after 100 cc Omnipaque 300 IV contrast. Sagittal and coronal reformatted images. All CT scans at this location are performed using CT dose reduction for A GLADYS by means of automated exposure control. COMPARISON: 09/29/2018 FINDINGS: HEART: No significant abnormality. THORACIC AORTA: Scattered calcific plaques. No aneurysm or dissection. MEDIASTINUM and ELO: No significant abnormality. LUNGS: Severe centrilobular emphysematous changes are again seen bilaterally. No evidence for infiltr ate or suspicious pulmonary lesion. PLEURA: No significant pleural effusion. Calcified pleural plaque at the right hemidiaphragm appears stable in size measuring 5.7 x 4.1 cm in axial plane. No additional pleural plaques are appreciated. No pneumothorax. SKELETAL SYSTEM: Osteopenia. No fracture or suspicious bony lesion. UPPER ABDOMEN: No significant abnormality. ADDITIONAL FINDINGS: None. IMPRESSION: Stable findings since 09/29/2018 exam. Advanced centrilobular emphysema. Stable calcified plaque along the right hemidiaphragm. Signer Name: Tanvir Roman Jr, MD Signed: 07/22/2020 1:20 PM Workstation Name: [id number]
== END 2020-07-22 10:22 | disposition home or self-care (01) ==
LOC: CT 10:21
PROVIDERS: ATTEND Internal Medicine
DX: J43.9 Emphysema, unspecified (principal); J92.9 Pleural plaque without asbestos; R63.4 Abnormal weight loss; R91.8 Other nonspecific abnormal finding of lung field; Z68.1 Body mass index [BMI] 19.9 or less, adult; I10 Essential (primary) hypertension
CPT/HCPCS: 36415; 71046; 71260; 80053; 80061; 84436; 84439; 84443; 85025; Q9967

== ENCOUNTER 2021-03-13 10:09 | Outpatient (CLI) | payer MEDICARE, OTHER ==
--- NOTE | 2021-03-13 13:32 | Fluoroscopy Report ---
BARIUM ENEMA WITH AIR HISTORY: Weight loss. History of colonic polyps COMPARISON: None. TECHNIQUE: Routine enema was performed with high density barium and air insufflation. FINDINGS: Diesel Dragline Operator view: No significant abnormality. Colon: Diagnostic quality coating with normal colonic distensibility. The colon is somewhat redundant which limits this exam. There were a few filling defects within the colon consistent with mild fecal matter. No significant mucosal abnormality. No ulceration, stricture or mass. No obvious polyps are detected. The appendix is not identified. Additional findings: None. IMPRESSION: There is minimal fecal matter in the colon and a redundant colon which slightly limits this exam. Hav ing said that no colonic mass or polyposis is detected. Signer Name: Tanvir Roman Jr, MD Signed: 03/13/2021 1:28 PM Workstation Name: [id number]
== END 2021-03-13 10:10 | disposition home or self-care (01) ==
LOC: FLUORO 10:09
PROVIDERS: ATTEND Internal Medicine Gastroenterology
DX: K56.41 Fecal impaction (principal); R63.4 Abnormal weight loss
CPT/HCPCS: 74280